=== PATIENT | female | born 1930 | race Caucasian/White ===

== ENCOUNTER → 2016-05-05 | Outpatient (CLI) | payer OTHER | LOC: MMPC 11:11 | DX: I34.0 Nonrheumatic mitral (valve) insufficiency (principal); I35.0 Nonrheumatic aortic (valve) stenosis; E55.9 Vitamin D deficiency, unspecified; K21.9 Gastro-esophageal reflux disease without esophagitis; E03.9 Hypothyroidism, unspecified; I48.91 Unspecified atrial fibrillation; H40.9 Unspecified glaucoma | CPT/HCPCS: 99213 ==

== ENCOUNTER → 2016-06-25 | Outpatient (CLI) | payer OTHER ==
[2016-06-25 17:22] LABS: BASOPHILS # (AUTO) 0.05 10*3/UL; BASOPHILS % (AUTO) 0.7 % (0-1); EOSINOPHILS % (AUTO) 3.6 % (0-8); HEMATOCRIT 39.8 % (37.0-47.0); HEMOGLOBIN 13.2 g/dL (12.0-16.0); IMM GRAN % (AUTO) 0.1 % (0-5); IMM GRAN# (AUTO) 0.01 10*3/UL; LYMPHOCYTES # (AUTO) 2.69 10*3/uL; LYMPHOCYTES % (AUTO) 37.6 % (10-50); MEAN CORPUSCULAR HEMOGLOBIN 31.8 PG (27-31); MEAN CORPUSCULAR HGB CONC 33.2 g/dL (33-37); MEAN PLATELET VOLUME 10.9 FL (7.4-12.2); MONOCYTES # (AUTO) 0.98 10*3/UL (0.3-0.8); MONOCYTES % (AUTO) 13.7 % (5-15); NEUTROPHILS # (AUTO) 3.16 10*3/UL; NEUTROPHILS % (AUTO) 44.3 % (50-80); RDW COEFFICIENT OF VARIATION 13.4 % (11.5-14.5); RED BLOOD COUNT 4.15 10^6/uL (4.20-5.40); WHITE BLOOD COUNT 7.15 10^3/uL (4.8-10.8)
[2016-06-25 17:29] LABS: PLATELET MORPHOLOGY COMMENT NORMAL MORPHOLOGY (NORM)
[2016-06-25 17:34] LABS: ASPARTATE AMINO TRANSFERASE 33 IU/L (8-39); BILIRUBIN,TOTAL 0.6 mg/dL (0.3-1.2); BLOOD UREA NITROGEN 26 mg/dL (7-22); CALCIUM 9.1 mg/dL (8.7-10.7); CHLORIDE 103 meq/L (98-112); CREATININE 1.3 mg/dL (0.50-1.20); GLUCOSE 106 mg/dL (78-110); HDL CHOLESTEROL 51 mg/dL (40-150); POTASSIUM 3.9 meq/L (3.8-5.2); SODIUM 143 meq/L (135-145); TOTAL PROTEIN 7.3 g/dL (6.1-8.0); TRIGLYCERIDES 143 mg/dL (44-200)
== END ==
LOC: MOB LAB 14:57
DX: I50.9 Heart failure, unspecified (principal); I34.0 Nonrheumatic mitral (valve) insufficiency; I10 Essential (primary) hypertension; K21.9 Gastro-esophageal reflux disease without esophagitis
CPT/HCPCS: 36415; 80053; 80061; 83880; 85025

== ENCOUNTER → 2016-08-28 | Outpatient (CLI) | payer OTHER ==
[2016-08-28 15:45] LABS: BASOPHILS # (AUTO) 0.04 10*3/UL; BASOPHILS % (AUTO) 0.5 % (0-1); EOSINOPHILS # (AUTO) 0.47 10*3/UL; HEMATOCRIT 37.1 % (37.0-47.0); HEMOGLOBIN 12.5 g/dL (12.0-16.0); LYMPHOCYTES # (AUTO) 2.53 10*3/uL; MEAN CORPUSCULAR HEMOGLOBIN 31.3 PG (27-31); MEAN CORPUSCULAR HGB CONC 33.7 g/dL (33-37); MEAN CORPUSCULAR VOLUME 92.8 FL (81-99); MEAN PLATELET VOLUME 10.6 FL (7.4-12.2); MONOCYTES # (AUTO) 0.91 10*3/UL (0.3-0.8); MONOCYTES % (AUTO) 11.6 % (5-15); NEUTROPHILS # (AUTO) 3.91 10*3/UL; NEUTROPHILS % (AUTO) 49.7 % (50-80)
[2016-08-28 15:51] LABS: PLATELET MORPHOLOGY COMMENT NORMAL MORPHOLOGY (NORM); RBC MORPHOLOGY COMMENT NORMAL MORPHOLOGY (NORM); WBC MORPHOLOGY COMMENT NORMAL MORPHOLOGY (NORM)
[2016-08-28 15:53] LABS: BUN/CREATININE RATIO 20.9 (6-20); CALCIUM 9.4 mg/dL (8.7-10.7)
== END ==
LOC: MOB LAB 14:03
DX: K21.9 Gastro-esophageal reflux disease without esophagitis (principal); I10 Essential (primary) hypertension; I34.0 Nonrheumatic mitral (valve) insufficiency; I50.9 Heart failure, unspecified
CPT/HCPCS: 36415; 80048; 83880; 85025

== ENCOUNTER 2016-09-01 07:11 | Day surgery (SDC) | payer OTHER ==
[~2016-09-01 07:11] MED LIST: LIDOCAINE W/ SODIUM BICARB 0.5 ML SYR ONE; Lactated Ringers 1,000 ML PRIMARY IV ONE
[2016-09-01] MEDS ORDERED: fentaNYL Inj 100 MCG/2 ML VIAL IVP ONE (07:30)
[2016-09-01] MEDS ORDERED: MIDAZOLAM 5 MG/1 ML IVP ONE (07:30)
[2016-09-01 10:30] VITALS: RESP 16; TEMP 97.8
== END 2016-09-01 10:35 | disposition home or self-care (01) ==
LOC: SDSC 07:11
PROVIDERS: ATTEND Ophthalmology
DX: H25.11 Age-related nuclear cataract, right eye (principal); I38 Endocarditis, valve unspecified; E55.9 Vitamin D deficiency, unspecified; E03.9 Hypothyroidism, unspecified; K21.9 Gastro-esophageal reflux disease without esophagitis
CPT/HCPCS: 66984; J3010; J2250; J7120

== ENCOUNTER 2017-12-10 16:41 | Inpatient (IN) ==
[2017-12-10] MEDS ORDERED: ONDANSETRON 4 MG/2 ML VIAL IVP ONE (16:51)
[2017-12-10] MEDS ORDERED: Sodium Chloride 0.9% 1,000 ML PRIMARY IV ONE (16:51)
[2017-12-10 17:10] LABS: BLOOD UREA NITROGEN 12 mg/dL (7-22); SERUM ALBUMIN 4.9 g/dL (3.5-4.8)
[2017-12-10 17:21] LABS: Hematocrit [HCT] 46.1 % (37.0-47.0); Hemoglobin [HGB] 16.4 g/dL (12.0-16.0); MEAN CORPUSCULAR HEMOGLOBIN 32.3 PG (27-31); MEAN CORPUSCULAR VOLUME 90.9 FL (81-99); RED BLOOD COUNT 5.07 10^6/uL (4.20-5.40)
[2017-12-10 17:22] LABS: BASOPHILS % (AUTO) 0.2 % (0-1); EOSINOPHILS % (AUTO) 0 % (0-8); LYMPHOCYTES # (AUTO) 1.25 10*3/uL; MEAN CORPUSCULAR HGB CONC 35.6 g/dL (33-37); MONOCYTES # (AUTO) 0.49 10*3/UL (0.3-0.8); MONOCYTES % (AUTO) 5.3 % (5-15); NEUTROPHILS % (AUTO) 80.7 % (50-80)
[2017-12-10 17:23] LABS: BASOPHILS # (AUTO) 0.02 10*3/UL; EOSINOPHILS # (AUTO) 0 10*3/UL; PLATELET MORPHOLOGY COMMENT NORMAL MORPHOLOGY (NORM); RBC MORPHOLOGY COMMENT NORMAL MORPHOLOGY (NORM); WBC MORPHOLOGY COMMENT NORMAL MORPHOLOGY (NORM)
--- NOTE | 2017-12-10 17:44 | DI ---
CT Head WO Contrast,12/10/2017 4:50 PM: Clinical History: Confusion Previous Exam: October 11, 2017 Findings: Multiple helically acquired CT images are obtained through the brain without contrast, and demonstrat e normal, symmetric ventricles and other CSF containing spaces. There is no mass, hemorrhage or midli ne shift. There are advanced peripheral vascular calcifications within the left and right vertebral a rteries. Impression: No acute intracranial pathology.
[2017-12-10 18:12] LABS: BILIRUBIN,URINE NEGATIVE (NEG); CLARITY,URINE CLEAR (CLEAR); COLOR,URINE YELLOW (Y); GLUCOSE, URINE (UA) 100 mg/dL (NEG); OCCULT BLOOD,URINE SMALL (NEG); PROTEIN,URINE >300 mg/dl (NEG); UROBILINOGEN,URINE 0.2 EU/dL (0.2)
--- NOTE | 2017-12-10 18:16 | DI ---
XR CXR 1VW,12/10/2017 4:50 PM: Clinical History: Confusion Previous Exam: None at this facility. Findings: A single frontal radiograph of the chest is obtained, and demonstrate clear lungs. The cardiomediasti num and bony thorax are unremarkable. Overlying EKG leads are seen. Postsurgical changes are seen consistent with an persistent ductus arteriosus Impression: No acute disease.
[2017-12-10 18:27] LABS: BACTERIA,URINE RARE; RENAL EPITHELIAL CELLS,URINE MODERATE; SQUAMOUS EPITHELIAL CELL,UR MANY; URINE SAMPLE TYPE CATH SPECIMEN
[2017-12-10] MEDS ORDERED: AMIODARONE 50 MG/ML IV ONE (19:03)
[2017-12-10] MEDS ORDERED: D5W 100 ML IV ONE (19:19)
[2017-12-10] MEDS ORDERED: AMIODARONE 150 MG/100 ML IV ONE (19:23)
[2017-12-10] MEDS: AMIODARONE 360 MG/200 ML IV SCH (20:02)
--- NOTE | 2017-12-10 20:05 | PDOC ---
Nausea/Vomiting/Diarrhea HPI - General Chief Complaint: Nausea / Vomiting / Diarrhea Stated Complaint: 'NOT ACTING RIGHT' Date Seen by Provider: 12/10/17 Time Seen by Provider: 16:35 Source: POSITIVE: Patient, EMS, Other (Daughter) Exam Limitations: POSITIVE: No limitations Nurse's Notes Reviewed & Considered: Yes EMS Report Reviewed & Considered: Verbal - History of Present Illness Initial Comments: The patient is an 87-year-old female who is brought to the emergency department by ambulance with complaints of increased confusion and general malaise and weakness. 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 Apparently all day today she has had some increased confusion and some trouble with speech difficulty and word finding. She also has associated nausea and daughter reports several episodes of emesis. She has a poor appetite normally and today has not really eaten or drinking much of anything. She denies any current headache, chest pain, palpitation, shortness of breath, abdominal pain. She apparently had similar type symptoms about 6 weeks ago and was diagnosed with a TIA. She does have a history of chronic urinary incontinence, she denies urinary symptoms otherwise. She has not had any known fever. - Patient Home Medications Home Medications: Home Medications lisinopril 40 mg tablet 40 mg PO QDAY #90 tab 02/18/17 omeprazole 20 mg capsule,delayed release 20 mg PO QDAY #90 cap 04/29/17 aspirin 81 mg tablet,delayed release 81 mg PO QDAY 11/02/17 cholecalciferol (vitamin D3) 2,000 unit capsule 2,000 unit PO QDAY #30 cap 11/02 rosuvastatin 5 mg tablet 5 mg PO QDAY #90 tab 11/06/17 apixaban 2.5 mg tablet 2.5 mg PO BID #180 tab 11/30/17 levothyroxine 75 mcg tablet 75 mcg PO QDAY #90 tab 11/30/17 - Patient Allergies Allergies/Adverse Reactions: Allergies 3 Allergy/AdvReac Type Severity Reaction Status Date / Time Penicillins AdvReac Unknown UNSURE Verified 12/10/17 16:50 Past Medical History - heen HEENT History: Cataracts, Dentures/Partials Additional HEENT History: bottom Cardiovascular History: Hypertension, Other (please comment) Additional Cardiovasular History: BOVINE VALVE - TRICUSPID. VALVE WITH CLIPS - MITRAL VALVE Respiratory History: Denies History Gastrointestinal History: GERD Genitourinary History: Denies History Additional Genitourinary History: UTI 12/12/2015 Endocrine History: Hypothyroidism Musculoskeletal History: Back Pain Prosthesis or Implant: No Neurological History: TIA Blood Disorders: Denies History, Previous Bld Transfusions Additional Blood Disorders History: with heart surgery Psychiatric History: Denies History History of Sexually Transmitted Diseases: No Cancer History: Denies History In Past Year Been Physically Harmed or Verbally Threatened: No History of MDRO: No History of Other Communicable Diseases: No Tobacco Use: Never Smoker Alcohol Use: Occasionally In the Past 12 Months, Have Used or Abuse Any Substance: None Previous Surgical History: Yes Type / Date of Surgery: hysterectomy/ open heart/ CATARACT EXT Anesthesia Reactions: No Malignant Hyperthermia: No Significant Family History: Cancer Past Medical History Reviewed: Reviewed - No Changes ROS - Limitations ROS Limitations: No Limitations Constitution: REPORTS: Weakness, Other. DENIES: Chills, Fever Cardiovascular: DENIES: Chest Pain (General malaise today), Heart Palpitations, Edema Respiratory: DENIES: Shortness Of Breath Neurological: DENIES: Headache, Numbness, Weakness Gastrointestinal: REPORTS: Nausea, Vomitting. DENIES: Abdominal Pain, Diarrhea Endocrine: REPORTS: Fatigue Musculoskeletal: DENIES: Lower Extremity Swelling Genitourinary: REPORTS: Other (Chronic urinary incontinence). DENIES: Dysuria Eyes: REPORTS: Denies Symptoms ENT: REPORTS: Denies Symptoms Skin: DENIES: Rash Nausea/Vomiting/Diarrhea Exam - General Appearance General Appearance: POSITIVE: Alert, Cooperative, No Acute Distress - HEENT HEENT: POSITIVE: Head Inspection Nml, Eyes Inspection Nml, Ears Inspection Nml, Oral/Dental Inspect. Nml, Dry Mucous Membranes - Neck Neck: POSITIVE: Supple - Respiratory Respiratory: POSITIVE: No Respiratory Distress, Breath Sounds Normal - Cardiovascular Cardiovascular: POSITIVE: Other (She was tachycardic with a heart rate in the 130s) - Abdomen Abdomen: Soft: (All Quadrants), Normal Bowel Sounds: (All Quadrants), No Guarding: (All Quadrants), No Rebound: (All Quadrants), No [place] Mass: (All Quadrants), No Distention: (All Quadrants) - Back Back: POSITIVE: Normal Inspection - Skin Skin: POSITIVE: Intact, No Rash - Extremities Extremity: Normal ROM: (All Extremities), Normal Inspection: (All Extremities) - Neurological / Psychological Neurological: POSITIVE: Oriented X3, tricot knitter Normal As Tested, Motor Normal, Sensation Normal, Other (She has no obvious focal neurologic deficits, she occasionally does have some trouble with word finding, her speech is otherwise clear and she does answer questions appropriately and follow commands) N/V/D Progress - Results Reviewed by me Xrays/CTs/US Reviewed by me: Yes Discussed with Radiologist: Yes Radiology Findings: CT head shows no acute findings per radiologist, chest x- ray shows no acute findings per radiologist. Lab Results Reviewed by Me: Yes CBC and BMP: 12/10/17 16:50 12/10/17 16:25 Lab Results:: Laboratory Results 3 12/10/17 12/10/17 12/10/17 16:25 16:25 16:25 WBC RBC Hgb Hct MCV MCH MCHC RDW Std Deviation RDW Coeff of Joseph Plt Count MPV Immature Gran % (Auto) Neut % (Auto) Lymph % (Auto) [place] % (Auto) Eos % (Auto) Baso % (Auto) Immature Gran # (Auto) Neut # (Auto) Lymph # (Auto) [place] # (Auto) Eos # (Auto) Baso # (Auto) WBC Morphology Comment Plt Morphology Comment RBC Morph Comment D-Dimer Sodium 133 L Potassium 3.4 L Chloride 97 L Carbon Dioxide 22 L Anion Gap 14 BUN 12 Creatinine 0.8 BUN/Creatinine Ratio 15.00 Glucose 189 H Calculated Osmolality 280.0 Lactic Acid Calcium 9.7 Magnesium 1.6 Total Bilirubin 0.9 AST 44 H ALT 26 Alkaline Phosphatase 120 Total Creatine Kinase 74 Troponin I 0.040 C-Reactive Protein 0.6 NT-Pro-B Natriuret Pep 83909 H Total Protein 9.2 H Albumin 4.9 H Globulin 4.3 H Albumin/Globulin Ratio 1.10 L TSH 0.080 L Free T4 2.35 H Ur Collection Type Urine Color Urine Clarity Urine pH Ur Specific [place] Urine Protein Urine Glucose (UA) Urine Ketones Urine Occult Blood Urine Nitrate Urine Bilirubin Urine Urobilinogen Ur Leukocyte Esterase Urine RBC Urine WBC Ur Squamous Epith Cells Ur Renal Epithelial Cell Urine Crystals Urine Bacteria Urine Casts Urine Mucus Urine Trichomonas Urine Yeast Ur Culture Indicated? 3 12/10/17 12/10/17 12/10/17 16:50 16:50 16:50 WBC 9.18 RBC 5.07 Hgb 16.4 H Hct 46.1 MCV 90.9 MCH 32.3 H MCHC 35.6 RDW Std Deviation 41.4 RDW Coeff of Joseph 12.6 Plt Count 279 MPV 11.0 Immature Gran % (Auto) 0.2 Neut % (Auto) 80.7 H Lymph % (Auto) 13.6 [place] % (Auto) 5.3 Eos % (Auto) 0 Baso % (Auto) 0.2 Immature Gran # (Auto) 0.02 Neut # (Auto) 7.40 Lymph # (Auto) 1.25 [place] # (Auto) 0.49 Eos # (Auto) 0 Baso # (Auto) 0.02 WBC Morphology Comment Normal morphology Plt Morphology Comment Normal morphology RBC Morph Comment Normal morphology D-Dimer 1.39 H Sodium Potassium Chloride Carbon Dioxide Anion Gap BUN Creatinine BUN/Creatinine Ratio Glucose Calculated Osmolality Lactic Acid 2.6 H Calcium Magnesium Total Bilirubin AST ALT Alkaline Phosphatase Total Creatine Kinase Troponin I C-Reactive Protein NT-Pro-B Natriuret Pep Total Protein Albumin Globulin Albumin/Globulin Ratio TSH Free T4 Ur Collection Type Urine Color Urine Clarity Urine pH Ur Specific [place] Urine Protein Urine Glucose (UA) Urine Ketones Urine Occult Blood Urine Nitrate Urine Bilirubin Urine Urobilinogen Ur Leukocyte Esterase Urine RBC Urine WBC Ur Squamous Epith Cells Ur Renal Epithelial Cell Urine Crystals Urine Bacteria Urine Casts Urine Mucus Urine Trichomonas Urine Yeast Ur Culture Indicated? 3 12/10/17 18:00 WBC RBC Hgb Hct MCV MCH MCHC RDW Std Deviation RDW Coeff of Joseph Plt Count MPV Immature Gran % (Auto) Neut % (Auto) Lymph % (Auto) [place] % (Auto) Eos % (Auto) Baso % (Auto) Immature Gran # (Auto) Neut # (Auto) Lymph # (Auto) [place] # (Auto) Eos # (Auto) Baso # (Auto) WBC Morphology Comment Plt Morphology Comment RBC Morph Comment D-Dimer Sodium Potassium Chloride Carbon Dioxide Anion Gap BUN Creatinine BUN/Creatinine Ratio Glucose Calculated Osmolality Lactic Acid Calcium Magnesium Total Bilirubin AST ALT Alkaline Phosphatase Total Creatine Kinase Troponin I C-Reactive Protein NT-Pro-B Natriuret Pep Total Protein Albumin Globulin Albumin/Globulin Ratio TSH Free T4 Ur Collection Type Cath specimen Urine Color Yellow Urine Clarity Clear Urine pH 8.0 Ur Specific [place] 1.025 Urine Protein >300 A Urine Glucose (UA) 100 Urine Ketones 40 Urine Occult Blood Small H Urine Nitrate Negative Urine Bilirubin Negative Urine Urobilinogen 0.2 Ur Leukocyte Esterase Negative Urine RBC 1-3 Urine WBC 4-8 H Ur Squamous Epith Cells Many Ur Renal Epithelial Cell Moderate Urine Crystals None Urine Bacteria Rare Urine Casts None Urine Mucus Many Urine Trichomonas None Urine Yeast None Ur Culture Indicated? Culture not set EKG Interpreted/Reviewed By Me:: Yes EKG Interpretation:: POSITIVE: Other (EKG shows atrial fibrillation with rapid ventricular response with a rate in the 130s) - Patient's Progress MDM / ED Course: The patient is in atrial fibrillation with rapid ventricular response with rate in the 130s on arrival. Her blood pressure is in the 90s to 100 systolically. She appears to be clinically dehydrated. An IV was established and blood cultures and lactate were drawn with IV start. She did receive a 1 L bolus of normal saline. Her rate remained in the 130s. Her chest x-ray shows no evidence of failure or any other acute findings per radiologist. Head CT shows no acute findings per radiologist. Blood work reveals a normal white count, normal H&H, her sodium is slightly low at 133 and her potassium is 3.4. Her troponin is normal at 0.04 and her BNP is markedly elevated at 14,000. TSH is suppressed and her free T4 is slightly elevated at 2.35. Urinalysis does not show any obvious infection. The patient does have a history of atrial fibrillation however has been in sinus rhythm on recent EKGs. I did discuss the patient with Dr. Jackson who is the patient's motion picture director in [place]. He recommended starting amiodarone IV protocol with 150 mg bolus initially followed by 1 mg a minute for 6 hours and 0.5 mg a minute for 18 hours. The patient is anticoagulated on eliquis. The increased confusion and word finding could represent a new TIA versus just worsening of symptoms because of her current dehydration and atrial fibrillation etc. The patient's thyroid studies show an elevated thyroid level. The patient will be admitted per hospitalist service and Dr. Molina has agreed to admit the patient. - Consult Counseled: POSITIVE: Patient, Family, RE: Lab Results, RE: Radiology Results, RE : DX Patient Care Time - Estimated PCT Patient Care Time (In Minutes): 50 Vital Signs - Recent Vital Signs Vital Signs: Vital Signs (Last 8 hours) Temp Pulse Resp BP Pulse Ox 12/10/17 16:34 98.5 F 134 H 18 111/94 94 - VS Reviewed Vital Signs Reviewed: Yes Discharge Clinical Impression: Status post heart valve replacement, Atrial fibrillation with rapid ventricular response, Hypokalemia, Hyperthyroidism Discharge Disposition: Admit to Inpatient Condition: Stable Follow Up With: MYA ARCHER [Primary Care Provider] - Date Decision to Admit to Inpatient: 12/10/17 Time Decision to Admit to Inpatient: 18:45
--- NOTE | 2017-12-10 20:17 | PDOC ---
HPI - History of Present Illness Date of Service: 12/10/17 Time of Service: 20:30 Chief Complaint: Not feeling well today, problems with speech and nausea History of Present Illness: This is a 87 years old female with medical history significant for history of hypertension, hypothyroidism, history of aortic valve replacement with bovine valve and history of mitral valve clipping who was brought to the hospital for evaluation because of weakness and confusion. The patient herself said that she's been feeling sleepy and tired today and the she didn't recognize it that she had some problem with her speech it was her daughter who recognized that and brought her to the hospital. She said she had dry heaving before she came in. She denied diarrhea. Apparently She didn't eat today and she did not take her pills. She said she forgot to take her pills. She said she saw recently Dr. Del Toro and she was taking the eliquis 10 mg twice a day then cut it back to 5 m on twice a day and then he told her to take 2.5 twice a day but apparently she was taken only 5 mg in the evening because the pill size is small. She is denying chest pain denying shortness of breath denying palpitation. She is feeling weak. No family present so history is somewhat limited. Past Medical History Medical History: 1. Hypertension. 2. GERD. 3. hypothyroidism. 4. 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 5. History of atrial fibrillation. 6. History of mitral valve clipping. 7. Admission in September 2017 for TIA. 8. History of hypercholesterolemia Surgical History: 1. Hysterectomy. 2. Aortic valve replacement with Maze procedure for atrial fibrillation. 3. Status post mitral valve clipping Family History: Reviewed an Not Pertinent Past Social History: She does not smoke, does not drink, lives by herself. She still dry. She said she gets her lunch at the [employer]. Tobacco Use: Never Smoker In the Past 12 Months, Have Used or Abuse Any of the Following Substance: None Alcohol Use: None Medication / Allergies Home Medications: Home Medications 3 Medication Instructions Recorded Confirmed Type lisinopril 40 mg tablet 40 mg PO QDAY #90 tab 02/18/17 12/10/17 Rx omeprazole 20 mg capsule,delayed 20 mg PO QDAY #90 cap 04/29/17 12/10/17 Rx release aspirin 81 mg tablet,delayed 81 mg PO QDAY 11/02/17 12/10/17 History release cholecalciferol (vitamin D3) 2,000 2,000 unit PO QDAY #30 cap 11/02/17 12/10/17 History unit capsule rosuvastatin 5 mg tablet 5 mg PO QDAY #90 tab 11/06/17 12/10/17 Rx apixaban 2.5 mg tablet 2.5 mg PO BID #180 tab 11/30/17 12/10/17 Rx levothyroxine 75 mcg tablet 75 mcg PO QDAY #90 tab 11/30/17 12/10/17 Rx Allergies/Adverse Reactions: Allergies 3 Allergy/AdvReac Type Severity Reaction Status Date / Time Penicillins AdvReac Unknown UNSURE Verified 12/10/17 16:50 Review of Systems - Review of Systems All Systems: Reviewed & No Additional Complaints Except as Stated Exam - Vitals Vital Signs: Vital Signs Temperature 98.5 F Temperature Source Oral Pulse Rate [Pulse Oximeter] 134 Respiratory Rate 18 Blood Pressure [Left Arm] 111/94 Pulse Ox 94 Oxygen Delivery Method Room Air Height 5 ft 6 in Weight 230 lb - General General Appearance: No Acute Distress, Cooperative - Head Head Exam: Normal Inspection, Atraumatic - Eye Eye Exam: POSITIVE: Normal Appearance - ENT ENT Exam: POSITIVE: Normal Exam - Neck Neck Exam: Normal Inspection - Respiratory Respiratory Exam: POSITIVE: Clear to Auscultation - Bilaterally - Cardiovascular Cardiovascular Exam: POSITIVE: Irregular Rhythm, Tachycardia - GI/Abdominal GI/Abdominal Exam: POSITIVE: Normal Bowel Sounds, Non Tender, Non Distended, Soft, No Organomegaly - Rectal Rectal Exam: POSITIVE: Deferred - External Exam: POSITIVE: Deferred - Extremities Extremities Exam: POSITIVE: Normal Inspection - Back Back Exam: POSITIVE: Normal Inspection - Neurological Neurological Exam: POSITIVE: Alert, Oriented x 3, CN II-XII Intact, No Facial Droop, Speech Intact / Clear, Moves All Extremities Equally - Psychiatric Psychiatric Exam: POSITIVE: Normal Affect Results - Labs CBC and BMP: 12/11/17 04:11 12/11/17 04:11 - EKG Data -: EKG Interpreted by Me - EKG Data Additional EKG Details: EKG showed atrial fibrillation with rapid ventricular response - Imaging Status: Report Reviewed by Me (CT head showed no acute intra-cranial pathology Chest x-ray showed no acute changes) Assessment and Plan - Patient Problems (1) Atrial fibrillation with rapid ventricular response Current Visit: Yes Status: Acute Comment: This was discussed with the Dr. Herrera by the ER physician and he recommended putting her on amiodarone drip will keep the same plan. The eliquis dosage is inadequate because she take it once a day and probably she will be not anticoagulated for a period of time I did tell her that this will divide the dosage to twice a day. Code(s): I48.91 - Unspecified atrial fibrillation (2) Dehydration Current Visit: Yes Status: Acute Comment: She looks somewhat dehydrated will put her on some IV fluid and will replace her potassium. Repeat her labs in the morning. Though her BNP is elevated but I think she is more on the dehydrated side. We'll give her cautious amount of fluid. Code(s): E86.0 - Dehydration (3) Iatrogenic hyperthyroidism Current Visit: Yes Status: Acute Comment: Her T4 is elevated and her TSH is suppressed. Maybe this is a trigger also for atrial fibrillation we will hold her levothyroxin tomorrow. Code(s): E05.80 - Other thyrotoxicosis without thyrotoxic crisis or storm (4) Confusion Current Visit: Yes Status: Acute Comment: Maybe multifactorial, will see how she looks tomorrow will decide about doing an MRI. Code(s): R41.0 - Disorientation, unspecified (5) Abnormal finding on urinalysis Current Visit: Yes Status: Acute Comment: Her UA is somewhat abnormal and there is slight elevation in lactate will cover with antibiotics until we have culture results. Code(s): R82.90 - Unspecified abnormal findings in urine
[2017-12-10] MEDS ORDERED: ACETAMINOPHEN 325 MG TABLET PO PRN (21:03)
[2017-12-10] MEDS ORDERED: LIDOCAINE W/ SODIUM BICARB 0.5 ML SYR SUBD PRN (21:03)
[2017-12-10] MEDS ORDERED: DOCUSATE 100 MG CAPSULE PO PRN (21:03)
[2017-12-10] MEDS ORDERED: CALCIUM CARBONATE 500 MG (TUMS) CHEWABLE TABLET PO PRN (21:03)
[2017-12-10] MEDS ORDERED: Apixaban Tab 2.5 MG TABLET PO SCH (21:15)
[2017-12-10] MEDS ORDERED: cefTRIAXone Inj 1 GM in Sodium Chloride 0.9% 100 ML IV SCH (21:30)
[2017-12-11] MEDS: ONDANSETRON 4 MG/2 ML VIAL IVP PRN ×3 (00:28→06:04)
--- NOTE | 2017-12-11 00:59 | EKG ---
[address] [address] Measurements Intervals [place] Rate: 134 P: HI: 0 QRS: 21 QRSD: 100 T: 257 QT: 356 QTc: 435 Interpretive Statements Atrial fibrillation with RVR to 134 BPM Compared to ECG 10/11/2017 23:28:31 Sinus rhythm no longer present Left ventricular hypertrophy no longer present Myocardial infarct finding no longer present Electronically Signed On 12-11-17 08:36:34 MDT by Darrius Shelton MD [email or web address]
[2017-12-11] MEDS: AMIODARONE 360 MG/200 ML IV SCH (02:17)
[2017-12-11 03:20] VITALS: TEMP 99.1
[2017-12-11 04:57] LABS: BASOPHILS # (AUTO) 0.02 10*3/UL; BASOPHILS % (AUTO) 0.2 % (0-1); EOSINOPHILS # (AUTO) 0.06 10*3/UL; EOSINOPHILS % (AUTO) 0.6 % (0-8); Hematocrit [HCT] 38.9 % (37.0-47.0); Hemoglobin [HGB] 13.5 g/dL (12.0-16.0); LYMPHOCYTES # (AUTO) 2.02 10*3/uL; MEAN CORPUSCULAR HEMOGLOBIN 32.1 PG (27-31); MEAN CORPUSCULAR HGB CONC 34.7 g/dL (33-37); MEAN CORPUSCULAR VOLUME 92.4 FL (81-99); MEAN PLATELET VOLUME 10.8 FL (7.4-12.2); MONOCYTES # (AUTO) 1.22 10*3/UL (0.3-0.8); MONOCYTES % (AUTO) 11.2 % (5-15); NEUTROPHILS # (AUTO) 7.55 10*3/UL; NEUTROPHILS % (AUTO) 69.3 % (50-80); RED BLOOD COUNT 4.21 10^6/uL (4.20-5.40)
[2017-12-11 04:58] LABS: PLATELET MORPHOLOGY COMMENT NORMAL MORPHOLOGY (NORM); RBC MORPHOLOGY COMMENT NORMAL MORPHOLOGY (NORM); WBC MORPHOLOGY COMMENT NORMAL MORPHOLOGY (NORM)
[2017-12-11 05:03] LABS: BLOOD UREA NITROGEN 16 mg/dL (7-22); SERUM ALBUMIN 3.6 g/dL (3.5-4.8)
[2017-12-11] MEDS ORDERED: Diltiazem Drip 125 MG in Sodium Chloride 0.9% 100 ML IV SCH (05:45)
[2017-12-11] MEDS ORDERED: ONDANSETRON 4 MG/2 ML VIAL ONE (06:03)
[2017-12-11] MEDS ORDERED: DILTIAZEM 5 MG/ML - 5 ML IV ONE ×2 (06:05)
[2017-12-11 06:50] VITALS: RESP 24
[2017-12-11] MEDS ORDERED: OMEPRAZOLE 20 MG CAPSULE PO SCH (07:00)
[2017-12-11 07:16] VITALS: BP 184/108; O2SAT 99
--- NOTE | 2017-12-11 07:25 | DCSUMMARY ---
Hospitalization Summary Admit Date: 12/10/2017 Discharge Date: 12/11/17 Hospital Course: Transfer diagnoses 1. Atrial flutter/fibrillation with RVR 2. History of aortic valve replacement with bovine valve 3. History of mitral clipping before 4. History of Maze procedure for atrial fibrillation 5. Hypertension 6. GERD 7. Iatrogenic hyperthyroidism 8. Admission in September 2017 for TIA Hospital course This is a 87 years old female medical history significant for history of hypertension, hypothyroidism, history of aortic valve replacement with bovine valve and history of mitral valve clipping who was brought to the hospital for evaluation because of weakness and confusion and dry heaving. The patient herself said that she's been feeling sleepy and tired on the day she came into the hospital, she did not notice that she had was problem with her speech but it was the daughter who recognized that the patient was having problem with she speech and because of that they brought her to the hospital. She did say that she is been having dry heaving before she came in. She denied diarrhea there was no chest pain and no shortness of breath. She didn't eat well and she did not take her pills. By the time she came into the ER it was found that she is in atrial fibrillation uncontrolled rate the case was discussed with Dr. Herrera the log hooker in [place] who suggested starting her on amiodarone as her blood pressure was borderline in the ER. it Was also felt that she was dehydrated and she was given fluids and was admitted. Patient was admitted to the hospital and was put on amiodarone drip per Recommendation of cardiology. We Did give her some fluids with potassium. We thought that she was on the dehydrated side and give her cautious amount of fluid. her lactate was elevated when she came in so we took cultures and gave a dose of Rocephin until we have culture result. it Was noted that she is having iatrogenic hyperthyroidism so we've held her levothyroxin. The other thing is that she's been taken her eliquis once a day 5 mg instead of 2.5 twice a day and we gave her 2.5 last night. In the car dumper operator helper her heart rate went up to the 140s- 160s despite being on amiodarone drip and she started to feel sick and nauseated so we switched the drip to Cardizem drip. We gave her boluses and she is on Cardizem drip. Heart rate remained in atrial flutter uncontrolled rate. Because of the symptoms and persistent elevated heart rate I spoke with the log hooker Dr. Browne who is automation controls specialist for Dr. Herrera and he accepted the patient and patient will be transferred at one point today. Laboratory Results 12/10/17 12/10/17 12/10/17 Range/Units 16:25 16:25 16:25 WBC (4.8-10.8) 10^3/uL RBC (4.20-5.40) 10^6/uL Hgb (12.0-16.0) g/dL Hct (37.0-47.0) % MCV (81-99) FL MCH (27-31) PG MCHC (33-37) g/dL RDW Std Deviation (39-50) fL RDW Coeff of Joseph (11.5-14.5) % Plt Count (140-350) 10*3/uL MPV (7.4-12.2) FL Immature Gran % (Auto) (0-5) % Neut % (Auto) (50-80) % Lymph % (Auto) (10-50) % [place] % (Auto) (5-15) % Eos % (Auto) (0-8) % Baso % (Auto) (0-1) % Immature Gran # (Auto) 10*3/UL Neut # (Auto) 10*3/UL Lymph # (Auto) 10*3/uL [place] # (Auto) (0.3-0.8) 10*3/UL Eos # (Auto) 10*3/UL Baso # (Auto) 10*3/UL WBC Morphology Comment (NORM) Plt Morphology Comment (NORM) RBC Morph Comment (NORM) D-Dimer (0.00-0.59) mg/L Sodium 133 L (135-145) meq/L Potassium 3.4 L (3.8-5.2) meq/L Chloride 97 L (98-112) meq/L Carbon Dioxide 22 L (23-33) meq/L Anion Gap 14 (5-20) BUN 12 (7-22) mg/dL Creatinine 0.8 (0.50-1.20) mg/dL BUN/Creatinine Ratio 15.00 (6-20) Glucose 189 H (78-110) mg/dL Calculated Osmolality 280.0 (267-292) mOsm/kg Lactic Acid (0.70-2.10) MMOL/L Calcium 9.7 (8.7-10.7) mg/dL Magnesium 1.6 (1.6-2.4) mg/dL Total Bilirubin 0.9 (0.3-1.2) mg/dL AST 44 H (8-39) IU/L ALT 26 (9-52) IU/L Alkaline Phosphatase 120 (38-126) IU/L Total Creatine Kinase 74 (30-136) IU/L Troponin I 0.040 (< 0.040) ng/mL C-Reactive Protein 0.6 (0.0-0.9) mg/dL NT-Pro-B Natriuret Pep 80298 H (0-450) PG/ML Total Protein 9.2 H (6.1-8.0) g/dL Albumin 4.9 H (3.5-4.8) g/dL Globulin 4.3 H (2.50-4.10) g/dL Albumin/Globulin Ratio 1.10 L (1.3-2.0) mg/g TSH 0.080 L (0.2700-4.2000) uIU/mL Free T4 2.35 H (0.93-1.71) ng/dL Ur Collection Type Urine Color (Y) Urine Clarity (CLEAR) Urine pH (5.0-8.5) Ur Specific [place] (1.005-1.030) Urine Protein (NEG) mg/dl Urine Glucose (UA) (NEG) mg/dL Urine Ketones (NEG) Urine Occult Blood (NEG) Urine Nitrate (NEG) Urine Bilirubin (NEG) Urine Urobilinogen (0.2) EU/dL Ur Leukocyte Esterase (NEG) Urine RBC (NONE) /hpf Urine WBC (NONE) Ur Squamous Epith Cells (NONE) Ur Renal Epithelial Cell (NONE) Urine Crystals Urine Bacteria (NONE) Urine Casts (NONE) Urine Mucus (NONE) Urine Trichomonas (NONE) Urine Yeast (NONE) Ur Culture Indicated? 12/10/17 12/10/17 12/10/17 Range/Units 16:50 16:50 16:50 WBC 9.18 (4.8-10.8) 10^3/uL RBC 5.07 (4.20-5.40) 10^6/uL Hgb 16.4 H (12.0-16.0) g/dL Hct 46.1 (37.0-47.0) % MCV 90.9 (81-99) FL MCH 32.3 H (27-31) PG MCHC 35.6 (33-37) g/dL RDW Std Deviation 41.4 (39-50) fL RDW Coeff of Joseph 12.6 (11.5-14.5) % Plt Count 279 (140-350) 10*3/uL MPV 11.0 (7.4-12.2) FL Immature Gran % (Auto) 0.2 (0-5) % Neut % (Auto) 80.7 H (50-80) % Lymph % (Auto) 13.6 (10-50) % [place] % (Auto) 5.3 (5-15) % Eos % (Auto) 0 (0-8) % Baso % (Auto) 0.2 (0-1) % Immature Gran # (Auto) 0.02 10*3/UL Neut # (Auto) 7.40 10*3/UL Lymph # (Auto) 1.25 10*3/uL [place] # (Auto) 0.49 (0.3-0.8) 10*3/UL Eos # (Auto) 0 10*3/UL Baso # (Auto) 0.02 10*3/UL WBC Morphology Comment Normal morphology (NORM) Plt Morphology Comment Normal morphology (NORM) RBC Morph Comment Normal morphology (NORM) D-Dimer 1.39 H (0.00-0.59) mg/L Sodium (135-145) meq/L Potassium (3.8-5.2) meq/L Chloride (98-112) meq/L Carbon Dioxide (23-33) meq/L Anion Gap (5-20) BUN (7-22) mg/dL Creatinine (0.50-1.20) mg/dL BUN/Creatinine Ratio (6-20) Glucose (78-110) mg/dL Calculated Osmolality (267-292) mOsm/kg Lactic Acid 2.6 H (0.70-2.10) MMOL/L Calcium (8.7-10.7) mg/dL Magnesium (1.6-2.4) mg/dL Total Bilirubin (0.3-1.2) mg/dL AST (8-39) IU/L ALT (9-52) IU/L Alkaline Phosphatase (38-126) IU/L Total Creatine Kinase (30-136) IU/L Troponin I (< 0.040) ng/mL C-Reactive Protein (0.0-0.9) mg/dL NT-Pro-B Natriuret Pep (0-450) PG/ML Total Protein (6.1-8.0) g/dL Albumin (3.5-4.8) g/dL Globulin (2.50-4.10) g/dL Albumin/Globulin Ratio (1.3-2.0) mg/g TSH (0.2700-4.2000) uIU/mL Free T4 (0.93-1.71) ng/dL Ur Collection Type Urine Color (Y) Urine Clarity (CLEAR) Urine pH (5.0-8.5) Ur Specific [place] (1.005-1.030) Urine Protein (NEG) mg/dl Urine Glucose (UA) (NEG) mg/dL Urine Ketones (NEG) Urine Occult Blood (NEG) Urine Nitrate (NEG) Urine Bilirubin (NEG) Urine Urobilinogen (0.2) EU/dL Ur Leukocyte Esterase (NEG) Urine RBC (NONE) /hpf Urine WBC (NONE) Ur Squamous Epith Cells (NONE) Ur Renal Epithelial Cell (NONE) Urine Crystals Urine Bacteria (NONE) Urine Casts (NONE) Urine Mucus (NONE) Urine Trichomonas (NONE) Urine Yeast (NONE) Ur Culture Indicated? 12/10/17 12/11/17 12/11/17 Range/Units 18:00 04:11 04:11 WBC 10.88 H (4.8-10.8) 10^3/uL RBC 4.21 (4.20-5.40) 10^6/uL Hgb 13.5 (12.0-16.0) g/dL Hct 38.9 (37.0-47.0) % MCV 92.4 (81-99) FL MCH 32.1 H (27-31) PG MCHC 34.7 (33-37) g/dL RDW Std Deviation 41.9 (39-50) fL RDW Coeff of [place] 12.8 (11.5-14.5) % Plt Count 244 (140-350) 10*3/uL MPV 10.8 (7.4-12.2) FL Immature Gran % (Auto) 0.1 (0-5) % Neut % (Auto) 69.3 (50-80) % Lymph % (Auto) 18.6 (10-50) % [place] % (Auto) 11.2 (5-15) % Eos % (Auto) 0.6 (0-8) % Baso % (Auto) 0.2 (0-1) % Immature Gran # (Auto) 0.01 10*3/UL Neut # (Auto) 7.55 10*3/UL Lymph # (Auto) 2.02 10*3/uL [place] # (Auto) 1.22 H (0.3-0.8) 10*3/UL Eos # (Auto) 0.06 10*3/UL Baso # (Auto) 0.02 10*3/UL WBC Morphology Comment Normal morphology (NORM) Plt Morphology Comment Normal morphology (NORM) RBC Morph Comment Normal morphology (NORM) D-Dimer (0.00-0.59) mg/L Sodium 132 L (135-145) meq/L Potassium 3.3 L (3.8-5.2) meq/L Chloride 100 (98-112) meq/L Carbon Dioxide 23 (23-33) meq/L Anion Gap 9 (5-20) BUN 16 (7-22) mg/dL Creatinine 1.0 (0.50-1.20) mg/dL BUN/Creatinine Ratio 16.00 (6-20) Glucose 122 H (78-110) mg/dL Calculated Osmolality 275.0 (267-292) mOsm/kg Lactic Acid (0.70-2.10) MMOL/L Calcium 8.6 L (8.7-10.7) mg/dL Magnesium (1.6-2.4) mg/dL Total Bilirubin 0.4 D (0.3-1.2) mg/dL AST 29 (8-39) IU/L ALT 30 (9-52) IU/L Alkaline Phosphatase 73 (38-126) IU/L Total Creatine Kinase (30-136) IU/L Troponin I (< 0.040) ng/mL C-Reactive Protein (0.0-0.9) mg/dL NT-Pro-B Natriuret Pep (0-450) PG/ML Total Protein 6.7 (6.1-8.0) g/dL Albumin 3.6 (3.5-4.8) g/dL Globulin 3.1 (2.50-4.10) g/dL Albumin/Globulin Ratio 1.10 L (1.3-2.0) mg/g TSH (0.2700-4.2000) uIU/mL Free T4 (0.93-1.71) ng/dL Ur Collection Type Cath specimen Urine Color Yellow (Y) Urine Clarity Clear (CLEAR) Urine pH 8.0 (5.0-8.5) Ur Specific [place] 1.025 (1.005-1.030) Urine Protein >300 A (NEG) mg/dl Urine Glucose (UA) 100 (NEG) mg/dL Urine Ketones 40 (NEG) Urine Occult Blood Small H (NEG) Urine Nitrate Negative (NEG) Urine Bilirubin Negative (NEG) Urine Urobilinogen 0.2 (0.2) EU/dL Ur Leukocyte Esterase Negative (NEG) Urine RBC 1-3 (NONE) /hpf Urine WBC 4-8 H (NONE) Ur Squamous Epith Cells Many (NONE) Ur Renal Epithelial Cell Moderate (NONE) Urine Crystals None Urine Bacteria Rare (NONE) Urine Casts None (NONE) Urine Mucus Many (NONE) Urine Trichomonas None (NONE) Urine Yeast None (NONE) Ur Culture Indicated? Culture not set 12/11/17 12/11/17 Range/Units 04:11 04:11 WBC (4.8-10.8) 10^3/uL RBC (4.20-5.40) 10^6/uL Hgb (12.0-16.0) g/dL Hct (37.0-47.0) % MCV (81-99) FL MCH (27-31) PG MCHC (33-37) g/dL RDW Std Deviation (39-50) fL RDW Coeff of Joseph (11.5-14.5) % Plt Count (140-350) 10*3/uL MPV (7.4-12.2) FL Immature Gran % (Auto) (0-5) % Neut % (Auto) (50-80) % Lymph % (Auto) (10-50) % [place] % (Auto) (5-15) % Eos % (Auto) (0-8) % Baso % (Auto) (0-1) % Immature Gran # (Auto) 10*3/UL Neut # (Auto) 10*3/UL Lymph # (Auto) 10*3/uL [place] # (Auto) (0.3-0.8) 10*3/UL Eos # (Auto) 10*3/UL Baso # (Auto) 10*3/UL WBC Morphology Comment (NORM) Plt Morphology Comment (NORM) RBC Morph Comment (NORM) D-Dimer (0.00-0.59) mg/L Sodium (135-145) meq/L Potassium (3.8-5.2) meq/L Chloride (98-112) meq/L Carbon Dioxide (23-33) meq/L Anion Gap (5-20) BUN (7-22) mg/dL Creatinine (0.50-1.20) mg/dL BUN/Creatinine Ratio (6-20) Glucose (78-110) mg/dL Calculated Osmolality (267-292) mOsm/kg Lactic Acid 1.1 (0.70-2.10) MMOL/L Calcium (8.7-10.7) mg/dL Magnesium (1.6-2.4) mg/dL Total Bilirubin (0.3-1.2) mg/dL AST (8-39) IU/L ALT (9-52) IU/L Alkaline Phosphatase (38-126) IU/L Total Creatine Kinase (30-136) IU/L Troponin I 0.081 H (< 0.040) ng/mL C-Reactive Protein (0.0-0.9) mg/dL NT-Pro-B Natriuret Pep (0-450) PG/ML Total Protein (6.1-8.0) g/dL Albumin (3.5-4.8) g/dL Globulin (2.50-4.10) g/dL Albumin/Globulin Ratio (1.3-2.0) mg/g TSH (0.2700-4.2000) uIU/mL Free T4 (0.93-1.71) ng/dL Ur Collection Type Urine Color (Y) Urine Clarity (CLEAR) Urine pH (5.0-8.5) Ur Specific [place] (1.005-1.030) Urine Protein (NEG) mg/dl Urine Glucose (UA) (NEG) mg/dL Urine Ketones (NEG) Urine Occult Blood (NEG) Urine Nitrate (NEG) Urine Bilirubin (NEG) Urine Urobilinogen (0.2) EU/dL Ur Leukocyte Esterase (NEG) Urine RBC (NONE) /hpf Urine WBC (NONE) Ur Squamous Epith Cells (NONE) Ur Renal Epithelial Cell (NONE) Urine Crystals Urine Bacteria (NONE) Urine Casts (NONE) Urine Mucus (NONE) Urine Trichomonas (NONE) Urine Yeast (NONE) Ur Culture Indicated? Discharge instruction Diet regular Activity bedrest Medications Active Medications Acetaminophen (Tylenol) 650 mg PO Q6H PRN PRN Reason: Pain or Fever Apixaban (Eliquis) 2.5 mg PO BID [facility] Last Admin: 12/10/17 21:37 Dose: 2.5 mg Aspirin (Aspirin Ec) 81 mg PO DAILY [facility] Calcium Carbonate (Tums) 1 - 2 tab PO Q6H PRN PRN Reason: Heartburn Cholecalciferol (Vitamin D3) 2,000 iu PO DAILY [facility] Docusate Sodium (Colace) 100 mg PO BID PRN PRN Reason: Constipation Sodium Chloride (Normal Saline 0.9%) 25 mls @ 200 mls/hr IV .Post Infusion PRN PRN Reason: No Primary IV for Flush ONLY Potassium Chloride/Sodium Chloride (Pot Chl 20meq + Ns) 1,000 mls @ 30 mls/hr PRIMARY IV .Q24H [facility] Last Admin: 12/10/17 21:37 Dose: 50 mls/hr Ceftriaxone Sodium 1 gm/ (Sodium Chloride) 100 mls @ 200 mls/hr IV Q24H [facility] Last Admin: 12/10/17 23:01 Dose: 200 mls/hr Diltiazem HCl 125 mg/ Sodium (Chloride) 125 mls @ 5 mls/hr IV .TITRATE MED; Protocol Last Titration: 12/11/17 07:13 Dose: 10 mg/hr, 10 mls/hr Lidocaine HCl (Lidocaine Buffered Inj) 0.5 ml SUBD ONCE PRN PRN Reason: IV Starts Non-Formulary Medication (Rosuvastatin Calcium [Rosuvastatin Calcium]) 5 mg PO DAILY [facility] Omeprazole (Prilosec) 20 mg PO AC BK MED Ondansetron HCl (Zofran Inj) 4 mg IVP Q4H PRN PRN Reason: NAUSEA / VOMITING Last Admin: 12/11/17 06:04 Dose: 4 mg Potassium Chloride (Klor-Con) 20 meq PO BID [facility] Last Admin: 12/11/17 07:39 Dose: 20 meq Follow-up per Dr. Browne was discharged Condition at transfer stable for transfer Exam - Vitals Vital Signs: Vital Signs Temperature 99.1 F Temperature Source Temporal Artery Scan Pulse Rate [Apical] 129 Pulse Rate [Telemetry] 128 Pulse Rate [Pulse Oximeter] 150 Pulse Rate 160 Respiratory Rate 24 Blood Pressure [right AC] 148/96 Blood Pressure [Right Calf] 184/108 Blood Pressure [Left Arm] 111/94 Blood Pressure 106/74 Pulse Ox 99 Oxygen Flow Rate 2 Oxygen Delivery Method Nasal Cannula Height 5 ft 6 in Weight 140 lb - General Additional General Exam Details: Patient does not look well - Head Head Exam: Normal Inspection - Eye Eye Exam: POSITIVE: Normal Appearance - ENT ENT Exam: POSITIVE: Normal Exam - Neck Neck Exam: Normal Inspection - Respiratory Respiratory Exam: POSITIVE: Clear to Auscultation - Bilaterally - Cardiovascular Cardiovascular Exam: POSITIVE: Tachycardia - GI/Abdominal GI/Abdominal Exam: POSITIVE: Normal Bowel Sounds, Non Tender, Non Distended, Soft, No Organomegaly - Rectal Rectal Exam: POSITIVE: Deferred - External Exam: POSITIVE: Deferred Exam: POSITIVE: Deferred - Extremities Extremities Exam: POSITIVE: Normal Inspection - Back Back Exam: POSITIVE: Normal Inspection - Neurological Neurological Exam: POSITIVE: Alert, Oriented x 3, CN II-XII Intact, Speech Intact / Clear - Psychiatric Psychiatric Exam: POSITIVE: Flat Affect Patient Problems - Patient Problem List (1) Atrial fibrillation with rapid ventricular response Status: Acute Comment: Cardizem drip, anticoagulation with a eliquis, apparently this is her first episode was started today her chest to scores is greater than 2 Code(s): I48.91 - Unspecified atrial fibrillation Category: Medical (2) Dehydration Status: Acute Code(s): E86.0 - Dehydration Category: Medical (3) Iatrogenic hyperthyroidism Status: Acute Code(s): E05.80 - Other thyrotoxicosis without thyrotoxic crisis or storm Category: Medical (4) Confusion Status: Acute Code(s): R41.0 - Disorientation, unspecified Category: Medical (5) Abnormal finding on urinalysis Status: Acute Code(s): R82.90 - Unspecified abnormal findings in urine Category: Medical
[2017-12-11] MEDS ORDERED: Sodium Chloride 0.9% 100 ML IV ONE (07:55)
[2017-12-11] MEDS ORDERED: LIDOCAINE HCL 2 % 10 ML JELLY URO-JECT TOPICAL PRN (08:24)
[2017-12-11] MEDS ORDERED: ASPIRIN EC 81 MG TABLET PO SCH (09:00)
[2017-12-11] MEDS ORDERED: POTASSIUM CHLORIDE 20 MEQ TAB PO SCH (09:00)
[2017-12-11] MEDS ORDERED: CHOLECALCIFEROL 1000 IU TABLET PO SCH (09:00)
--- NOTE | 2017-12-12 17:56 | EKG ---
[address] [place] [address] Measurements Intervals [place] Rate: 130 P: VA: 0 QRS: -4 QRSD: 101 T: -48 QT: 343 QTc: 420 Interpretive Statements ATRIAL FLUTTER/TACHYCARDIA WITH RAPID VENTRICULAR RESPONSE MINIMAL VOLTAGE CRITERIA FOR LVH, CONSIDER NORMAL VARIANT [MEETS CRITERIA IN ONE OF: R(aVL), S (V1), R (V5), R(V5/V6)+S(V1)] NONSPECIFIC ST & T-WAVE ABNORMALITY ABNORMAL RHYTHM ECG Compared to ECG 12/10/2017 16:54:34 T-wave abnormality now present Atrial fibrillation no longer present Electronically Signed On 12-14-17 08:12:53 MDT by Darrius Shelton MD [email or web address]
== END 2017-12-11 08:40 | disposition short-term general hospital (02) | DRG 310 ==
LOC: ER 16:41 → MED/SURG 20:17
PROVIDERS: ADMIT Internal Medicine; ATTEND Internal Medicine

== ENCOUNTER 2018-06-26 15:46 | Inpatient (IN) ==
[2018-06-26] MEDS ORDERED: Sodium Chloride 0.9% 1,000 ML PRIMARY IV ONE (16:16)
[2018-06-26 16:56] LABS: Hematocrit [HCT] 39.7 % (37.0-47.0); Hemoglobin [HGB] 13.7 g/dL (12.0-16.0); MEAN CORPUSCULAR HEMOGLOBIN 32.7 PG (27-31); MEAN CORPUSCULAR HGB CONC 34.5 g/dL (33-37); MEAN CORPUSCULAR VOLUME 94.7 FL (81-99); RED BLOOD COUNT 4.19 10^6/uL (4.20-5.40)
[2018-06-26 17:02] LABS: BILIRUBIN,URINE NEGATIVE (NEG); CLARITY,URINE CLOUDY (CLEAR); COLOR,URINE YELLOW (Y); GLUCOSE, URINE (UA) NEGATIVE (NEG); OCCULT BLOOD,URINE MODERATE (NEG); PROTEIN,URINE 30 mg/dl (NEG)
[2018-06-26 17:05] LABS: URINE SAMPLE TYPE CATH SPECIMEN
[2018-06-26 17:06] LABS: BLOOD UREA NITROGEN 21 mg/dL (7-22); SERUM ALBUMIN 4.1 g/dL (3.5-4.8)
[2018-06-26 17:06] LABS: WBC,URINE >100
[2018-06-26 17:14] LABS: VENOUS PH 7.39 (7.32-7.42)
[2018-06-26 17:26] LABS: BAND NEUTROPHILS % 0 % (0-10); BASOPHILS % (MANUAL) 0 % (0-1); EOSINOPHILS % (MANUAL) 6 % (0-8); METAMYELOCYTES % 0 %; MONOCYTES % (MANUAL) 13 % (0-12); MYELOCYTES % 0 %; NEUTROPHILS % (MANUAL) 57 % (50-80); PLATELET MORPHOLOGY COMMENT NORMAL MORPHOLOGY (NORM); PROMYELOCYTES % 0 %; RBC MORPHOLOGY COMMENT NORMAL MORPHOLOGY (NORM); WBC MORPHOLOGY COMMENT NORMAL MORPHOLOGY (NORM)
--- NOTE | 2018-06-26 18:08 | DI ---
CT HEAD SCAN WITHOUT IV CONTRAST, 06/26/2018 4:16 PM : Clinical History: Short symptoms. Previous Exam: 12/10/2017. Technique: Performed from the foramen magnum to vertex without IV contrast. Contrast Volume: None. 4th Ventricle: Normal. 3rd Ventricle: Mildly dilated, but normal for age. Lateral Ventricles: Mildly dilated, but normal for age. Sella: Normal size and normal pituitary gland. Cerebrum: Normal. No evidence of an acute intracranial hemorrhagic focus or acute bland infarct. Mult iple punctate periventricular white matter lucencies bilaterally extend into the watershed territory, consistent with small vessel ischemic disease. This amount of ischemic disease is appropriate for th e patient's age. Cerebellum: Normal. No cerebellopontine angle mass. Normal cerebellar tonsillar position. Brainstem: Normal. Atrophy: Moderate cerebellar and cerebral atrophy. Extracerebral Mantles/Midline Shift: No extracerebral mantle or dural lesion. No midline shift. Sinuses: Normal. Skull: Intact. READIN. No evidence of an acute intracranial hemorrhagic focus or of an acute bland infarct. 2. Small vessel ischemic disease. 3. Moderate cerebellar and cerebral atrophy. 4. There has been no significant interval change.
--- NOTE | 2018-06-26 18:51 | PDOC ---
General Adult HPI - General Chief Complaint: Altered Mental Status Stated Complaint: confusion Date Seen by Provider: 06/26/18 Time Seen by Provider: 16:00 Source: POSITIVE: Patient Exam Limitations: POSITIVE: No limitations Nurse's Notes Reviewed & Considered: Yes - History of Present Illness Initial Comment: The patient is an 88-year-old female who is brought to the emergency room by 2 of her daughters. The patient is presently living with one of her daughters and has done so for the past 2 months ever since she sustained a fracture to her right ankle after falling on some ice. One of the daughters report that she was visiting with the patient 2 days ago and the patient had an episode of "not putting her words together properly, and making no sense". This episode lasted about 5 minutes, and the patient seemed normal thereafter, except the daughter reports that the patient has appeared to be "weak and tired. "Today the patient was talking on the telephone in the presence of one of her daughters, and the daughter reports that the patient had an episode of "not talking right and talking so you cannot understand her ". Reportedly this episode lasted about 20 minutes. Patient denies any head, chest or abdominal pain. The patient was living alone until she fractured her ankle, and has been living with one of her daughters since. Patient has a history of atrial fibrillation and she was electrically cardioverted in [place] in November. She also has a history of having had a bovine cardiac valve replacement, probably her aortic valve. She is on [place]. Patient has a history of hypokalemia, hypertension and hypercholesterolemia. Upon presentation to the emergency room the patient is asymptomatic. Have you received a tetanus shot in the past 10 years?: Yes Body Location Affected: REPORTS: Head, Other (Symptoms compatible with intermittent expressive aphasia) Timing: REPORTS: Abrupt, Intermittent, Improved Duration: Other (Her 2 recent episodes of expressive aphasia have reportedly lasted 5 and 20 minutes respectively.) Severity: Moderate Quality: REPORTS: Other (Patient denies any head or other pain.) Context: REPORTS: Other (Episodes occurred while visiting with one of her daughters, and while talking on the telephone, as above) Modifying Factors: improves with: Nothing Similar Symptoms Previously: Yes (one episode of lasting 5 minutes occurred 2 days ago) Recent Care Received: REPORTS: Denies Any Prior Injuries Related to Current Complaint?: No - Patient Home Medications Home Medications: Home Medications aspirin 81 mg tablet,delayed release 81 mg PO QDAY 11/02/17 apixaban 5 mg tablet 5 mg PO BID #60 tab 12/18/17 cholecalciferol (vitamin D3) 1,000 unit capsule 1,000 unit PO QDAY #30 cap 12/18/17 latanoprost (PF) 0.005 % eye drops 1 drp OP BID #7.5 ml 12/18/17 lisinopril 20 mg tablet 20 mg PO QDAY #30 tab 12/18/17 brimonidine-timolol 0.2 %-0.5 % eye drops 1 drp OP Q12H #10 ml 02/15/18 rosuvastatin 5 mg tablet 5 mg PO QDAY #90 tab 03/30/18 Metoprolol Succinate [Toprol Xl] 50 mg PO QDAY 05/19/18 levothyroxine 75 mcg tablet 75 mcg PO QDAY #90 tab 06/17/18 potassium chloride ER 10 mEq tablet,extended release 10 meq PO QDAY #90 tab 06/17/18 omeprazole 20 mg capsule,delayed release 20 mg PO QDAY #90 cap 06/25/18 - Patient Allergies Allergies/Adverse Reactions: Allergies Allergy/AdvReac Type Severity Reaction Status Date / Time Penicillins AdvReac Unknown UNSURE Verified 06/26/18 15:53 Past Medical History - heen HEENT History: Cataracts, Dentures/Partials Additional HEENT History: bottom Cardiovascular History: Hypertension, CHF, Arrhythmia, Valvular Heart Disease, Hyperlipidemia, Other (please comment) Additional Cardiovasular History: 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 Pulmonary Edema Respiratory History: Other (please comment) Additional Respiratory History: Hypoxia secondary to CHF Gastrointestinal History: GERD Genitourinary History: Denies History Additional Genitourinary History: UTI 12/12/2015 Endocrine History: Hypothyroidism Musculoskeletal History: Back Pain Prosthesis or Implant: No Neurological History: TIA Blood Disorders: Previous Bld Transfusions Additional Blood Disorders History: with heart surgery Psychiatric History: Denies History History of Sexually Transmitted Diseases: No Female Reproductive History: Hysterectomy Obstetrical History: Denies History Cancer History: Denies History In Past Year Been Physically Harmed or Verbally Threatened: No History of MDRO: No History of Other Communicable Diseases: No Tobacco Use: Never Smoker Alcohol Use: Occasionally Type of alcohol normally used: Beer In the Past 12 Months, Have Used or Abuse Any Substance: None Previous Surgical History: Yes Type / Date of Surgery: hysterectomy/ open heart/ CATARACT EXT/Tubal/Breast biopsy/Mitral valve repair/Aortic valve replacement Anesthesia Reactions: No Malignant Hyperthermia: No Significant Family History: Cancer Past Medical History Reviewed: Reviewed - No Changes ROS - Limitations ROS Limitations: No Limitations Constitution: REPORTS: Denies Symptoms Cardiovascular: REPORTS: Denies Cardiac Symptoms Respiratory: REPORTS: Denies Resp Symptoms Neurological: REPORTS: Other (Transient expressive aphasia 2, as above) Gastrointestinal: REPORTS: Denies GI Symptoms Endocrine: REPORTS: Denies Symptoms Musculoskeletal: REPORTS: Denies MS Symptoms Genitourinary: REPORTS: Denies Symptoms Eyes: REPORTS: Denies Symptoms ENT: REPORTS: Denies Symptoms Skin: REPORTS: Denies Skin Symptoms Lympathic: REPORTS: Denies Lympathic Symptoms Immunologic: POSITIVE: Denies Symptoms Psychiatric: POSITIVE: Denies Psych Symptoms General Adult Exam - General Appearance General Appearance: POSITIVE: Alert, Cooperative, No Acute Distress, No Evidence of Trauma, Other (Confused to President) - HEENT HEENT: POSITIVE: Head Inspection Nml, Eyes Inspection Nml, Ears Inspection Nml, Nose Inspection Nml, Oral/Dental Inspect. Nml, Pharynx Inspect. Nml, PERRL, EOMI - Pupils Pupil Size: 3 mm: Bilateral (PERRL) - Neck Neck: POSITIVE: Normal Inspection, Thyroid Normal - Respiratory Respiratory: POSITIVE: No Respiratory Distress, Breath Sounds Normal, Chest Non- Tender - Cardiovascular Cardiovascular: POSITIVE: Regular Rate & Rhythm, No Murmur, No Gallop, PMI Normal Peripheral Pulses: Radial (R): 2+, Radial (L): 2+ - Abdomen Abdomen: Soft: (All Quadrants), Normal Bowel Sounds: (All Quadrants), Denies Tenderness: (All Quadrants), No Splenomegaly: (All Quadrants), No Hepatomegaly: (All Quadrants), No Guarding: (All Quadrants), No Rebound: (All Quadrants), No Palpable Pulse: (All Quadrants), No Palpabale Mass: (All Quadrants), No Distention: (All Quadrants), No Rigidity: (All Quadrants) - Back Back: POSITIVE: Normal Inspection. 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 Normal As Tested, Motor Normal, Sensation Normal General Adult Progress - Results Reviewed by me Xrays/CTs/US Reviewed by me: Yes Discussed with Radiologist: Yes Radiology Findings: CT scan of head without contrast shows no acute changes; reportedly unchanged from November 2017 Lab Results Reviewed by Me: Yes (catheter urinalysis compatible with urinary tract infection) Lab Results:: Laboratory Results 06/26/18 06/26/18 06/26/18 16:45 16:45 16:45 WBC 5.87 RBC 4.19 L Hgb 13.7 Hct 39.7 MCV 94.7 MCH 32.7 H MCHC 34.5 RDW Std Deviation 43.0 RDW Coeff of Joseph 12.7 Plt Count 258 MPV 10.0 Neutrophils % (Manual) 57 Band Neutrophils % 0 Lymphocytes % (Manual) 24 Monocytes % (Manual) 13 H Eosinophils % (Manual) 6 Basophils % (Manual) 0 Metamyelocytes % 0 Myelocytes % 0 Promyelocytes % 0 Blast Cells 0 WBC Morphology Comment Normal morphology Plt Morphology Comment Normal morphology RBC Morph Comment Normal morphology PT 13.4 H INR 1.34 VBG pH VBG pCO2 VBG HCO3 VBG Base Excess Sodium 138 Potassium 4.0 Chloride 103 Carbon Dioxide 24 Anion Gap 11 BUN 21 Creatinine 1.5 H Estimated GFR Animated Cartoons Painter BUN/Creatinine Ratio 14.00 Glucose 118 H Calculated Osmolality 289.0 Lactic Acid Calcium 9.2 Total Bilirubin 0.5 AST 26 ALT 16 Alkaline Phosphatase 80 CK-MB (CK-2) Troponin I C-Reactive Protein 0.8 Total Protein 7.5 Albumin 4.1 Globulin 3.4 Albumin/Globulin Ratio 1.20 L Ur Collection Type Urine Color Urine Clarity Urine pH Ur Specific [place] Urine Protein Urine Glucose (UA) Urine Ketones Urine Occult Blood Urine Nitrate Urine Bilirubin Urine Urobilinogen Ur Leukocyte Esterase Urine RBC Urine WBC Ur Squamous Epith Cells Ur Renal Epithelial Cell Urine Crystals Urine Bacteria Urine Casts Urine Mucus Urine Trichomonas Urine Yeast Ur Culture Indicated? 06/26/18 06/26/18 06/26/18 16:45 16:45 16:57 WBC RBC Hgb Hct MCV MCH MCHC RDW Std Deviation RDW Coeff of Joseph Plt Count MPV Neutrophils % (Manual) Band Neutrophils % Lymphocytes % (Manual) Monocytes % (Manual) Eosinophils % (Manual) Basophils % (Manual) Metamyelocytes % Myelocytes % Promyelocytes % Blast Cells WBC Morphology Comment Plt Morphology Comment RBC Morph Comment PT INR VBG pH VBG pCO2 VBG HCO3 VBG Base Excess Sodium Potassium Chloride Carbon Dioxide Anion Gap BUN Creatinine Estimated GFR BUN/Creatinine Ratio Glucose Calculated Osmolality Lactic Acid 1.1 Calcium Total Bilirubin AST ALT Alkaline Phosphatase CK-MB (CK-2) 0.64 Troponin I < 0.012 C-Reactive Protein Total Protein Albumin Globulin Albumin/Globulin Ratio Ur Collection Type Cath specimen Urine Color Yellow Urine Clarity Cloudy A Urine pH 6.0 Ur Specific [place] 1.015 Urine Protein 30 A Urine Glucose (UA) Negative Urine Ketones Negative Urine Occult Blood Moderate H Urine Nitrate Positive A Urine Bilirubin Negative Urine Urobilinogen 1.0 Ur Leukocyte Esterase Large Urine RBC Not Reportable Urine WBC >100 H Ur Squamous Epith Cells Not Reportable Ur Renal Epithelial Cell Not Reportable Urine Crystals Not Reportable Urine Bacteria Not Reportable Urine Casts Not Reportable Urine Mucus Not Reportable Urine Trichomonas Not Reportable Urine Yeast Not Reportable Ur Culture Indicated? Culture set 06/26/18 16:59 WBC RBC Hgb Hct MCV MCH MCHC RDW Std Deviation RDW Coeff of Joseph Plt Count MPV Neutrophils % (Manual) Band Neutrophils % Lymphocytes % (Manual) Monocytes % (Manual) Eosinophils % (Manual) Basophils % (Manual) Metamyelocytes % Myelocytes % Promyelocytes % Blast Cells WBC Morphology Comment Plt Morphology Comment RBC Morph Comment PT INR VBG pH 7.39 VBG pCO2 41 L VBG HCO3 25 VBG Base Excess 0 Sodium Potassium Chloride Carbon Dioxide Anion Gap BUN Creatinine Estimated GFR BUN/Creatinine Ratio Glucose Calculated Osmolality Lactic Acid Calcium Total Bilirubin AST ALT Alkaline Phosphatase CK-MB (CK-2) Troponin I C-Reactive Protein Total Protein Albumin Globulin Albumin/Globulin Ratio Ur Collection Type Urine Color Urine Clarity Urine pH Ur Specific [place] Urine Protein Urine Glucose (UA) Urine Ketones Urine Occult Blood Urine Nitrate Urine Bilirubin Urine Urobilinogen Ur Leukocyte Esterase Urine RBC Urine WBC Ur Squamous Epith Cells Ur Renal Epithelial Cell Urine Crystals Urine Bacteria Urine Casts Urine Mucus Urine Trichomonas Urine Yeast Ur Culture Indicated? CBC and BMP: 06/26/18 16:45 06/26/18 16:45 EKG Interpreted/Reviewed By Me:: Yes (normal sinus rhythm; T-wave inversions leads one to 3 aVL aVF and V4 V5 and) EKG Interpretation:: POSITIVE: Normal Sinus Rhythm, Normal Rate, Normal Intervals, Normal [place], Normal QRS. NEGATIVE: Normal ST/T (T-wave inversions in leads 1, 2, 3, aVL, aVF, V4, V5 and V6) - Patient's Progress Pain Medication Addressed: POSITIVE: Not Applicable School/Work Release Addressed: POSITIVE: Not Applicable Re-Examine Time: 18:20 Re-Examine Comment: The patient and HER-2 daughters were advised of the laboratory results and results of electrocardiogram and CT scan. I believe the patient does have a urinary tract infection which might be contributing to her symptoms of fatigue and lack of energy. She may also be having transient ischemic attacks. Case discussed with hospitalist, Dr. Molina, and patient is admitted to his care for further evaluation and treatment. Status: POSITIVE: Unchanged, Re-Examined Antibiotics Given: No - Consult Consult (If Yes, Name of Consulting MD & Time Called): Yes (Dr. Molina, hospitalist, [id number]) Consulting MD will see pt:: POSITIVE: [facility] Admit Counseled: POSITIVE: Patient, Family, RE: Lab Results, RE: Radiology Results, RE: DX, RE: Need for F/U Patient Care Time - Estimated PCT Patient Care Time (In Minutes): 50 Vital Signs - Recent Vital Signs Vital Signs: Vital Signs (Last 8 hours) Temp Pulse Pulse Resp BP Pulse Ox 06/26/18 16:27 76 06/26/18 15:46 97.2 F 76 18 132/73 94 - VS Reviewed Vital Signs Reviewed: Yes Discharge Clinical Impression: Transient ischemic attack Urinary tract infection Qualifiers: Urinary tract infection type: acute cystitis Hematuria presence: without hematuria Qualified Code(s): N30.00 - Acute cystitis without hematuria Discharge Disposition: Admit to Inpatient Condition: Stable Follow Up With: MYA ARCHER [Primary Care Provider] - Date Decision to Admit to Inpatient: 06/26/18 Time Decision to Admit to Inpatient: 18:20
--- NOTE | 2018-06-26 18:59 | PDOC ---
HPI - History of Present Illness Date of Service: 06/26/18 Time of Service: 19:30 Chief Complaint: Confusion today History of Present Illness: This is a 88 years old female with medical history significant for history of atrial fibrillation status post Maze procedure, history of aortic valve replacement, history of mitral clipping procedure, hypertension, hypercholesterolemia who was brought to the hospital by her daughters because they noticed confusion. She was not making sense. It's Sounded like it came in episodes one lasted few minutes and the other one lasted for about 20 minutes. She was generally weak but no focal weakness. The patient herself doesn't know why she is in the hospital. Because of all these symptoms she was brought to the hospital for evaluation. In the ER a CT showed no changes, UA was abnormal suggestive of urinary tract infection and hence the admission. The patient herself is denying nausea, vomiting, abdominal pain. Apparently about few weeks ago she was started on Vesicare for urinary frequency. Past Medical History Medical History: 1. Hypertension. 2. GERD. 3. hypothyroidism. 4. 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 5. History of atr ial fibrillation. 6. History of mitral valve clipping. 7. Admission in September 2017 for TIA. 8. History of hypercholesterolemia. 9. Admission November 2017 for uncontrolled atrial flutter she was transferred to [facility] and she needed cardioversion. 10. Slipped on ice April 2018 that resulted in distal fibula fracture. Surgical History: 1. Hysterectomy. 2. Aortic valve replacement with Maze procedure for atrial fibrillation. 3. Status post mitral valve clipping Family History: Reviewed an Not Pertinent Past Social History: She does not smoke, does drink 2 beers a night, lives by herself. . She said she gets her lunch at the [employer]. Tobacco Use: Never Smoker In the Past 12 Months, Have Used or Abuse Any of the Following Substance: None Alcohol Use: Other (Drink 2 beers a night) Medication / Allergies Home Medications: Home Medications Medication Instructions Recorded Confirmed Type aspirin 81 mg tablet,delayed 81 mg PO QDAY 11/02/17 06/26/18 History release apixaban 5 mg tablet 5 mg PO BID #60 tab 12/18/17 06/26/18 Rx cholecalciferol (vitamin D3) 1,000 1,000 unit PO QDAY #30 cap 12/18/17 06/26/18 Rx unit capsule latanoprost (PF) 0.005 % eye drops 1 drp OP BID #7.5 ml 12/18/17 06/26/18 Rx lisinopril 20 mg tablet 20 mg PO QDAY #30 tab 12/18/17 06/26/18 Rx brimonidine-timolol 0.2 %-0.5 % 1 drp OP Q12H #10 ml 02/15/18 06/26/18 Rx eye drops rosuvastatin 5 mg tablet 5 mg PO QDAY #90 tab 03/30/18 06/26/18 Rx Metoprolol Succinate [Toprol Xl] 50 mg PO QDAY 05/19/18 06/17/18 History levothyroxine 75 mcg tablet 75 mcg PO QDAY #90 tab 06/17/18 06/26/18 Rx potassium chloride ER 10 mEq 10 meq PO QDAY #90 tab 06/17/18 06/26/18 Rx tablet,extended release solifenacin 5 mg tablet 5 mg Tablet#2 Samples 06/17/18 06/26/18 Sample omeprazole 20 mg capsule,delayed 20 mg PO QDAY #90 cap 06/25/18 06/26/18 Rx release Allergies/Adverse Reactions: Allergies Allergy/AdvReac Type Severity Reaction Status Date / Time Penicillins AdvReac Unknown UNSURE Verified 06/27/18 06:35 Review of Systems - Review of Systems All Systems: Reviewed & No Additional Complaints Except as Stated Exam - Vitals Vital Signs: Vital Signs Temperature 97.2 F Temperature Source Temporal Artery Scan Pulse Rate [Pulse Oximeter 76 Right] Pulse Rate 76 Respiratory Rate 18 Blood Pressure [Left Arm] 132/73 Pulse Ox 94 Oxygen Delivery Method Room Air Height 5 ft 4 in Weight 132 lb - General General Appearance: No Acute Distress, Cooperative - Head Head Exam: Normal Inspection - Eye Eye Exam: POSITIVE: Normal Appearance - ENT ENT Exam: POSITIVE: Normal Exam - Neck Neck Exam: Normal Inspection - Respiratory Respiratory Exam: POSITIVE: Clear to Auscultation - Bilaterally - Cardiovascular Cardiovascular Exam: POSITIVE: RRR, Systolic Murmur - GI/Abdominal GI/Abdominal Exam: POSITIVE: Normal Bowel Sounds, Non Tender, Non Distended, Soft, No Organomegaly - Rectal Rectal Exam: POSITIVE: Deferred - External Exam: POSITIVE: Deferred Exam: POSITIVE: Deferred - Extremities Additional Extremities Exam Details: No edema, right leg in a cast. - Back Back Exam: POSITIVE: Normal Inspection - Neurological Neurological Exam: POSITIVE: Alert, Oriented x 3, CN II-XII Intact, No Facial Droop, Speech Intact / Clear, Moves All Extremities Equally - Psychiatric Psychiatric Exam: POSITIVE: Normal Affect - Integumentary Integumentary Exam: POSITIVE: Normal Color Results - Labs CBC and BMP: 06/26/18 16:45 06/26/18 16:45 - Imaging Status: Report Reviewed by Me (CT head 1. No evidence of an acute intracranial hemorrhagic focus or of an acute bland infarct. 2. Small vessel ischemic disease. 3. Moderate cerebellar and cerebral atrophy. 4. There has been no significant interval change.) Assessment and Plan - Patient Problems (1) Urinary tract infection Current Visit: Yes Status: Acute Comment: I think her symptoms are due to urinary tract infection will start her on Rocephin and weight for culture result. Code(s): N39.0 - Urinary tract infection, site not specified Qualifiers: Urinary tract infection type: acute cystitis Hematuria presence: without hematuria Qualified Code(s): N30.00 - Acute cystitis without hematuria (2) Confusion Current Visit: No Status: Acute Comment: Likely secondary to the above. We'll see how things looked more than decide with a need to do an MRI before her tomorrow. Code(s): R41.0 - Disorientation, unspecified (3) Hypothyroidism Current Visit: No Status: Chronic Onset Date: 03/15/13 Comment: Same medications Code(s): E03.9 - Hypothyroidism, unspecified (4) History of atrial fibrillation Current Visit: No Status: Acute Comment: Continue eliquis and beta joan Code(s): Z86.79 - Personal history of other diseases of the circulatory system (5) Essential hypertension Current Visit: No Status: Chronic Onset Date: 05/06/11 Comment: Same medications Code(s): I10 - Essential (primary) hypertension
--- NOTE | 2018-06-26 19:23 | EKG ---
[address] [address] Measurements Intervals [place] Rate: 76 P: 64 VT: 151 QRS: 6 QRSD: 108 T: 230 QT: 450 QTc: 480 Interpretive Statements SINUS RHYTHM WITH SINUS ARRHYTHMIA BORDERLINE CRITERIA FOR LEFT VENTRICULAR HYPERTROPHY AND ST-T CHANGE POSSIBLE INFEROLATERAL ISCHEMIA Compared to ECG 12/11/2017 06:30:46 ST (T wave) deviation now present Atrial flutter no longer present T-wave abnormality no longer present Electronically Signed On 06-27-18 15:52:21 MDT by David Krueger [email or web address]
[2018-06-26] MEDS ORDERED: ONDANSETRON 4 MG/2 ML VIAL IVP PRN (19:29)
[2018-06-26] MEDS ORDERED: LIDOCAINE W/ SODIUM BICARB 0.5 ML SYR SUBD PRN (19:29)
[2018-06-26] MEDS ORDERED: DOCUSATE 100 MG CAPSULE PO PRN (19:29)
[2018-06-26] MEDS ORDERED: CALCIUM CARBONATE 500 MG (TUMS) CHEWABLE TABLET PO PRN (19:29)
[2018-06-26] MEDS ORDERED: ACETAMINOPHEN 325 MG TABLET PO PRN (19:29)
[2018-06-26] MEDS: cefTRIAXone Inj 2 GM in Sodium Chloride 0.9% 100 ML IV SCH (19:56)
[2018-06-26] MEDS: Rosuvastatin Tab 20 MG TAB PO SCH (19:59)
[2018-06-26] MEDS: Apixaban 5 MG TABLET PO SCH (20:00)
[2018-06-27] MEDS ORDERED: LEVOTHYROXINE 75 MCG TABLET PO SCH (05:30)
[2018-06-27] MEDS: OMEPRAZOLE 20 MG CAPSULE PO SCH (07:06)
[2018-06-27] MEDS: METOPROLOL SUCCINATE 50 MG SR 24H TABLET PO SCH (08:59)
[2018-06-27] MEDS: LISINOPRIL 20 MG TABLET PO SCH (08:59)
[2018-06-27] MEDS: ASPIRIN EC 81 MG TABLET PO SCH (08:59)
[2018-06-27] MEDS: Apixaban 5 MG TABLET PO SCH ×2 (09:00→20:22)
--- NOTE | 2018-06-27 10:52 | PDOC(PROG) ---
Date of Service: 06/27/18 Time of Service: 10:30 Interval History: Subjective Patient was laying in bed does not appear in distress. Denying symptoms. She did not know the day, knew the month, she thought the year was 1899. When I asked her who brought her to the hospital she said her mother. She thinks her mother is still alive. When asked about her age she said 57. She knew her date of . Objective : Data - Labs CBC and BMP: 06/26/18 16:45 06/26/18 16:45 Objective : Exam - General General Appearance: No Acute Distress, Cooperative, Mild Distress - Head Head Exam: Normal Inspection - Eye Eye Exam: Normal Appearance - ENT ENT Exam: Normal Exam - Neck Neck Exam: Normal Inspection - Respiratory Respiratory Exam: Clear to Auscultation - Bilaterally - Cardiovascular Cardiovascular Exam: RRR, Systolic Murmur - GI/Abdominal GI/Abdominal Exam: Normal Bowel Sounds, Non Tender, Non Distended, Soft, No Organomegaly - Rectal Rectal Exam: Deferred - External Exam: Deferred - Extremities Extremities Exam: Normal Inspection - Back Back Exam: Normal Inspection - Neurological Neurological Exam: Alert, CN II-XII Intact, No Facial Droop, Speech Intact / Clear, Moves All Extremities Equally - Psychiatric Psychiatric Exam: Normal Affect - Integumentary Integumentary Exam: Normal Color Assessment and Plan - Patient Problems (1) Urinary tract infection Current Visit: Yes Status: Acute Comment: Continue current antibiotics until we have culture result. Code(s): N39.0 - Urinary tract infection, site not specified Qualifiers: Urinary tract infection type: acute cystitis Hematuria presence: without hematuria Qualified Code(s): N30.00 - Acute cystitis without hematuria (2) Confusion Current Visit: No Status: Acute Comment: This may be secondary to the above. I'm wondering whether there is underlying dementia, will ask PT and OT to assess her strength/balance in a ddition to MOCA. I think will order an MRI of her brain as she has a history of A. fib. Code(s): R41.0 - Disorientation, unspecified (3) Hypothyroidism Current Visit: No Status: Chronic Onset Date: 03/15/13 Comment: Same medications Code(s): E03.9 - Hypothyroidism, unspecified (4) History of atrial fibrillation Current Visit: No Status: Acute Comment: Continue eliquis Code(s): Z86.79 - Personal history of other diseases of the circulatory system (5) Essential hypertension Current Visit: No Status: Chronic Onset Date: 05/06/11 Comment: Same med Code(s): I10 - Essential (primary) hypertension
[2018-06-27] MEDS: cefTRIAXone Inj 2 GM in Sodium Chloride 0.9% 100 ML IV SCH (20:22)
[2018-06-27] MEDS: Rosuvastatin Tab 20 MG TAB PO SCH (20:22)
[2018-06-28 04:38] LABS: BLOOD UREA NITROGEN 18 mg/dL (7-22); BUN/CREATININE RATIO 13.84 (6-20)
[2018-06-28] MEDS: LEVOTHYROXINE 50 MCG TABLET PO SCH (05:17)
[2018-06-28] MEDS: LISINOPRIL 20 MG TABLET PO SCH (08:46)
[2018-06-28] MEDS: METOPROLOL SUCCINATE 50 MG SR 24H TABLET PO SCH (08:46)
[2018-06-28] MEDS: ASPIRIN EC 81 MG TABLET PO SCH (08:46)
[2018-06-28] MEDS: Apixaban 5 MG TABLET PO SCH ×2 (08:46→21:37)
[2018-06-28] MEDS: OMEPRAZOLE 20 MG CAPSULE PO SCH (08:46)
--- NOTE | 2018-06-28 08:55 | DI ---
MRI BRAIN SCAN WITHOUT IV CONTRAST, 06/28/2018 7:00 AM: Clinical History: Confusion. Prior Exam: 10/12/2017. Comparison Exam: CT head scan, 06/26/2018. Sequences: Sagittal T1; Axial ELIANA T2 and FLAIR. Axial diffusion weighted images with ADC mapping. 4th Ventricle: Normal. 3rd Ventricle: Mildly dilated, but normal for age. Lateral Ventricles: Moderately dilated but still within normal limits for her age. Sella: Normal size and normal pituitary gland. Cerebrum: No acute intracranial hemorrhagic focus or bland infarct. Multiple punctate periventricular white matter hyperintensities bilaterally extend into the watershed territory, consistent with small vessel ischemic disease. This amount of ischemic disease is appropriate for the patient's age. Cerebellum: Normal. No cerebellopontine angle mass. Cerebellar Tonsils: Normal position. Brainstem: Normal. Diffusion Weighted Imaging: Single 3 mm punctate hyperintensity in the posterior aspect of the left f rontal lobe in the centrum semiovale on the diffusion images. This finding is of uncertain significan ce. Atrophy: Moderate cerebellar and cerebral atrophy. Extracerebral Mantles/Midline Shift: No extracerebral mantle or dural lesion. No midline shift. Sinuses: Normal. Readin. No acute intracranial hemorrhagic focus. No acute bland infarct. 2. Extensive small vessel ischemic disease appropriate for the patient's age of 88 years. 3. Diffusion-weighted images show a small punctate hyperintensity in the left frontal lobe. ADC daya ing is normal. The significance of this single focus is uncertain. 4. Moderate cerebellar and cerebral atrophy.
--- NOTE | 2018-06-28 10:55 | PTI REPORT ---
Thank you for the referral of Sara Cortes Nisreenal. She was seen on 06/28/18 for an inpatient evaluation secondary to a UTI. SUBJECTIVE: The patient is an 88-year-old female. Per the patient, she has been in the hospital two days. The patient states that she fell approximately two weeks ago while slipping on the ice, which resulted in a broken foot and as a result has been casted. Initially she was unsure of which doctor she had been seeing. According to her past medical history, she fell on 05/19/2018 and was last seen by Dr. Arango on 06/16/2018 and is to have a follow up in two weeks. The patient states she used to live at home by herself in a multi-level home with several stairs; however, due to her daughter's concerns for her safety, she has now been living with her daughter in a ranch style home. She denies using oxygen at any time and denies any pain except in her back with prolonged walking. She states she has been walking without any use of any type of assistive device; although several people have tried to get her to use a walker or a crutch. PAST MEDICAL HISTORY: Past medical history can be found in the patient's medical record. OBJECTIVE FINDINGS: General observations: The patient is oriented to the year and the place; however, was not able to correctly identify the date or the day of the week. The patient presents with a cast on her right lower extremity following a distal fibular head fracture. The patient is able to sit at edge of bed unsupported for a prolonged period of time without any difficulty. Strength/Range of motion: Bilateral lower extremity range of motion is within functional limits. Bilateral lower extremity strength at best is at this time 3+/5 for the right lower extremity and 4-/5 for the left lower extremity. Please see occupational therapy evaluation for upper extremity strength and range of motion as well as specifics with the patient's mental clarity. Balance: Standing balance at best is fair minus, specifically due to the fact that she has a cast on that right lower extremity. Ambulation: The patient is able to ambulate greater than 100 feet initially with gait belt and hand hold assist; however, we did get her a front wheeled walker due to concerns with her safety and she only required tactile and verbal cues for direction and staying within the walker. Bed mobility/Transfers: The patient is able to perform bed mobility and sit to stand transfer with stand by assistance as well as verbal cues for safety. ASSESSMENT: Problem List: Decreased safety awareness Decreased strength Increased fall risk due to cast Physical Therapy Goals: To be met by discharge from inpatient: Patient will be able to perform all mobility and transfers with stand by assistance safely without use of verbal cues. Patient will be able to ambulate with appropriate assistive device greater than 300 feet for household and community ambulation in preparation for return home. Patient will increase right lower extremity strength to greater than 4-/5. TREATMENT PLAN: Patient will be seen B.I.D during the week and one time per day over the weekend as an inpatient to address the above goals and objectives. The therapist will contact Dr. Arango's office in regards to the patient being placed on inpatient status at this time. Occupational therapy will also perform cognitive tests. INITIAL TREATMENT: Treatment today consisted of the initial evaluation followed by ambulating with the patient greater than 100 feet initially with hand hold assist x1 and gait belt. The patient was issued the hospital's front wheeled walker. The patient states she has one at home, so one was not issued out to the patient. The therapist will contact Dr. Arango's office in regards to the patient's inpatient status at this time. Dr. Arango's last note stated that he wanted to have a two week follow up which will be June 30. ADRIEN
[2018-06-28] MEDS ORDERED: SULFAMETHOXAZOLE/TRIMETHOPRIM 800/160 MG TABLET PO ONE (13:43)
--- NOTE | 2018-06-28 13:44 | PDOC(PROG) ---
Date of Service: 06/28/18 Time of Service: 13:39 Interval History: Patient seen and evaluated earlier today. Discussed with daughter. No chest pain and no shortness breath. Patient confused about some details of recent past, but knew that she was staying with her daughter in relation to a right ankle fracture. MOCA evaluation pending. In speaking with the patient's daughter, the patient showing some signs and symptoms of dementia and they do not believe she is safe to live at home anymore. She will be likely living with the patient's daughter or assisted living post hospital stay. No nausea or vomiting. Objective : Data - Labs CBC and BMP: 06/26/18 16:45 06/28/18 04:14 Additional Lab Results: Laboratory Results 06/26/18 06/28/18 16:57 04:14 Sodium 139 Potassium 3.6 L Chloride 106 Carbon Dioxide 25 Anion Gap 8 BUN 18 Creatinine 1.3 H Estimated GFR Molecular Biology Director BUN/Creatinine Ratio 13.84 Glucose 101 Calculated Osmolality 289.0 Calcium 9.3 Ur Collection Type Cath specimen Urine Color Yellow Urine Clarity Cloudy A Urine pH 6.0 Ur Specific [place] 1.015 Urine Protein 30 A Urine Glucose (UA) Negative Urine Ketones Negative Urine Occult Blood Moderate H Urine Nitrate Positive A Urine Bilirubin Negative Urine Urobilinogen 1.0 Ur Leukocyte Esterase Large Urine WBC >100 H Ur Culture Indicated? Culture set Urine culture positive for Klebsiella pneumoniae Objective : Exam - General General Appearance: No Acute Distress, Cooperative Additional General Exam Details: Vital Signs - Last Taken Temperature 96.9 F 06/28/18 12:12 Pulse Rate 79 06/28/18 12:12 Respiratory Rate 12 06/28/18 12:12 Blood Pressure 138/84 06/28/18 12:12 Pulse Ox 93 06/28/18 12:12 - Eye Eye Exam: No Scleral Icterus - ENT ENT Exam: Mucous Membranes Moist - Neck Neck Exam: JVP is not Raised - Respiratory Respiratory Exam: Clear to Auscultation - Bilaterally, Breathing Non Labored - Cardiovascular Cardiovascular Exam: RRR, No Murmur, No Clicks, No Gallops, No Rubs, No JVD - GI/Abdominal GI/Abdominal Exam: Normal Bowel Sounds, Non Tender, Non Distended, Soft - Extremities Extremities Exam: No Clubbing Present, No Edema Present, No Cyanosis Present Additional Extremities Exam Details: Right ankle is casted. No swelling. Distal neurovascular are intact - Neurological Neurological Exam: Alert, No Facial Droop, Speech Intact / Clear, Moves All Extremities Equally, Altered (Oriented to person, place, but not necessarily to situation or time.) - Psychiatric Psychiatric Exam: Normal Affect, Normal Mood Assessment and Plan - Patient Problems (1) Urinary tract infection Current Visit: Yes Status: Acute Code(s): N39.0 - Urinary tract infection, site not specified Qualifiers: Urinary tract infection type: acute cystitis Hematuria presence: without hematuria Qualified Code(s): N30.00 - Acute cystitis without hematuria (2) Essential hypertension Current Visit: Yes Status: Chronic Onset Date: 05/06/11 Code(s): I10 - Essential (primary) hypertension (3) Hypothyroidism Current Visit: Yes Status: Chronic Onset Date: 03/15/13 Code(s): E03.9 - Hypothyroidism, unspecified Qualifiers: Hypothyroidism type: acquired Qualified Code(s): E03.9 - Hypothyroidism, unspecified (4) Dementia Current Visit: Yes Status: Acute Code(s): F03.90 - Unspecified dementia without behavioral disturbance (5) Atrial fibrillation Current Visit: Yes Status: Chronic Onset Date: 07/23/15 Code(s): I48.91 - Unspecified atrial fibrillation Qualifiers: Atrial fibrillation type: unspecified Qualified Code(s): I48.91 - Unspecified atrial fibrillation - Assessment / Plan Additional Assessment/Plan Details: Based on age and creatinine, I think the patient's Eliquis should probably be reduced to 2.5 mg by mouth twice a day. Stop Rocephin and start Bactrim. Complete 5 days of therapy for this urinary tract infection. PT and OT. I think the patient would benefit from swing bed, particularly in the setting of this cast for her right ankle. Plan above discussed with daughter and she agreed with treatment of urinary tract infection and continued PT and OT and a swing bed. Her daughter really does suggest that the patient probably has underlying dementia but we will see what the [facility] screening shows as well.
--- NOTE | 2018-06-28 15:33 | PT.PROG ---
Progress Note Progress Note: S. Patient stated that she is tired this afternoon however agreed to do some exercises with me. O. Patient ambulated 150 feet around the nurses station then performed seated exercises in the form of; long arc quads, marches, heel toe raises, ball squeezes, clam shells, resisted knee flexion all x 10 bilaterally, sit to stands x 10. Patient was left in bed with alarm and call light. A. Patient tolerated ambulation and exercise well, she was able to perform all exercises with no complaints of pain or problems.Patient has slight balance deficits walking with front wheeled walker. Patient would continue to benefit from skilled therapy to increase strength, endurance and safety. P. Continue POC.
--- NOTE | 2018-06-28 16:21 | OTI REPORT ---
Thank you for the referral of Sara Cortes Yanick. She was seen on 06/28/18 for an occupational therapy inpatient evaluation secondary to a UTI. SUBJECTIVE: The patient is an 88-year-old female who is being seen today secondary to having a UTI, confusion, hypothyroidism, and a-fib. She is status post a maze procedure. She stated that she had heart surgery approximately 2-3 years ago. The patient just recently fell on her right foot on the ice and is in a cast today. The patient has lived with her daughter over the last two months. She reports the house is on one level. PAST MEDICAL HISTORY: Past medical history can be found in the patient's medical record. OBJECTIVE FINDINGS: General observations: The patient was alert to the month and the year. She did not know the date of the day of the week. She continually repeated herself and asked why she was in the hospital. The therapist told her four different times that it was a UTI, but she continually forgot. The patient also thought that she was fine to get up and move around, when really she has a lot of balance difficulties. She appeared to be in denial or not processing her deficits very well. Bed mobility: The patient was able to come from supine to sit independently. Range of motion: While sitting edge of bed, we did assess her upper extremity range of motion. All is within functional limits for shoulders, elbows, and wrists. Strength: Shoulder strength was 4/5 for flexion/abduction bilaterally, elbow strength was 4+/5 for flexion/abduction bilaterally, and hand strength was 3+/5 bilaterally. Activities of daily living: The patient was having difficulty donning her cast shoe on the cast side and needed max assist for this. She was able to don her shoe on the left side independently, but with increased time. Transfers: The patient required min assist when transferring from sit to stand to keep her balance. While standing at sink, she needed min assist to keep her balance. Ambulation: The patient did well with the wheeled walker. Without the wheeled walker she was a high fall risk. ASSESSMENT: The patient would benefit from skilled occupational therapy to further assess her cognitive processing abilities. She did come into the hospital with some confusion and consistently demonstrated confusion throughout the evaluation this morning. The patient feels it would be appropriate to have a family meeting with the patient's daughter to go over safely concerns as the patient does have difficulty lifting her right leg completely with her cast and boot on in order to walk safely. Problem List: Decreased upper extremity strength Increased confusion Decreased balance Decreased ability to complete ADLs Short-Term Goals: To be met by discharge from inpatient: Patient will increase upper extremity strength to 4+/5 to complete functional activities and transfers independently. Patient will be able to dress lower and upper extremities independently. Patient will complete a MoCA and possibly a CPT in order to assess her cognitive functioning abilities. Long-Term Goals: To be met following discharge from inpatient: Patient will be discharged home, demonstrating safety and independence with all basic ADLs and functional transfers with 24-hour care from her daughter. TREATMENT PLAN: Patient will be seen B.I.D during the week and one time per day over the weekend as an inpatient to address the above goals and objectives. INITIAL TREATMENT: Treatment today consisted of the initial evaluation activities only. ADRIEN
[2018-06-28] MEDS: Rosuvastatin Tab 20 MG TAB PO SCH (21:37)
[2018-06-28] MEDS: SULFAMETHOXAZOLE/TRIMETHOPRIM 800/160 MG TABLET PO SCH (21:37)
[2018-06-29] MEDS: LEVOTHYROXINE 50 MCG TABLET PO SCH (05:22)
[2018-06-29] MEDS: OMEPRAZOLE 20 MG CAPSULE PO SCH (08:11)
[2018-06-29] MEDS: ASPIRIN EC 81 MG TABLET PO SCH (09:05)
[2018-06-29] MEDS: SULFAMETHOXAZOLE/TRIMETHOPRIM 800/160 MG TABLET PO SCH ×2 (09:05→20:46)
[2018-06-29] MEDS: Apixaban 5 MG TABLET PO SCH (09:05)
[2018-06-29] MEDS: METOPROLOL SUCCINATE 50 MG SR 24H TABLET PO SCH (09:06)
[2018-06-29] MEDS: LISINOPRIL 20 MG TABLET PO SCH (09:06)
--- NOTE | 2018-06-29 10:38 | OT PM DAY ---
Diagnosis : UTI PM - Occupational Therapy S: The patient reports she is doing well. Her daughter is present for occupational therapy session today. O: The patient agreed to participate in a cognitive screening test. The patient completed the Nick Cognitive Assessment (MoCA) with occupational therapy to assess baseline cognitive functions secondary to some concerns. Visuospatial/Executive: 2/5 Namin/3 Attention: 2/6 Language: 1/2 Abstraction: 0/2 Delayed recall: 0/5 Orientation: 3/6 Overall the patient's score on the MoCA was 11/30. This score indicates a MILD cognitive impairment. The patient completed the assessment sitting upright at the edge of bed in a quiet environment with her reading glasses in place. The patient's vision and hearing were not a factor in this assessment. A: The patient struggled significantly with delayed recall, attention, and abstraction tasks. The patient was also not oriented to date, day, or the city she was in. The patient struggled with higher level cognitive functions. The patient may benefit from a further more functional cognitive assessment including the CPT to determine the level the patient's cognitive ability allows her to live at. P: Continue seeing patient BID during the week and one time per day over the weekend for upper extremity strengthening, ADLs, and overall functional mobility. ADRIEN
--- NOTE | 2018-06-29 11:15 | PT.PROG ---
Progress Note Progress Note: S. Patient stated that she is feeling good this morning. O. Patient ambulated 175 feet to the therapy gym where she used the nu-step x15 minutes then performed sit to stands x 10, long arc quads, marches, resisted knee flexion, ball squeezes, clam shells all x 10 bilaterally with 2# and red thera bands, #2 box step ups x 5. Patient then ambulated 175 feet back to her room where she was left in bed with alarm and call light. A. Patient tolerated therapy well this morning, she required moderate verbal cues to remember how to get back to her room and to stay on task during exercises. Patient would continue to benefit from skilled therapy to increase strength, endurance and safety at this time. P. Continue POC.
--- NOTE | 2018-06-29 12:01 | OT.PROG ---
Progress Note Progress Note: S: pt stated she could not remember why she was in the hospital. O: pt was seen in her room and was upright in chair. Pt completed ADL dressing with Min A, UE/LE and underagarments included. She completed hygiene at sink INd. She completed entire transfer downstairs with use of walker. She completed UE/LE activity on nU step for up to 11 min to increase activity tolerance. She transferred to mat table where PT took over therapy. A: pt participated well and displayed ability to transfer well with good comfort nce. She did need a little assistance with dressing with cast on R leg and FM dressing. P: continue per POC.
[2018-06-29 14:09] LABS: BASOPHILS # (AUTO) 0.06 10*3/UL; BASOPHILS % (AUTO) 0.9 % (0-1); EOSINOPHILS # (AUTO) 0.23 10*3/UL; EOSINOPHILS % (AUTO) 3.5 % (0-8); Hematocrit [HCT] 39.9 % (37.0-47.0); Hemoglobin [HGB] 13.8 g/dL (12.0-16.0); LYMPHOCYTES # (AUTO) 1.76 10*3/uL; MEAN CORPUSCULAR HEMOGLOBIN 32.2 PG (27-31); MEAN CORPUSCULAR HGB CONC 34.6 g/dL (33-37); MEAN PLATELET VOLUME 9.9 FL (7.4-12.2); MONOCYTES # (AUTO) 0.47 10*3/UL (0.3-0.8); MONOCYTES % (AUTO) 7.2 % (5-15); NEUTROPHILS # (AUTO) 4.04 10*3/UL; NEUTROPHILS % (AUTO) 61.4 % (50-80); RED BLOOD COUNT 4.29 10^6/uL (4.20-5.40)
[2018-06-29 14:11] LABS: PLATELET MORPHOLOGY COMMENT NORMAL MORPHOLOGY (NORM); RBC MORPHOLOGY COMMENT NORMAL MORPHOLOGY (NORM); WBC MORPHOLOGY COMMENT NORMAL MORPHOLOGY (NORM)
[2018-06-29 14:26] LABS: BLOOD UREA NITROGEN 21 mg/dL (7-22)
--- NOTE | 2018-06-29 16:38 | PT.PROG ---
Progress Note Progress Note: S. Patient stated she is tired this afternoon however agreed to go to the therapy gym. O. Patient ambulated 175 feet to the therapy gym. where she used the nu-step x 5 minutes then performed seated exercises in the form of; long arc quads, marches, heel toe raises, ball squeezes, clam shells, resisted knee flexion all x 10 bilaterally, sit to stands x 5. Patient then ambulated 80 feet to the wheelchair and was returned to her room where she was left in bed with alarm and call light. A. Patient tolerated therapy fair, she became very confused at the end of the treatment, during ambulation she was running into the cruz and veering to the left. Patient lost her balance and required mod assist to correct herself. Patient continues to require verbal cues to stay on task and complete all exercises. Patient would continue to benefit from skilled therapy to increase strength, balance and safety at this time. P. Continue POC
[2018-06-29] MEDS: Apixaban Tab 2.5 MG TABLET PO SCH (20:46)
[2018-06-29] MEDS: Rosuvastatin Tab 20 MG TAB PO SCH (20:46)
--- NOTE | 2018-06-29 22:02 | PDOC(PROG) ---
Date of Service: 06/29/18 Time of Service: 21:59 Interval History: patient seen and evaluated earlier, discussed with daughter. no chest pain, SOB, N/V. doing much better in terms of confusion per daughter. daughter was concerned about blood pressures. Objective : Data - Labs CBC and BMP: 06/29/18 14:06 06/29/18 14:06 Additional Lab Results: 06/29/18 14:06 Calcium 9.5 Magnesium 1.8 Objective : Exam - General General Appearance: No Acute Distress, Cooperative Additional General Exam Details: Vital Signs - Last Taken Temperature 97.2 F 06/29/18 20:51 Pulse Rate 83 06/29/18 20:51 Respiratory Rate 16 06/29/18 20:51 Blood Pressure 109/62 06/29/18 20:51 Pulse Ox 95 06/29/18 20:51 - Eye Eye Exam: No Scleral Icterus - ENT ENT Exam: Mucous Membranes Moist - Neck Neck Exam: JVP is not Raised - Respiratory Respiratory Exam: Clear to Auscultation - Bilaterally, Breathing Non Labored - Cardiovascular Cardiovascular Exam: RRR, No Murmur, No Clicks, No Gallops, No Rubs, No JVD - GI/Abdominal GI/Abdominal Exam: Normal Bowel Sounds, Non Tender, Non Distended, Soft - Extremities Extremities Exam: No Clubbing Present, No Edema Present, No Cyanosis Present - Neurological Neurological Exam: Alert, No Facial Droop, Speech Intact / Clear, Moves All Extremities Equally Assessment and Plan - Patient Problems (1) Urinary tract infection Current Visit: Yes Status: Acute Code(s): N39.0 - Urinary tract infection, site not specified Qualifiers: Urinary tract infection type: acute cystitis Hematuria presence: without hematuria Qualified Code(s): N30.00 - Acute cystitis without hematuria (2) Essential hypertension Current Visit: Yes Status: Chronic Onset Date: 05/06/11 Code(s): I10 - Essential (primary) hypertension (3) Hypothyroidism Current Visit: Yes Status: Chronic Onset Date: 03/15/13 Code(s): E03.9 - Hypothyroidism, unspecified Qualifiers: Hypothyroidism type: acquired Qualified Code(s): E03.9 - Hypothyroidism, unspecified (4) Dementia Current Visit: Yes Status: Acute Code(s): F03.90 - Unspecified dementia without behavioral disturbance Qualifiers: Dementia type: Alzheimer's disease Alzheimer's disease onset: late-onset Dementia behavioral disturbance: without behavioral disturbance Qualified Code(s): G30.1 - Alzheimer's disease with late onset; F02.80 - Dementia in other diseases classified elsewhere without behavioral disturbance (5) Atrial fibrillation Current Visit: Yes Status: Chronic Onset Date: 07/23/15 Code(s): I48.91 - Unspecified atrial fibrillation Qualifiers: Atrial fibrillation type: unspecified Qualified Code(s): I48.91 - Unspecified atrial fibrillation - Assessment / Plan Additional Assessment/Plan Details: will add norvasc to blood pressure regimen. gave dose today. electrolytes rechecked, potassium much better continue bactrim for UTI, complete a total of 5 days therapy cast on right ankle off tomorrow will transfer to swing bed tomorrow with generalized weakness for extended PT and OT.
[2018-06-30] MEDS: LEVOTHYROXINE 50 MCG TABLET PO SCH (05:20)
[2018-06-30] MEDS: OMEPRAZOLE 20 MG CAPSULE PO SCH (07:23)
[2018-06-30] MEDS: Apixaban Tab 2.5 MG TABLET PO SCH (09:59)
[2018-06-30] MEDS: METOPROLOL SUCCINATE 50 MG SR 24H TABLET PO SCH (09:59)
[2018-06-30] MEDS: SULFAMETHOXAZOLE/TRIMETHOPRIM 800/160 MG TABLET PO SCH (09:59)
[2018-06-30] MEDS: LISINOPRIL 20 MG TABLET PO SCH (09:59)
[2018-06-30] MEDS: ASPIRIN EC 81 MG TABLET PO SCH (09:59)
--- NOTE | 2018-06-30 10:55 | OT.PROG ---
Progress Note Progress Note: S: pt stated she doesn't usually eat breakfast so she was ok with getting out of bed and participating in therapy. O: pt completed bed mobility to EOB INd. She needed min A with LE dressing as she had difficulty with donning pants over her cast on R LE. She completed UE dressing ing. She then transferred to sink, where she completed all hygiene activity Ind. she completed transfer entire way downstairs with use of FWW. She completed 2 in on UE bike before needing to stop and go for Dr. mukherjee. PT transferred her next door to Dr mukherjee. A: pt participates well and displays good activity tolerance throughout transfers. She did drag her R affected leg some today, which may make it important to continue to use her walker during transfers. P: continue per pOC.
--- NOTE | 2018-06-30 11:16 | OT PM DAY ---
Diagnosis : UTI PM - Occupational Therapy S: The patient was slightly confused and she ran into furniture while walking down to therapy. O: Downstairs in therapy we worked on upper extremity strengthening including wall pulleys with 1.5 kilograms for shoulder extension, rows, biceps curls, internal/external rotation, and shoulder adduction x15 repetitions bilaterally. She also stated that she has hand difficulties and that she needs to improve her hand strength. She completed green power web and digi-flex x20 repetitions each. A: The patient continued to demonstrate some confusion but did participate in upper extremity strengthening today. P: Continue seeing patient BID during the week and one time per day over the weekend for upper extremity strengthening, ADLs, and overall functional mobility. ADRIEN
[2018-06-30 11:41] VITALS: BP 110/70; RESP 18; TEMP 97.2; O2SAT 96
--- NOTE | 2018-06-30 14:49 | DCSUMMARY ---
Hospitalization Summary Admit Date: 06/26/2018 Discharge Date: 06/30/18 Primary Diagnosis:: UTI with altered mental status Hospital Course: This is a very pleasant 88 YO female that was admitted with a urinary tract admission, present on admission, and altered mental status. The patient's bacteria in urine was Klebsiella, and she was treated with rocephin and bactrim for a total of 5 days. Mental status improved with completion of antibiotic therapy. She scores low enough on her MOCA exam that it suggests moderate to advanced dementia. There was no evidence for stroke. The patient was found to have some electrolyte abnormalities and required potassium replacement. Resolved at discharge. The patient had recently fractured her right ankle and was admitted with a cast. Her cast was removed on the date of discharge, and she is in a walking boot. She struggled with therapy, and she really needs some extended therapy prior to going home with her daughter. The patient's daughter tells me that with underlying dementia, the patient will be living with the daughter upon ultimate discharge home and possibly to assisted living. Given age and weight, I reduced eliquis dose to 2.5 mg PO BID. I notified the patient's middle stitcher, Dr. Browne. We added norvasc for hypertension management and controll. Today, no chest pain, SOB, or nausea or vomiting. Assessment and Plan: 1. As per discharge assessments noted 2. Disposition: patient is discharged to swing bed. 3. Condition on discharge, stable, improved, but needs more therapy 4. Diet: regular diet 5. Activities: continue PT and OT 6. Follow-Up: 1. hospitalist service will continue to follow the patient. 7. Medications at the Time of Discharge: Active Medications Generic Name Dose Route Start Last Admin Trade Name Freq PRN Reason Stop Dose Admin Acetaminophen 650 mg 06/26/18 19:29 Tylenol PO Q6H PRN Pain or Fever Amlodipine Besylate 10 mg 06/30/18 09:00 06/30/18 09:59 Norvasc PO 10 mg DAILY MED Administration Apixaban 2.5 mg 06/29/18 21:00 06/30/18 09:59 Eliquis PO 2.5 mg BID MED Administration Aspirin 81 mg 06/27/18 09:00 06/30/18 09:59 Aspirin Ec PO 81 mg DAILY MED Administration Calcium Carbonate 1 - 2 tab 06/26/18 19:29 Tums PO Q6H PRN Heartburn Docusate Sodium 100 mg 06/26/18 19:29 Colace PO BID PRN Constipation Sodium Chloride 25 mls @ 200 mls/hr 06/26/18 19:29 Normal Saline 0.9% IV .Post Infusion PRN No Primary IV for Flush ONLY Levothyroxine Sodium 50 mcg 06/28/18 05:30 06/30/18 05:20 Synthroid PO 50 mcg DAILY@0530 MED Administration Lidocaine HCl 0.5 ml 06/26/18 19:29 Lidocaine Buffered Inj SUBD ONCE PRN IV Starts Lisinopril 20 mg 06/27/18 09:00 06/30/18 09:59 Prinivil PO 20 mg DAILY MED Administration Metoprolol Succinate 50 mg 06/27/18 09:00 06/30/18 09:59 Toprol Xl PO 50 mg DAILY MED Administration Omeprazole 20 mg 06/27/18 07:00 06/30/18 07:23 Prilosec PO 20 mg AC BK MED Administration Ondansetron HCl 4 mg 06/26/18 19:29 Zofran Inj IVP Q4H PRN NAUSEA / VOMITING Rosuvastatin Calcium 5 mg 06/26/18 21:00 06/29/18 20:46 Crestor PO 5 mg BEDTIME MED Administration Trimethoprim/Sulfamethoxazole 1 tab 06/28/18 21:00 06/30/18 09:59 Bactrim Ds 800/160 Tab PO 06/30/18 23:59 1 tab BID MED Administration 8. Time, care, counseling and coordination of care for this discharge is greater than 30 minutes. Exam - Vitals Vital Signs: Vital Signs Temperature 97.2 F Temperature Source Temporal Artery Scan Pulse Rate [Pulse Oximeter 84 Right] Pulse Rate 74 Respiratory Rate 18 Blood Pressure [Right Arm] 110/70 Blood Pressure [Left Arm] 140/83 Blood Pressure 140/78 Pulse Ox 96 Oxygen Delivery Method Room Air Height 5 ft 4 in Weight 133 lb 6.4 oz - General General Appearance: No Acute Distress, Cooperative - Eye Eye Exam: POSITIVE: No Scleral Icterus - ENT ENT Exam: POSITIVE: Mucous Membranes Moist - Neck Neck Exam: JVP is not Raised - Respiratory Respiratory Exam: POSITIVE: Clear to Auscultation - Bilaterally, Breathing Non Labored - Cardiovascular Cardiovascular Exam: POSITIVE: No Murmur, No Gallops, No Rubs, Irregular Rhythm - GI/Abdominal GI/Abdominal Exam: POSITIVE: Normal Bowel Sounds, Non Tender, Non Distended, Soft - Extremities Extremities Exam: POSITIVE: No Clubbing Present, No Edema Present, No Cyanosis Present - Neurological Neurological Exam: POSITIVE: Alert, No Facial Droop, Speech Intact / Clear, Moves All Extremities Equally Data Peritnent Studies: 06/26/18 06/26/18 06/26/18 16:45 16:45 16:45 WBC Hgb Hct Plt Count PT 13.4 H INR 1.34 VBG pH VBG pCO2 VBG HCO3 VBG Base Excess Sodium Potassium Chloride Carbon Dioxide Anion Gap BUN Creatinine BUN/Creatinine Ratio Glucose Calculated Osmolality Calcium Magnesium Total Bilirubin 0.5 AST 26 ALT 16 Alkaline Phosphatase 80 CK-MB (CK-2) 0.64 Troponin I < 0.012 C-Reactive Protein 0.8 Total Protein 7.5 Albumin 4.1 Globulin 3.4 06/26/18 06/29/18 06/29/18 16:59 14:06 14:06 WBC 6.57 Hgb 13.8 Hct 39.9 Plt Count 266 PT INR VBG pH 7.39 VBG pCO2 41 L VBG HCO3 25 VBG Base Excess 0 Sodium 136 Potassium 3.9 Chloride 102 Carbon Dioxide 24 Anion Gap 10 BUN 21 Creatinine 1.4 H BUN/Creatinine Ratio 15.00 Glucose 119 H Calculated Osmolality 285.0 Calcium 9.5 Magnesium 1.8 Total Bilirubin AST ALT Alkaline Phosphatase CK-MB (CK-2) Troponin I C-Reactive Protein Total Protein Albumin Globulin Procedures: [address] [facility]. [facility] [place] [id number] PH: DD: [phone] FAX: [phone] ~DIAGNOSTIC IMAGING REPORT~ ------- Patient: Sara Herndon : 1930 Sex: F Age: 88 Exam Name: MRI Brain WO Contrast Exam Date: 06/28/18 Report # : [id number] CPT Code: 01275 EMR/MR #: [id number] Ordering: Waldemar Batista Admiting: WALDEMAR BATISTA MD. Primary: Theo Del Toro MD Attending: WALDEMAR BATISTA MD. Signed MRI BRAIN SCAN WITHOUT IV CONTRAST, 06/28/2018 7:00 AM: Clinical History: Confusion. Prior Exam: 10/12/2017. Comparison Exam: CT head scan, 06/26/2018. Sequences: Sagittal T1; Axial ELIANA T2 and FLAIR. Axial diffusion weighted images with ADC mapping. 4th Ventricle: Normal. 3rd Ventricle: Mildly dilated, but normal for age. Lateral Ventricles: Moderately dilated but still within normal limits for her age. Sella: Normal size and normal pituitary gland. Cerebrum: No acute intracranial hemorrhagic focus or bland infarct. Multiple punctate periventricular white matter hyperintensities bilaterally extend into the watershed territory, consistent with small vessel ischemic disease. This amount of ischemic disease is appropriate for the patient's age. Cerebellum: Normal. No cerebellopontine angle mass. Cerebellar Tonsils: Normal position. Brainstem: Normal. Diffusion Weighted Imaging: Single 3 mm punctate hyperintensity in the posterior aspect of the left frontal lobe in the centrum semiovale on the diffusion images. This finding is of uncertain significance. Atrophy: Moderate cerebellar and cerebral atrophy. Extracerebral Mantles/Midline Shift: No extracerebral mantle or dural lesion. No midline shift. Sinuses: Normal. Readin. No acute intracranial hemorrhagic focus. No acute bland infarct. 2. Extensive small vessel ischemic disease appropriate for the patient's age of 88 years. 3. Diffusion-weighted images show a small punctate hyperintensity in the left frontal lobe. ADC mapping is normal. The significance of this single focus is uncertain. 4. Moderate cerebellar and cerebral atrophy. Dictated By: 06/28/18 0831 JEANMARIE MAYEN MD. Signed By: 06/28/18 0855 JEANMARIE MAYEN MD. Patient Problems - Patient Problem List (1) Altered mental status Current Visit: Yes Status: Acute Code(s): R41.82 - Altered mental status, unspecified Qualifiers: Altered mental status type: transient alteration of awareness Qualified Code(s): R40.4 - Transient alteration of awareness Category: Medical (2) Urinary tract infection Current Visit: Yes Status: Acute Comment: Clafor[place] started Code(s): N39.0 - Urinary tract infection, site not specified Qualifiers: Urinary tract infection type: acute cystitis Hematuria presence: without hematuria Qualified Code(s): N30.00 - Acute cystitis without hematuria Category: Medical (3) Essential hypertension Current Visit: Yes Status: Chronic Onset Date: 05/06/11 Code(s): I10 - Essential (primary) hypertension Category: Medical (4) Hypothyroidism Current Visit: Yes Status: Chronic Onset Date: 03/15/13 Code(s): E03.9 - Hypothyroidism, unspecified Qualifiers: Hypothyroidism type: acquired Qualified Code(s): E03.9 - Hypothyroidism, unspecified Category: Medical (5) Dementia Current Visit: Yes Status: Acute Code(s): F03.90 - Unspecified dementia without behavioral disturbance Qualifiers: Dementia type: Alzheimer's disease Alzheimer's disease onset: late-onset Dementia behavioral disturbance: without behavioral disturbance Qualified Code(s): G30.1 - Alzheimer's disease with late onset; F02.80 - Dementia in other diseases classified elsewhere without behavioral disturbance Category: Medical (6) Atrial fibrillation Current Visit: Yes Status: Chronic Onset Date: 07/23/15 Code(s): I48.91 - Unspecified atrial fibrillation Qualifiers: Atrial fibrillation type: unspecified Qualified Code(s): I48.91 - Unspecified atrial fibrillation Category: Medical
--- NOTE | 2018-06-30 15:47 | PT.PROG ---
Progress Note Progress Note: S. Patient stated she is feeling alright this morning. O. Patient ambulated 175 feet to the therapy gym where she performed seated long arc quads, marches, heel toe raises, ball squeezes, clam shells, resisted knee flexion and sit to stands all x 10 bilaterally. Patient ambulated 80 feet to the wheelchair and was wheeled back to her room where she was left in her chair with alarm and call light. A. Patient tolerated therapy fair, she was very fatigued after exercises and was unable to ambulate the full distance back to her room. Dr. Arango requested a Tall CAM boot, she was fitted for and instructed on proper use and care of the boot. Patient continues to struggle with weakness, fatigue and balance deficits, she would continue to benefit from skilled therapy to increase strength, endurance and safety at this time. P. Continue POC.
--- NOTE | 2018-06-30 15:57 | PT.PROG ---
Progress Note Progress Note: S. Patient stated that she is tried this afternoon. O. Patient ambulated 175 feet to the therapy gym where she performed exercises in the form of; heel slides, quad sets, glute sets, ankle pumps, short arc quads, heel toe raises, hip abduction/adduction, straight leg raises, seated long arc quads, marches, ball squeezes, clam shells, resisted knee flexion, heel toe raises, all x 10 bilaterally with red thera bands, Patient then performed sit to stands x 10 then ambulated 175 feet to her room and was left with call light and alarm. A. Patient tolerated therapy fair, she continues to be very weak and fatigues quickly, She continues to have balance deficits and requires frequent verbal cues to stay on task and complete all exercises safely. Patient would continue to benefit from skilled therapy to increase strength, endurance, and safety at this time. P. Continue POC.
--- NOTE | 2018-07-02 08:19 | OT PM DAY ---
Diagnosis : UTI PM - Occupational Therapy S: The patient was kind of out of it this afternoon. She was not as responsive as normal. She had some "blank out" stares. This was reported to her nurse. O: Today cognitively the patient seemed to be in a bit of a decline. The patient needed to go to the bathroom. The patient needed mod assist in order to turn and sit. While sitting on the toilet the patient kind of had a blank out period. The patient was able to wipe self after verbal cues were given and the patient transferred from sit to stand with min assist. Downstairs in therapy the patient performed yellow theraband resisted biceps curls, rows, shoulder extension, shoulder adduction, internal/external rotation x15 repetitions with bilateral upper extremities, and cane exercises with three pounds for shoulder flexion and side to side movement. A: The patient's alertness levels were a little questionable today. This was reported to the patient's nurse and she is going to be looking into other things that may be going on with the patient. P: Continue seeing patient BID during the week and one time per day over the weekend for upper extremity strengthening, ADLs, and overall functional mobility. MTDD
== END 2018-06-30 15:32 | disposition swing bed (61) | DRG 690 ==
LOC: ER 15:46 → MED/SURG 18:51
PROVIDERS: ADMIT Internal Medicine; ATTEND Internal Medicine

== ENCOUNTER 2018-10-12 16:56 | Inpatient (IN) ==
--- NOTE | 2018-10-12 17:11 | PDOC ---
Neuro Symptoms / Deficit HPI - General Chief Complaint: Neurological Complaints Stated Complaint: disorientation, possible stroke symptoms Date Seen by Provider: 10/12/18 Time Seen by Provider: 17:05 Source: POSITIVE: EMS, Other (Daughter) Exam Limitations: POSITIVE: Clinical condition Nurse's Notes Reviewed & Considered: Yes - Record Incomplete EMS Report Reviewed & Considered: Verbal - History of Present Illness Initial Comments: This is a well-developed, well-nourished, 88-year-old female with altered mental status. Patient failed to show up for her usual lunch date and her daughter was notified. Daughter went to her apartment found her lying in bed mumbling, having soiled herself in bed. Ambulance was summoned and they arrived and found her to be somewhat alert to only person but not place or time. Her blood sugar was 175 per EMS. She was transported here for further evaluation and arrives alert and oriented only to person not place or time and is unable to answer basic questions about her health history or her present condition. Further review of systems is unavailable. Patient is globally weak with no focal localizing signs appreciated. She does have a history of previous stroke with left-sided residual weakness that is not appreciated today. Patient was last known normal yesterday afternoon. Timing: REPORTS: Unknown Duration: Unknown Severity: Severe Character of Deficit(s): REPORTS: General(diffuse), Decr. Ability to Stand, Weak, Cannot Walk Associated Symptoms: REPORTS: Altered Mental Status, Disoriented, Decreased Responsiveness Usual Ability to Walk/Stand: REPORTS: Walks w/o Assistance Usual Cognition: REPORTS: Alert & Oriented x3 Similar Symptoms Previously: Yes Recently seen/treated/hospitalized: No Any Prior Injuries Related to Current Complaint?: No - Patient Home Medications Home Medications: Home Medications aspirin 81 mg tablet,delayed release 81 mg PO QDAY 11/02/17 cholecalciferol (vitamin D3) 1,000 unit capsule 1,000 unit PO QDAY #30 cap 12/18/17 latanoprost (PF) 0.005 % eye drops 1 drp OP BID #7.5 ml 12/18/17 rosuvastatin 5 mg tablet 5 mg PO QDAY #90 tab 03/30/18 RX: Metoprolol Succinate [Toprol Xl] 50 mg PO QDAY 05/19/18 potassium chloride ER 10 mEq tablet,extended release 10 meq PO QDAY #90 tab 06/17/18 omeprazole 20 mg capsule,delayed release 20 mg PO QDAY #90 cap 06/25/18 RX: Levothyroxine Sodium 50 mcg PO DAILY 06/30/18 brimonidine-timolol 0.2 %-0.5 % eye drops 1 drp OP Q12H #10 ml 08/09/18 apixaban 2.5 mg tablet 2.5 mg PO BID #60 tab 09/16/18 lisinopril 20 mg tablet 20 mg PO QDAY #30 tab 09/16/18 - Patient Allergies Allergies/Adverse Reactions: Allergies Allergy/AdvReac Type Severity Reaction Status Date / Time Penicillins AdvReac Unknown UNSURE Verified 10/12/18 17:05 Past Medical History - heen HEENT History: Cataracts, Dentures/Partials Additional HEENT History: bottom Cardiovascular History: Hypertension, CHF, Arrhythmia, Valvular Heart Disease, Hyperlipidemia, Other (please comment) Additional Cardiovasular History: 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 Pulmonary Edema Respiratory History: Other (please comment) Additional Respiratory History: Hypoxia secondary to CHF Gastrointestinal History: GERD Genitourinary History: Denies History Additional Genitourinary History: UTI 12/12/2015 Endocrine History: Hypothyroidism Musculoskeletal History: Back Pain Prosthesis or Implant: No Neurological History: TIA Blood Disorders: Previous Bld Transfusions Additional Blood Disorders History: with heart surgery Psychiatric History: Denies History History of Sexually Transmitted Diseases: No Cancer History: Denies History History of MDRO: No History of Other Communicable Diseases: No Alcohol Use: Occasionally In the Past 12 Months, Have Used or Abuse Any Substance: None Previous Surgical History: Yes Type / Date of Surgery: hysterectomy/ open heart/ CATARACT EXT/Tubal/Breast biopsy/Mitral valve repair/Aortic valve replacement Anesthesia Reactions: No Malignant Hyperthermia: No Significant Family History: Cancer ROS - Limitations ROS Limitations: Clinical Condition (Patient is alert only to person and further review of systems is unavailable because of her altered mental status.), Mental Impairment Neuro Symptoms / Deficit Exam - General Appearance General Appearance: POSITIVE: No Acute Distress - HEENT HEENT: POSITIVE: Head Inspection Nml, Eyes Inspection Nml, Ears Inspection Nml, Nose Inspection Nml, Oral/Dental Inspect. Nml, Pharynx Inspect. Nml, PERRL, EOMI - Pupil Size Pupil Size: 3 mm: Bilateral - Neuro / Psych Higher Functions: POSITIVE: Oriented to Person, Disoriented to Place, Disoriented to Time, Cognition Abnormalities, Slow Response to Command Cranial Nerves: POSITIVE: Normal As Tested, No Evidence of Acute CVA Peripheral Exam: POSITIVE: Sensation Normal, Motor Normal, Reflexes Normal, Weakness Reflexes: Patellar (R): 3+, Patellar (L): 3+, Radial (R): 4+, Radial (L): 4+ - Neck Neck: POSITIVE: Supple, Non-Tender - Respiratory Respiratory: POSITIVE: No Respiratory Distress, Breath Sounds Normal - Cardiovascular Cardiovascular: POSITIVE: Heart Sounds Normal Peripheral Pulses: Radial (R): 4+ - Abdomen Abdomen: Soft: (All Quadrants), Normal Bowel Sounds: (All Quadrants), Denies Tenderness: (All Quadrants), No Splenomegaly: (All Quadrants), No Hepatomegaly: (All Quadrants), No Guarding: (All Quadrants), No Rebound: (All Quadrants), No Palpable Pulse: (All Quadrants), No Palpabale Mass: (All Quadrants), No Distention: (All Quadrants), No Rigidity: (All Quadrants) - Skin Skin: POSITIVE: Intact, Normal For Race, Warm, Dry, No Rash - Extremities Extremity: Non-Tender: (All Extremities), Normal ROM: (All Extremities), Normal Inspection: (All Extremities), Pelvis Stable: (All Extremities) Neuro Symptom/Deficit Progress - Results Reviewed by me Xrays/CTs/US Reviewed by me: Yes Discussed with Radiologist: Yes Lab Results Reviewed by Me: Yes CBC and BMP: 10/12/18 17:44 10/12/18 17:30 Lab Results:: Laboratory Results 10/12/18 10/12/18 10/12/18 17:28 17:30 17:30 WBC RBC Hgb Hct MCV MCH MCHC RDW Std Deviation RDW Coeff of Joseph Plt Count MPV Immature Gran % (Auto) Neut % (Auto) Lymph % (Auto) [place] % (Auto) Eos % (Auto) Baso % (Auto) Immature Gran # (Auto) Neut # (Auto) Lymph # (Auto) [place] # (Auto) Eos # (Auto) Baso # (Auto) WBC Morphology Comment Plt Morphology Comment RBC Morph Comment D-Dimer VBG pH 7.43 H VBG pCO2 34 L VBG HCO3 23 VBG Base Excess -2 Sodium 136 Potassium 3.3 L Chloride 96 L Carbon Dioxide 21 L Anion Gap 19 BUN 22 Creatinine 1.2 BUN/Creatinine Ratio 18.33 Glucose 185 H Calculated Osmolality 289.0 Lactic Acid 2.0 Calcium 10.1 Magnesium 1.6 Total Bilirubin 0.8 AST 37 ALT 15 Alkaline Phosphatase 120 Total Creatine Kinase 89 CK-MB (CK-2) Troponin I Handheld C-Reactive Protein < 0.5 NT-Pro-B Natriuret Pep 68431 H Total Protein 9.4 H Albumin 5.2 H Globulin 4.2 H Albumin/Globulin Ratio 1.20 L TSH Free T4 Ur Collection Type Urine Color Urine Clarity Urine pH Ur Specific [place] U Specif Grav (Refrac) Urine Protein Urine Glucose (UA) Urine Ketones Urine Occult Blood Urine Nitrate Urine Bilirubin Urine Urobilinogen Ur Leukocyte Esterase Ur Culture Indicated? Urine Opiates Screen Ur Buprenorphine Ur Oxycodone Screen Urine Methadone Screen Ur Propoxyphene Screen Barbiturate Screen U Tricyclic Antidepress Phencyclidine Screen Amphetamines Screen U Methamphetamines Scrn Benzodiazepines Screen Cocaine Screen U Marijuana (THC) Screen Serum Alcohol < 10 10/12/18 10/12/18 10/12/18 17:30 17:30 17:42 WBC RBC Hgb Hct MCV MCH MCHC RDW Std Deviation RDW Coeff of Joseph Plt Count MPV Immature Gran % (Auto) Neut % (Auto) Lymph % (Auto) [place] % (Auto) Eos % (Auto) Baso % (Auto) Immature Gran # (Auto) Neut # (Auto) Lymph # (Auto) [place] # (Auto) Eos # (Auto) Baso # (Auto) WBC Morphology Comment Plt Morphology Comment RBC Morph Comment D-Dimer VBG pH VBG pCO2 VBG HCO3 VBG Base Excess Sodium Potassium Chloride Carbon Dioxide Anion Gap BUN Creatinine BUN/Creatinine Ratio Glucose Calculated Osmolality Lactic Acid Calcium Magnesium Total Bilirubin AST ALT Alkaline Phosphatase Total Creatine Kinase CK-MB (CK-2) Cancelled 1.64 Troponin I Handheld 0.030 C-Reactive Protein NT-Pro-B Natriuret Pep Total Protein Albumin Globulin Albumin/Globulin Ratio TSH 5.66 H Free T4 1.40 Ur Collection Type Urine Color Urine Clarity Urine pH Ur Specific [place] U Specif Grav (Refrac) Urine Protein Urine Glucose (UA) Urine Ketones Urine Occult Blood Urine Nitrate Urine Bilirubin Urine Urobilinogen Ur Leukocyte Esterase Ur Culture Indicated? Urine Opiates Screen Ur Buprenorphine Ur Oxycodone Screen Urine Methadone Screen Ur Propoxyphene Screen Barbiturate Screen U Tricyclic Antidepress Phencyclidine Screen Amphetamines Screen U Methamphetamines Scrn Benzodiazepines Screen Cocaine Screen U Marijuana (THC) Screen Serum Alcohol 10/12/18 10/12/18 10/12/18 17:44 17:44 18:25 WBC 10.97 H RBC 5.70 H Hgb 17.5 H Hct 49.8 H MCV 87.4 MCH 30.7 MCHC 35.1 RDW Std Deviation 41.2 RDW Coeff of Joseph 12.8 Plt Count 264 MPV 10.0 Immature Gran % (Auto) 0.1 Neut % (Auto) 80.2 H Lymph % (Auto) 11.8 [place] % (Auto) 7.7 Eos % (Auto) 0.1 Baso % (Auto) 0.1 Immature Gran # (Auto) 0.01 Neut # (Auto) 8.81 Lymph # (Auto) 1.29 [place] # (Auto) 0.84 H Eos # (Auto) 0.01 Baso # (Auto) 0.01 WBC Morphology Comment Normal morphology Plt Morphology Comment Normal morphology RBC Morph Comment Normal morphology D-Dimer 776 H VBG pH VBG pCO2 VBG HCO3 VBG Base Excess Sodium Potassium Chloride Carbon Dioxide Anion Gap BUN Creatinine BUN/Creatinine Ratio Glucose Calculated Osmolality Lactic Acid Calcium Magnesium Total Bilirubin AST ALT Alkaline Phosphatase Total Creatine Kinase CK-MB (CK-2) Troponin I Handheld C-Reactive Protein NT-Pro-B Natriuret Pep Total Protein Albumin Globulin Albumin/Globulin Ratio TSH Free T4 Ur Collection Type Cath specimen Urine Color Yellow Urine Clarity Clear Urine pH 7.5 Ur Specific [place] 1.020 U Specif Grav (Refrac) 1.015 Urine Protein >300 A Urine Glucose (UA) 250 Urine Ketones 40 Urine Occult Blood Moderate H Urine Nitrate Negative Urine Bilirubin Negative Urine Urobilinogen 0.2 Ur Leukocyte Esterase Negative Ur Culture Indicated? Culture not set Urine Opiates Screen Negative Ur Buprenorphine Negative Ur Oxycodone Screen Negative Urine Methadone Screen Negative Ur Propoxyphene Screen Negative Barbiturate Screen Negative U Tricyclic Antidepress Negative Phencyclidine Screen Negative Amphetamines Screen Negative U Methamphetamines Scrn Negative Benzodiazepines Screen Negative Cocaine Screen Negative U Marijuana (THC) Screen Negative Serum Alcohol - Patient's Progress Pain Medication Addressed: POSITIVE: Not Applicable Status: POSITIVE: Improved MDM / ED Course: Patient was evaluated, an IV started, blood drawn and sent to the lab for studies, chest x-ray and EKG were obtained. Findings: CBC shows white count of 10.97, hemoglobin 17.5, hematocrit 49.8, platelets are 267, neutrophil predominance of 80.2%. CMP shows abnormalities with potassium of 3.3, chloride of 96, CO2 of 21, glucose 185, the remainder the panel was normal. Magnesium is normal at 1.6. Blood gases show pH is 7.43, PCO2 of 34, bicarbonate 23, base excess is -2. Lactic acid is 2.0. Total creatinine is 89, CK-MB is 1.64, troponin is 0.030. BNP is elevated at 18,800. TSH is elevated at 5.66 with a normal free T4 of 1.40. CRP is less than 0.5. Blood alcohol is negative. Urine drug screen is negative for all substances tested. Urinalysis is positive for occult blood. Chest x-ray shows normal chest radiograph with no acute cardiopulmonary decompensation. CT scan of the head shows no acute intracranial abnormalities. Assessment: Altered mental status. Plan: Patient being admitted by Dr. Lopez. CAP: POSITIVE: Chest X-ray CVA/Syncope Quality Measure Initiative: POSITIVE: NIH Stroke Scale - Consult Consult (If Yes, Name of Consulting MD & Time Called): Yes (Dr. Garcia, communications operator neurologist. Dr. Lopez, hospitalist.) Consulting MD will see pt:: POSITIVE: [facility] Admit Counseled: POSITIVE: Patient, Family, RE: Lab Results, RE: Radiology Results, RE: DX, RE: Need for F/U Patient Care Time - Estimated PCT Patient Care Time (In Minutes): 45 Vital Signs - Recent Vital Signs Vital Signs: Vital Signs (Last 8 hours) Temp Pulse Resp BP Pulse Ox 10/12/18 20:45 97 F 71 20 107/72 96 10/12/18 20:15 67 17 10/12/18 16:53 97.5 F 87 20 114/80 93 - VS Reviewed Vital Signs Reviewed: Yes Discharge Clinical Impression: Altered mental status Qualifiers: Altered mental status type: disorientation Qualified Code(s): R41.0 - Disorientation, unspecified Discharge Disposition: Admit to Inpatient Condition: Stable Patient Problem(s) Reviewed: Yes Date Decision to Admit to Inpatient: 10/12/18 Time Decision to Admit to Inpatient: 19:29
[2018-10-12 17:37] LABS: VENOUS PH 7.43 (7.32-7.42)
--- NOTE | 2018-10-12 17:50 | DI ---
XR CXR 1VW 10/12/2018 5:07 PM HISTORY: [facility] DI ^altered mental status Comparison: Portable chest x-ray 12/10/2017. CTA PE 10/11/2017. Findings: A single portable frontal view of the chest is submitted. 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 Images demonstrate normal aeration without focal consolidation. There is no large pneumothorax or ple ural effusion. The cardiomediastinal silhouette is within normal limits with atheromatous calcificati ons in the arch of the tortuous thoracic aorta. The osseous structures are not significantly changed. Convexity at the left cardiophrenic angle corresponds with a known hiatal hernia. Impression: No radiographic evidence of acute cardiopulmonary disease.
[2018-10-12 17:53] LABS: BLOOD UREA NITROGEN 22 mg/dL (7-22); BUN/CREATININE RATIO 18.33 (6-20); SERUM ALBUMIN 5.2 g/dL (3.5-4.8)
--- NOTE | 2018-10-12 17:54 | DI ---
CT Head WO Contrast 10/12/2018 5:07 PM History: [facility] DI ^altered mental status Comparison: 06/26/2018. Procedure: Noncontrast CT images through the head were reviewed. Findings: There is no acute intracranial hemorrhage or extra-axial fluid collection. The ventricles a re symmetric. There is mild global atrophy which is within the expected range for age. Decreased atte nuation in the periventricular and subcortical white matter is consistent with moderate chronic small vessel ischemic changes. There is otherwise normal montemayor-white differentiation without focal mass or mass-effect. Atheromatous calcifications are noted in the intracranial vasculature. There are postsur gical changes of the bilateral globes. The visualized portions of the mastoid air cells are clear. Th ere is minimal mucosal thickening along the posterior left maxillary sinus wall. Review of the osseou s structures demonstrate no depressed calvarial fracture or aggressive osseous lesion. The facial sof t tissues are unremarkable. Impression: 1. No acute intracranial findings. 2. Age related senescent changes as above.
[2018-10-12 18:03] LABS: BASOPHILS # (AUTO) 0.01 10*3/UL; BASOPHILS % (AUTO) 0.1 % (0-1); EOSINOPHILS # (AUTO) 0.01 10*3/UL; EOSINOPHILS % (AUTO) 0.1 % (0-8); Hematocrit [HCT] 49.8 % (37.0-47.0); Hemoglobin [HGB] 17.5 g/dL (12.0-16.0); LYMPHOCYTES # (AUTO) 1.29 10*3/uL; MEAN CORPUSCULAR HEMOGLOBIN 30.7 PG (27-31); MEAN CORPUSCULAR HGB CONC 35.1 g/dL (33-37); MEAN CORPUSCULAR VOLUME 87.4 FL (81-99); MONOCYTES # (AUTO) 0.84 10*3/UL (0.3-0.8); MONOCYTES % (AUTO) 7.7 % (5-15); NEUTROPHILS # (AUTO) 8.81 10*3/UL; NEUTROPHILS % (AUTO) 80.2 % (50-80)
[2018-10-12 18:18] LABS: PLATELET MORPHOLOGY COMMENT NORMAL MORPHOLOGY (NORM); RBC MORPHOLOGY COMMENT NORMAL MORPHOLOGY (NORM); WBC MORPHOLOGY COMMENT NORMAL MORPHOLOGY (NORM)
[2018-10-12] MEDS ORDERED: LIDOCAINE HCL 2 % 10 ML JELLY URO-JECT TOPICAL PRN (18:29)
[2018-10-12 18:34] LABS: BILIRUBIN,URINE NEGATIVE (NEG); CLARITY,URINE CLEAR (CLEAR); COLOR,URINE YELLOW (Y); GLUCOSE, URINE (UA) 250 mg/dL (NEG); OCCULT BLOOD,URINE MODERATE (NEG); PH,URINE 7.5 (5.0-8.5); PROTEIN,URINE >300 mg/dl (NEG); UROBILINOGEN,URINE 0.2 EU/dL (0.2)
[2018-10-12 18:35] LABS: URINE SAMPLE TYPE CATH SPECIMEN
[2018-10-12 18:44] LABS: URINE SPECIFIC GRAVITY - MAN 1.015
[2018-10-12 18:47] LABS: AMPHETAMINE SCREEN NEGATIVE (NEG); CANNABINOID SCREEN,URINE NEGATIVE (NEG); COCAINE SCREEN NEGATIVE (NEG); METHADONE URINE SCREEN NEGATIVE (NEG); METHAMPHETAMINES SCREEN,URINE NEGATIVE (NEG); OPIATE SCREEN,URINE NEGATIVE (NEG)
[2018-10-12] MEDS ORDERED: LISINOPRIL 20 MG TABLET PO SCH (20:14)
[2018-10-12] MEDS ORDERED: LIDOCAINE W/ SODIUM BICARB 0.5 ML SYR SUBD PRN (20:14)
[2018-10-12] MEDS ORDERED: ACETAMINOPHEN 325 MG TABLET PO PRN (20:14)
[2018-10-12] MEDS ORDERED: CALCIUM CARBONATE 500 MG (TUMS) CHEWABLE TABLET PO PRN (20:14)
[2018-10-12] MEDS ORDERED: DOCUSATE 100 MG CAPSULE PO PRN (20:14)
[2018-10-12] MEDS: Potassium Chloride Tab 10 MEQ TAB PO SCH (21:02)
[2018-10-12] MEDS: ASPIRIN EC 81 MG TABLET PO SCH (21:02)
[2018-10-12] MEDS: CHOLECALCIFEROL 1000 IU TABLET PO SCH (21:03)
[2018-10-12] MEDS: METOPROLOL SUCCINATE 50 MG SR 24H TABLET PO SCH (21:03)
[2018-10-12] MEDS: OMEPRAZOLE 20 MG CAPSULE PO SCH (21:03)
[2018-10-12] MEDS: D5-1/2NS + 20mEq KCL 1,000 ML PRIMARY IV SCH (21:20)
[2018-10-12] MEDS: Apixaban Tab 2.5 MG TABLET PO SCH (21:21)
[2018-10-12] MEDS: TIMOLOL OP SCH (21:36)
[2018-10-12] MEDS: BRIMONIDINE TARTRATE OP SCH (21:36)
[2018-10-12] MEDS: [UNRECOGNIZED DRUG - OTHER] OP SCH (21:37)
[2018-10-12] MEDS: LATANOPROST OP SCH (21:37)
--- NOTE | 2018-10-12 22:51 | PDOC ---
HPI - History of Present Illness Date of Service: 10/12/18 Time of Service: 22:46 Chief Complaint: Altered mental state History of Present Illness: This very pleasant 88-year-old female with dementia, atrial fibrillation status post maze procedure and still on anticoagulants therapy, amongst other medical issues, who was brought in for evaluation today by her daughter after the patient was found confused, mumbling, and soiled in her bedroom. She was brought in for evaluation, and had no focal findings and a head CT scan did not suggest stroke. To my knowledge, she has no diagnosis of seizure disorder. The patient had a fall earlier in 2018 which she fractured her ankle. She has been cared for by her daughter since that time. Unfortunately at the time of my evaluation earlier this evening, no family members were available and history is very limited by the patient's dementia. In the past, she has had some admissions for altered mental status and they were attributable to urinary tract infections but there is no evidence of urinary tract infection, or pulmonary infection tonight. She is afebrile on presentation. Her speech is intact and clear and there is no slurred speech and her facial movements are symmetric. Again no lateralizing signs to suggest stroke. Past Medical History Medical History: 1. Hypertension. 2. GERD. 3. hypothyroidism. 4. 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 5. History of atrial fibrillation. 6. History of mitral valve clipping. 7. Admission in September 2017 for TIA. 8. hypercholesterolemia. 9. Admission November 2017 for uncontrolled atrial flutter she was transferred to [facility] and she needed cardioversion. 10. Slipped on ice April 2018 that resulted in distal fibula fracture. Surgical History: 1. Hysterectomy. 2. Aortic valve replacement with Maze procedure for atrial fibrillation. 3. Status post mitral valve clipping Family History: Reviewed an Not Pertinent Pertinent Family History: I cannot obtain this patient information due to her dementia and confusion Past Social History: Does not currently smoke tobacco. Reportedly in the past did have upwards of 2 beers per evening, but I cannot obtain information about her current living status as she had lived with the daughter after her ankle fr acture in April 2018 but may be living back on her own. She has known dementia. Tobacco Use: Never Smoker In the Past 12 Months, Have Used or Abuse Any of the Following Substance: None Alcohol Use: Occasionally (In the past. I'm not aware if she is currently drinking alcohol now.) Medication / Allergies Home Medications: Home Medications Medication Instructions Recorded Confirmed aspirin 81 mg tablet,delayed 81 mg PO QDAY 11/02/17 09/16/18 release cholecalciferol (vitamin D3) 1,000 1,000 unit PO QDAY #30 cap 12/18/17 09/16/18 unit capsule latanoprost (PF) 0.005 % eye drops 1 drp OP BID #7.5 ml 12/18/17 09/16/18 rosuvastatin 5 mg tablet 5 mg PO QDAY #90 tab 03/30/18 09/16/18 Metoprolol Succinate [Toprol Xl] 50 mg PO QDAY 05/19/18 09/16/18 potassium chloride ER 10 mEq 10 meq PO QDAY #90 tab 06/17/18 09/16/18 tablet,extended release omeprazole 20 mg capsule,delayed 20 mg PO QDAY #90 cap 06/25/18 09/16/18 release Levothyroxine Sodium 50 mcg PO DAILY 06/30/18 09/16/18 brimonidine-timolol 0.2 %-0.5 % 1 drp OP Q12H #10 ml 08/09/18 09/16/18 eye drops apixaban 2.5 mg tablet 2.5 mg PO BID #60 tab 09/16/18 09/16/18 lisinopril 20 mg tablet 20 mg PO QDAY #30 tab 09/16/18 09/16/18 Allergies/Adverse Reactions: Allergies Allergy/AdvReac Type Severity Reaction Status Date / Time Penicillins AdvReac Unknown UNSURE Verified 10/12/18 17:05 Review of Systems - Review of Systems ROS Unobtainable: Due to Mental Status (I cannot obtain an adequate review of systems due to the patient's dementia. She currently denies any pain to me.) Exam - Vitals Vital Signs: Vital Signs Temperature 97 F Temperature Source Temporal Artery Scan Pulse Rate [Telemetry] 71 Respiratory Rate 20 Blood Pressure [Left Arm] 107/72 Pulse Ox 96 Oxygen Delivery Method Room Air Height 5 ft 6 in Weight 145 lb - General General Appearance: No Acute Distress, Cooperative - Head Head Exam: Normal Inspection, Normocephalic, Atraumatic - Eye Eye Exam: POSITIVE: No Scleral Icterus - ENT ENT Exam: POSITIVE: Mucous Membranes Moist - Neck Neck Exam: JVP is not Raised - Respiratory Respiratory Exam: POSITIVE: Clear to Auscultation - Bilaterally, Breathing Non Labored, Normal to Percussion and Palpation - Cardiovascular Cardiovascular Exam: POSITIVE: No Gallops, No Rubs, Irregular Rhythm, Systolic Murmur, Clicks - GI/Abdominal GI/Abdominal Exam: POSITIVE: Normal Bowel Sounds, Non Tender, Non Distended, Soft - Rectal Rectal Exam: POSITIVE: Deferred - External Exam: POSITIVE: Deferred Exam: POSITIVE: Deferred - Extremities Extremities Exam: POSITIVE: No Clubbing Present, No Edema Present, No Cyanosis Present - Neurological Neurological Exam: POSITIVE: Alert, No Facial Droop, Speech Intact / Clear, Moves All Extremities Equally - Psychiatric Psychiatric Exam: POSITIVE: Normal Affect, Normal Mood - Integumentary Integumentary Exam: POSITIVE: Abrasion (On upper portion of thoracic spine/lower cervical area, there appears to be an abrasion that is otherwise clean, dry, intact) Results - Labs CBC and BMP: 10/12/18 17:44 10/12/18 17:30 Additional Lab Results: Laboratory Results 10/12/18 10/12/18 10/12/18 17:28 17:30 17:30 WBC RBC Hgb Hct MCV MCH MCHC RDW Std Deviation RDW Coeff of Joseph Plt Count MPV Immature Gran % (Auto) Neut % (Auto) Lymph % (Auto) Crenshaw % (Auto) Eos % (Auto) Baso % (Auto) Immature Gran # (Auto) Neut # (Auto) Lymph # (Auto) Crenshaw # (Auto) Eos # (Auto) Baso # (Auto) WBC Morphology Comment Plt Morphology Comment RBC Morph Comment D-Dimer VBG pH 7.43 H VBG pCO2 34 L VBG HCO3 23 VBG Base Excess -2 Sodium 136 Potassium 3.3 L Chloride 96 L Carbon Dioxide 21 L Anion Gap 19 BUN 22 Creatinine 1.2 BUN/Creatinine Ratio 18.33 Glucose 185 H Calculated Osmolality 289.0 Lactic Acid 2.0 Calcium 10.1 Magnesium 1.6 Total Bilirubin 0.8 AST 37 ALT 15 Alkaline Phosphatase 120 Total Creatine Kinase 89 CK-MB (CK-2) Troponin I Handheld C-Reactive Protein < 0.5 NT-Pro-B Natriuret Pep 24120 H Total Protein 9.4 H Albumin 5.2 H Globulin 4.2 H Albumin/Globulin Ratio 1.20 L TSH Free T4 Ur Collection Type Urine Color Urine Clarity Urine pH Ur Specific Marvell U Specif Grav (Refrac) Urine Protein Urine Glucose (UA) Urine Ketones Urine Occult Blood Urine Nitrate Urine Bilirubin Urine Urobilinogen Ur Leukocyte Esterase Ur Culture Indicated? Urine Opiates Screen Ur Buprenorphine Ur Oxycodone Screen Urine Methadone Screen Ur Propoxyphene Screen Barbiturate Screen U Tricyclic Antidepress Phencyclidine Screen Amphetamines Screen U Methamphetamines Scrn Benzodiazepines Screen Cocaine Screen U Marijuana (THC) Screen Serum Alcohol < 10 10/12/18 10/12/18 10/12/18 17:30 17:30 17:42 WBC RBC Hgb Hct MCV MCH MCHC RDW Std Deviation RDW Coeff of Joseph Plt Count MPV Immature Gran % (Auto) Neut % (Auto) Lymph % (Auto) Crenshaw % (Auto) Eos % (Auto) Baso % (Auto) Immature Gran # (Auto) Neut # (Auto) Lymph # (Auto) Crenshaw # (Auto) Eos # (Auto) Baso # (Auto) WBC Morphology Comment Plt Morphology Comment RBC Morph Comment D-Dimer VBG pH VBG pCO2 VBG HCO3 VBG Base Excess Sodium Potassium Chloride Carbon Dioxide Anion Gap BUN Creatinine BUN/Creatinine Ratio Glucose Calculated Osmolality Lactic Acid Calcium Magnesium Total Bilirubin AST ALT Alkaline Phosphatase Total Creatine Kinase CK-MB (CK-2) Cancelled 1.64 Troponin I Handheld 0.030 C-Reactive Protein NT-Pro-B Natriuret Pep Total Protein Albumin Globulin Albumin/Globulin Ratio TSH 5.66 H Free T4 1.40 Ur Collection Type Urine Color Urine Clarity Urine pH Ur Specific Marvell U Specif Grav (Refrac) Urine Protein Urine Glucose (UA) Urine Ketones Urine Occult Blood Urine Nitrate Urine Bilirubin Urine Urobilinogen Ur Leukocyte Esterase Ur Culture Indicated? Urine Opiates Screen Ur Buprenorphine Ur Oxycodone Screen Urine Methadone Screen Ur Propoxyphene Screen Barbiturate Screen U Tricyclic Antidepress Phencyclidine Screen Amphetamines Screen U Methamphetamines Scrn Benzodiazepines Screen Cocaine Screen U Marijuana (THC) Screen Serum Alcohol 10/12/18 10/12/18 10/12/18 17:44 17:44 18:25 WBC 10.97 H RBC 5.70 H Hgb 17.5 H Hct 49.8 H MCV 87.4 MCH 30.7 MCHC 35.1 RDW Std Deviation 41.2 RDW Coeff of Joseph 12.8 Plt Count 264 MPV 10.0 Immature Gran % (Auto) 0.1 Neut % (Auto) 80.2 H Lymph % (Auto) 11.8 Crenshaw % (Auto) 7.7 Eos % (Auto) 0.1 Baso % (Auto) 0.1 Immature Gran # (Auto) 0.01 Neut # (Auto) 8.81 Lymph # (Auto) 1.29 Crenshaw # (Auto) 0.84 H Eos # (Auto) 0.01 Baso # (Auto) 0.01 WBC Morphology Comment Normal morphology Plt Morphology Comment Normal morphology RBC Morph Comment Normal morphology D-Dimer 776 H VBG pH VBG pCO2 VBG HCO3 VBG Base Excess Sodium Potassium Chloride Carbon Dioxide Anion Gap BUN Creatinine BUN/Creatinine Ratio Glucose Calculated Osmolality Lactic Acid Calcium Magnesium Total Bilirubin AST ALT Alkaline Phosphatase Total Creatine Kinase CK-MB (CK-2) Troponin I Handheld C-Reactive Protein NT-Pro-B Natriuret Pep Total Protein Albumin Globulin Albumin/Globulin Ratio TSH Free T4 Ur Collection Type Cath specimen Urine Color Yellow Urine Clarity Clear Urine pH 7.5 Ur Specific Marvell 1.020 U Specif Grav (Refrac) 1.015 Urine Protein >300 A Urine Glucose (UA) 250 Urine Ketones 40 Urine Occult Blood Moderate H Urine Nitrate Negative Urine Bilirubin Negative Urine Urobilinogen 0.2 Ur Leukocyte Esterase Negative Ur Culture Indicated? Culture not set Urine Opiates Screen Negative Ur Buprenorphine Negative Ur Oxycodone Screen Negative Urine Methadone Screen Negative Ur Propoxyphene Screen Negative Barbiturate Screen Negative U Tricyclic Antidepress Negative Phencyclidine Screen Negative Amphetamines Screen Negative U Methamphetamines Scrn Negative Benzodiazepines Screen Negative Cocaine Screen Negative U Marijuana (THC) Screen Negative Serum Alcohol - Imaging Status: Image Reviewed by Me (I looked at the head CT scan and the chest x-ray. Other than senescent changes on the chest x-ray consistent with prior maze procedure and sternotomy, there appears to be no acute findings on the head CT scan or the chest x-ray.) Assessment and Plan - Patient Problems (1) Altered mental status Current Visit: Yes Status: Chronic Code(s): R41.82 - Altered mental status, unspecified Qualifiers: Altered mental status type: disorientation Qualified Code(s): R41.0 - Disorientation, unspecified (2) Aortic valve stenosis Current Visit: Yes Status: Chronic Onset Date: 05/20/12 Code(s): I35.0 - Nonrheumatic aortic (valve) stenosis Qualifiers: Cardiac valve disease etiology: etiology unspecified Qualified Code(s): I35.0 - Nonrheumatic aortic (valve) stenosis (3) Atrial fibrillation Current Visit: Yes Status: Chronic Onset Date: 07/23/15 Code(s): I48.91 - Unspecified atrial fibrillation Qualifiers: Atrial fibrillation type: chronic Qualified Code(s): I48.2 - Chronic atrial fibrillation (4) Benign hypertension Current Visit: Yes Status: Chronic (5) CHF (congestive heart failure) Current Visit: Yes Status: Chronic Code(s): I50.9 - Heart failure, u nspecified Qualifiers: Heart failure type: systolic Heart failure chronicity: acute on chronic Qualified Code(s): I50.23 - Acute on chronic systolic (congestive) heart failure (6) Dementia Current Visit: Yes Status: Chronic Code(s): F03.90 - Unspecified dementia without behavioral disturbance Qualifiers: Dementia type: Alzheimer's disease Alzheimer's disease onset: late-onset Dementia behavioral disturbance: without behavioral disturbance Qualified Code(s): G30.1 - Alzheimer's disease with late onset; F02.80 - Dementia in other diseases classified elsewhere without behavioral disturbance (7) Essential hypertension Current Visit: Yes Status: Chronic Onset Date: 05/06/11 Code(s): I10 - Essential (primary) hypertension (8) GERD (gastroesophageal reflux disease) Current Visit: Yes Status: Chronic Onset Date: 03/15/13 Code(s): K21.9 - Gastro-esophageal reflux disease without esophagitis Qualifiers: Esophagitis presence: esophagitis presence not specified Qualified Code(s): K21.9 - Gastro-esophageal reflux disease without esophagitis - Assessment / Plan Additional Assessment/Plan Details: There is no sign of infection at this time, but given the story, I wonder about potential seizures. I will try to discuss with the patient's daughter, and perhaps arrange a neurology evaluation with EEG as an outpatient if possible. He may be worth empirically considering Keppra should the patient's confusion not clear. She has some medical reasons to have confusion including hypokalemia. Her labs suggest dehydration although clinically she appears to be euvolemic. The patient's brain natruretic peptide suggests that she is probably in stage III [employer] congestive heart failure. This is a chronic condition, but she's not had an echocardiogram on record here since 2018 seconds] worth repeating tomorrow. I noticed that she had a little bit higher protein on her urinalysis. I reviewed her prior urinalysis protein levels from prior hospital stays. Dating back to 2016 she's had some protein spilling but it seems to be a little higher on tiffany's urinalysis I'll try and quantify this over a 24-hour period of time. This could also be contributing to confusion to some degree and she may have kidney disease is more advanced but has not being recognized because of what appears to be a normal creatinine. I'll get PT and OT involved. Continue CVA prevention measures with Fátima I'll try to discuss with the patient's daughter. I'm not so sure that this patient should be at home anymore and she continually has recurrent admissions for altered mental state. She may require either assisted living and/or consideration for residential facility but we will have to try and get case management involved as well to figure this out. Troponin appears normal, but I will get an EKG. Labs in a.m.
[2018-10-13] MEDS: LEVOTHYROXINE 50 MCG TABLET PO SCH (05:45)
--- NOTE | 2018-10-13 06:35 | EKG ---
[address] [address] Measurements Intervals [place] Rate: 81 P: 63 HI: 147 QRS: -2 QRSD: 104 T: 15 QT: 472 QTc: 510 Interpretive Statements SINUS RHYTHM WITH OCCASIONAL VENTRICULAR PREMATURE COMPLEXES WITH FREQUENT SUPRAVENTRICULAR PREMATURE COMPLEXES LEFT VENTRICULAR HYPERTROPHY AND ST-T CHANGE [VOLTAGE CRITERIA PLUS ST/T ABNORMALITY] Compared to ECG 06/26/2018 16:27:18 Ventricular premature complex(es) now present Sinus arrhythmia no longer present Inferolateral ischemia still present ST (T wave) deviation still present Electronically Signed On 10-13-18 08:15:42 MDT by Darrius Shelton MD [email or web address]
[2018-10-13 07:52] LABS: BASOPHILS # (AUTO) 0.01 10*3/UL; BASOPHILS % (AUTO) 0.1 % (0-1); EOSINOPHILS # (AUTO) 0.02 10*3/UL; EOSINOPHILS % (AUTO) 0.2 % (0-8); Hematocrit [HCT] 46.5 % (37.0-47.0); Hemoglobin [HGB] 16.8 g/dL (12.0-16.0); LYMPHOCYTES # (AUTO) 2.24 10*3/uL; MEAN CORPUSCULAR HEMOGLOBIN 31.3 PG (27-31); MEAN CORPUSCULAR HGB CONC 36.1 g/dL (33-37); MEAN CORPUSCULAR VOLUME 86.8 FL (81-99); MEAN PLATELET VOLUME 10.2 FL (7.4-12.2); MONOCYTES # (AUTO) 1.39 10*3/UL (0.3-0.8); MONOCYTES % (AUTO) 11.5 % (5-15); NEUTROPHILS # (AUTO) 8.38 10*3/UL; NEUTROPHILS % (AUTO) 69.4 % (50-80); RED BLOOD COUNT 5.36 10^6/uL (4.20-5.40)
[2018-10-13 07:54] LABS: PLATELET MORPHOLOGY COMMENT NORMAL MORPHOLOGY (NORM); RBC MORPHOLOGY COMMENT NORMAL MORPHOLOGY (NORM); WBC MORPHOLOGY COMMENT NORMAL MORPHOLOGY (NORM)
[2018-10-13 07:58] LABS: BLOOD UREA NITROGEN 31 mg/dL (7-22); BUN/CREATININE RATIO 14.76 (6-20); SERUM ALBUMIN 4.6 g/dL (3.5-4.8)
[2018-10-13] MEDS: TIMOLOL OP SCH ×2 (09:34→20:36)
[2018-10-13] MEDS: Apixaban Tab 2.5 MG TABLET PO SCH ×2 (09:34→20:37)
[2018-10-13] MEDS: OMEPRAZOLE 20 MG CAPSULE PO SCH (09:34)
[2018-10-13] MEDS: BRIMONIDINE TARTRATE OP SCH ×2 (09:34→20:36)
[2018-10-13] MEDS: Potassium Chloride Tab 10 MEQ TAB PO SCH (09:34)
[2018-10-13] MEDS: ASPIRIN EC 81 MG TABLET PO SCH (09:35)
[2018-10-13] MEDS: METOPROLOL SUCCINATE 50 MG SR 24H TABLET PO SCH (09:35)
[2018-10-13] MEDS: CHOLECALCIFEROL 1000 IU TABLET PO SCH (09:35)
[2018-10-13] MEDS: [UNRECOGNIZED DRUG - OTHER] OP SCH (09:36)
[2018-10-13] MEDS: LATANOPROST OP SCH (09:36)
--- NOTE | 2018-10-13 09:46 | EKG ---
[address] [address] Measurements Intervals [place] Rate: 96 P: 42 IA: 147 QRS: 38 QRSD: 103 T: 207 QT: 439 QTc: 493 Interpretive Statements SINUS RHYTHM WITH FREQUENT SUPRAVENTRICULAR PREMATURE COMPLEXES ST DEVIATION AND MODERATE T-WAVE ABNORMALITY, CONSIDER LATERAL ISCHEMIA ST DEVIATION AND MODERATE T-WAVE ABNORMALITY, CONSIDER INFERIOR ISCHEMIA Compared to ECG 10/12/2018 17:14:4 T-wave abnormality now present Possible ischemia now present Ventricular premature complex(es) no longer present Left ventricular hypertrophy no longer present ST (T wave) deviation no longer present Electronically Signed On 10-13-18 09:58:26 MDT by David Krueger [email or web address]
[2018-10-13] MEDS: Sodium Chloride 0.9% 1,000 ML PRIMARY IV SCH ×2 (09:48→20:39)
[2018-10-13] MEDS: D5-1/2NS + 20mEq KCL 1,000 ML PRIMARY IV SCH (09:49)
--- NOTE | 2018-10-13 11:05 | DI ---
CT Abdomen/Pelvis WO Contrast 10/13/2018 10:03 AM History: [facility] DI ^AMS, renal failure, question stone. Comparison: None. Technique: Imaging was performed with a multi-detector CT scanner. Data acquisition was obtained from the dome of the diaphragm through the pubic symphysis without oral or intravenous contrast material. Multiplanar reformations were performed. Findings: There are no radiopaque renal, ureteral, or bladder stones identified. There is no hydronep hrosis or perinephric stranding. There is a Barton catheter in the decompressed urinary bladder. A sm all amount of air is present in the bladder, an expected finding following recent catheter placement. Radiopaque material layering in the dependent gallbladder is most likely small stones. Further evalua tion of the abdomen shows normal CT appearance of the visualized portions of the liver, spleen, adren al glands, and pancreas. Hollow viscus organs demonstrate normal course and caliber. Is absent. The a dnexa are unremarkable, though better evaluated with pelvic ultrasound. Vascular structures are intac t with atheromatous aortoiliac. There is no free intraperitoneal air or fluid. There is bibasilar dependent atelectasis. The lung bases are otherwise clear. There is mild thickenin g and calcification along the left pericardium. There is a moderate-sized hiatal hernia. The osseous structures are notable for a subacute right posterior 11th and 12th rib fractures. There is multilevel degenerative disc disease. The patient is status post median sternotomy. Impression: 1. A Barton catheter is in the decompressed urinary bladder. No urolithiasis or CT evidence of obstruc tive uropathy. 2. Cholelithiasis without CT evidence of acute cholecystitis. 3. Mild thickening and calcification along the left pericardium. 4. Subacute right posterior 11th and 12th rib fractures.
[2018-10-13 11:13] LABS: HEMOGLOBIN A1C 5.22 % (4.2-6.0)
[2018-10-13] MEDS: ONDANSETRON 4 MG/2 ML VIAL IVP PRN ×2 (11:28→16:08)
[2018-10-13 15:19] LABS: BLOOD UREA NITROGEN 30 mg/dL (7-22); BUN/CREATININE RATIO 18.75 (6-20)
[2018-10-13] MEDS ORDERED: METOPROLOL TARTRATE 5 MG/5 ML VIAL IVP ONE (15:49)
[2018-10-13] MEDS ORDERED: HYDRALAZINE 20 MG/1 ML IVP ONE (16:25)
--- NOTE | 2018-10-13 16:37 | PT.PROG ---
Progress Note Progress Note: on hold per nursing due to high BP
[2018-10-13] MEDS ORDERED: LevETIRAcetam Tab 500 MG TABLET PO ONE (16:51)
[2018-10-13] MEDS: LATANOPROST EACH EYE SCH (20:37)
[2018-10-13] MEDS: [UNRECOGNIZED DRUG - OTHER] EACH EYE SCH (20:37)
[2018-10-13] MEDS: LevETIRAcetam Tab 500 MG TABLET PO SCH (20:37)
[2018-10-14 01:25] LABS: 24 HOUR URINE CREA CONCENTR 55.8 mg/dL
[2018-10-14] MEDS: LEVOTHYROXINE 50 MCG TABLET PO SCH (05:39)
[2018-10-14] MEDS: OMEPRAZOLE 20 MG CAPSULE PO SCH (07:05)
[2018-10-14] MEDS: Sodium Chloride 0.9% 1,000 ML PRIMARY IV SCH (07:06)
[2018-10-14 08:05] LABS: BLOOD UREA NITROGEN 27 mg/dL (7-22); BUN/CREATININE RATIO 19.28 (6-20)
[2018-10-14] MEDS: Potassium Chloride Tab 10 MEQ TAB PO SCH (09:20)
[2018-10-14] MEDS: LevETIRAcetam Tab 500 MG TABLET PO SCH ×2 (09:20→21:20)
[2018-10-14] MEDS: [UNRECOGNIZED DRUG - OTHER] EACH EYE SCH ×2 (09:20→21:22)
[2018-10-14] MEDS: LATANOPROST EACH EYE SCH ×2 (09:20→21:22)
[2018-10-14] MEDS: ASPIRIN EC 81 MG TABLET PO SCH (09:20)
[2018-10-14] MEDS: Apixaban Tab 2.5 MG TABLET PO SCH ×2 (09:20→21:20)
[2018-10-14] MEDS: TIMOLOL OP SCH ×2 (09:20→20:28)
[2018-10-14] MEDS: METOPROLOL SUCCINATE 50 MG SR 24H TABLET PO SCH (09:20)
[2018-10-14] MEDS: BRIMONIDINE TARTRATE OP SCH ×2 (09:20→20:28)
[2018-10-14] MEDS: CHOLECALCIFEROL 1000 IU TABLET PO SCH (09:20)
--- NOTE | 2018-10-14 09:26 | DI ---
MRI Brain WO Contrast 10/14/2018 7:00 AM History: [facility] DI ^altered mental status Comparison: CT head 10/12/2018. Technique: Routine noncontrast multiecho multiplanar MR imaging of the brain was performed. Findings: There is no evidence of acute or chronic hemorrhage. No extra-axial fluid collections are p resent. There is no focal mass or mass-effect. The ventricles and cisterns are mildly prominent consi stent with age related atrophy. There is normal anatomic appearance of the midline structures. Moder ate T2/FLAIR hyperintensities are noted in the subcortical and deep white matter, becoming confluent in the periventricular region. There is no diffusion restriction. The cerebral vasculature is grossly normal in appearance. The orbits and paranasal sinuses are unremarkable. Impression: 1. No MR evidence of acute intracranial pathology. 2. Moderate T2/FLAIR hyperintensities are present within the periventricular, subcortical, and deep w luis eduardo matter, a nonspecific finding that is most commonly associated with chronic small vessel ischemi a in this age group. Clinical correlation is recommended.
--- NOTE | 2018-10-14 16:28 | PT.PROG ---
Progress Note Progress Note: S. Patient stated she would go to the therapy gym. O. Patient ambulated 175 feet to the therapy gym where she used the arm bike x 5 minutes, then performed seated long arc quads, heel toe raises, ball squeezes, clam shells, resisted knee flexion all x 10. Sit to stands x 5. Patient was left with OT for further therapy. A. Patient tolerated therapy fair, she lost her balance during ambulation to the therapy gym and required mod assist to correct herself, she would continue to benefit from skilled therapy to increase strength, endurance and safety. P. Continue POC.
--- NOTE | 2018-10-14 16:47 | OT.PROG ---
Progress Note Progress Note: S: pt was accompanied by her daughter. She thinks she is feeling well. O: pt was seen in her room and completed donning of LE with min A mainly needing assistance with catheter. She completed sit to stand with min A and completed transfer downstairs entire way taking no break. She completed MOCA: Visuaspatial: 3/5 namin/3 attention: 4/6 Language: 2/3 Abstraction: 0/2 delayed recall 0/5 Orientation: /6 A: results from MOCA with a score of 16 place her in MOderate impairment. Short term memory is impaired and although orientation scored well, she did take longer to come up with answers. P: Continue per POC.
--- NOTE | 2018-10-14 21:05 | PDOC(PROG) ---
Date of Service: 10/14/18 Time of Service: 20:59 Interval History: Seen and evaluated earlier today. Discussed with daughter at bedside. Patient alert, oriented to person and place, not necessarily to time or situation however. She could answer questions. Much more appropriately following directions such as being able to take deep breaths on command. She was able to participate with physical therapy. In discussion with the patient, and her daughter, we think pursuing a swing bed makes a lot of sense to try and arrange possibly more help at home or to evaluate for whether or not assisted living may make more sense than living at home independently. Objective : Data - Labs CBC and BMP: 10/13/18 07:53 10/14/18 07:30 Additional Lab Results: 10/12/18 10/13/18 18:25 01:00 Urine Protein >300 A Urine Glucose (UA) 250 Urine Ketones 40 Urine Occult Blood Moderate H Ur 24 Hour Volume 1100 Ur Total Protein 24 Hr 363 U Tot Protein 24h, Calc 3993 H - Imaging MRI Status: Report Reviewed by Me (I reviewed the MRI scan of the brain report. Microvascular disease noted.) Objective : Exam - General General Appearance: No Acute Distress, Cooperative Additional General Exam Details: Vital Signs - Last Taken Temperature 97.0 F 10/14/18 19:18 Pulse Rate 72 10/14/18 19:18 Respiratory Rate 16 10/14/18 19:18 Blood Pressure 123/71 10/14/18 19:18 Pulse Ox 97 10/14/18 19:18 - Eye Eye Exam: No Scleral Icterus - ENT ENT Exam: Mucous Membranes Moist - Neck Neck Exam: JVP is not Raised - Respiratory Respiratory Exam: Clear to Auscultation - Bilaterally, Breathing Non Labored - Cardiovascular Cardiovascular Exam: No Clicks, No Gallops, No Rubs, Irregular Rhythm, No JVD - GI/Abdominal GI/Abdominal Exam: Normal Bowel Sounds, Non Tender, Non Distended, Soft - Extremities Extremities Exam: No Clubbing Present, No Edema Present, No Cyanosis Present - Neurological Neurological Exam: Alert, No Facial Droop, Speech Intact / Clear, Moves All Extremities Equally Assessment and Plan - Patient Problems (1) Seizure disorder Current Visit: Yes Status: Acute Code(s): G40.909 - Epilepsy, unspecified, not intractable, without status epilepticus (2) Proteinuria Current Visit: Yes Status: Acute Code(s): R80.9 - Proteinuria, unspecified Qualifiers: Proteinuria type: unspecified Qualified Code(s): R80.9 - Proteinuria, unspecified (3) Aortic valve stenosis Current Visit: Yes Status: Chronic Onset Date: 05/20/12 Code(s): I35.0 - Nonrheumatic aortic (valve) stenosis Qualifiers: Cardiac valve disease etiology: etiology unspecified Qualified Code(s): I35.0 - Nonrheumatic aortic (valve) stenosis (4) Atrial fibrillation Current Visit: Yes Status: Chronic Onset Date: 07/23/15 Code(s): I48.91 - Unspecified atrial fibrillation Qualifiers: Atrial fibrillation type: chronic Qualified Code(s): I48.2 - Chronic atrial fibrillation (5) Benign hypertension Current Visit: Yes Status: Chronic (6) CHF (congestive heart failure) Current Visit: Yes Status: Chronic Code(s): I50.9 - Heart failure, unspecified Qualifiers: Heart failure type: systolic Heart failure chronicity: acute on chronic Qualified Code(s): I50.23 - Acute on chronic systolic (congestive) heart failure (7) Dementia Current Visit: Yes Status: Chronic Code(s): F03.90 - Unspecified dementia without behavioral disturbance Qualifiers: Dementia type: Alzheimer's disease Alzheimer's disease onset: late-onset Dementia behavioral disturbance: without behavioral disturbance Qualified Code(s): G30.1 - Alzheimer's disease with late onset; F02.80 - Dementia in other diseases classified elsewhere without behavioral disturbance (8) Essential hypertension Current Visit: Yes Status: Chronic Onset Date: 05/06/11 Code(s): I10 - Essential (primary) hypertension (9) GERD (gastroesophageal reflux disease) Current Visit: Yes Status: Chronic Onset Date: 03/15/13 Code(s): K21.9 - Gastro-esophageal reflux disease without esophagitis Qualifiers: Esophagitis presence: esophagitis presence not specified Qualified Code(s): K21.9 - Gastro-esophageal reflux disease without esophagitis (10) Altered mental status Current Visit: Yes Status: Resolved Code(s): R41.82 - Altered mental status, unspecified Qualifiers: Altered mental status type: disorientation Qualified Code(s): R41.0 - Disorientation, unspecified - Assessment / Plan Additional Assessment/Plan Details: Overall, I suspect the patient has an underlying seizure disorder in the setting of her dementia as she responded very well to Keppra. I explained the risks and benefits of Keppra including the very rare side effect of potential Liang- Nikhil syndrome and the patient and her daughter are willing to continue his medication. We will continue to 250 mg by mouth twice a day. Arranging for neurology evaluation and I also sent MRI scans to [facility] in preparation for that eventual evaluation. There was some concern that there could be amyloid angiopathy and my discussion with neurology and may curbside them again tomorrow to review MRI scans pushed up for further clarification, particularly with her atrial fibrillation and stroke prevention with novel oral anticoagulant therapy as well as aspirin. Given the proteinuria at near nephrotic range protein spilling, I will go ahead get a microscopic urinalysis, and serum and urine electrophoresis studies and light chain studies (serum). Multiple myeloma would be a possible etiology of the above, but I'm not sure that the patient would be a great candidate for any therapies. 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 PT and OT. Swing bed. Hopefully we can get the patient back to her home with more home health of some type, but this could turn into a situation, based on advancing dementia, that may be requiring assisted living. With additional therapy my hope is to avoid assisted living. Blood pressures were quite labile with elevations yesterday and now normalized today. Stop potassium. Stop IV fluids. Discontinue catheter. Telemetry monitoring to be discontinued as well.
[2018-10-15] MEDS: LEVOTHYROXINE 50 MCG TABLET PO SCH (05:26)
[2018-10-15] MEDS: OMEPRAZOLE 20 MG CAPSULE PO SCH (06:58)
[2018-10-15] MEDS: Sodium Chloride 0.9% 1,000 ML PRIMARY IV SCH (07:09)
[2018-10-15] MEDS: TIMOLOL OP SCH ×2 (08:25→21:57)
[2018-10-15] MEDS: BRIMONIDINE TARTRATE OP SCH ×2 (08:25→21:57)
[2018-10-15] MEDS: Apixaban Tab 2.5 MG TABLET PO SCH ×2 (08:26→21:58)
[2018-10-15] MEDS: ASPIRIN EC 81 MG TABLET PO SCH (08:26)
[2018-10-15] MEDS: CHOLECALCIFEROL 1000 IU TABLET PO SCH (08:26)
[2018-10-15] MEDS: LATANOPROST EACH EYE SCH ×2 (08:26→22:31)
[2018-10-15] MEDS: LevETIRAcetam Tab 500 MG TABLET PO SCH ×2 (08:26→21:58)
[2018-10-15] MEDS: [UNRECOGNIZED DRUG - OTHER] EACH EYE SCH ×2 (08:26→22:31)
[2018-10-15] MEDS: METOPROLOL SUCCINATE 50 MG SR 24H TABLET PO SCH (08:26)
[2018-10-15 09:51] LABS: BILIRUBIN,URINE NEGATIVE (NEG); CLARITY,URINE CLOUDY (CLEAR); COLOR,URINE YELLOW; GLUCOSE, URINE (UA) NEGATIVE (NEG); OCCULT BLOOD,URINE LARGE (NEG); PH,URINE 5.5 (5.0-8.5); PROTEIN,URINE TRACE mg/dl (NEG); UROBILINOGEN,URINE 0.2 mg/dL (0.2)
[2018-10-15 09:54] LABS: URINE SAMPLE TYPE CLEAN CATCH URINE
[2018-10-15 09:55] LABS: BACTERIA,URINE MANY; RBC,URINE 50-60 /hpf; WBC,URINE >100
--- NOTE | 2018-10-15 11:59 | PTI REPORT ---
Thank you for the referral of Sara Cortes JaydenLeslie. She was seen on 10/14/18 for an inpatient evaluation secondary to altered mental state and weakness. SUBJECTIVE: The patient is an 88-year-old female who appears very confused. Her daughter is present during our evaluation. Throughout our evaluation the patient continues to think that she is in [place] and she is not sure why she is here and she doesn't remember how she got to the hospital. When asked where she lives, she does know that she lives in [place] and will correct herself at times to know that she is at the [facility], but other times she continues to ask why she is down in [place]. The patient reports that she lives by herself in a home here in town. Her daughter does verify that she has gone back to living by herself. She was living with her daughter back in April of this last year when she fell and broke her ankle, but since that time the patient has gotten better and has been back to living on her own. She has stairs to get inside her house and within her house. The patient states that she has not been using any type of assistive device and has been getting around well and denies any recent falls. The patient reports that she is independent with ADLs. Her daughter does states that she is helping prepare the medications, but the patient is responsible for taking those at the correct time. The patient does state that she is driving to the [employer] for lunch. PAST MEDICAL HISTORY: Past medical history can be found in the patient's medical record. OBJECTIVE FINDINGS: General observations: The patient was in bed upon PT arrival. The patient is very confused as to where she is at and she continues to think that she is in [place]. Even after being corrected, within a minute or two the patient will ask again why she is down in [place]. Bed mobility: The patient was able to transfer from supine to seated edge of bed with stand by assist. Strength: Once seated edge of bed, the patient has a tendency to fall backward and demonstrates very poor core strength, especially during our manual muscle test for her lower extremities as the patient had to constantly be reminded to sit back up as every time the therapist would push on her leg, her trunk would go back. Leg strength is 3/5 bilaterally. Transfers: The patient was able to transfer from sitting to standing position. She does require maximal verbal cueing to perform her transfers and for attention to task. The patient required hand hold assist x2 on the walker with standing. During our first stand, the patient stood for approximately 20 seconds before she plopped back down into the bed as she stated that she got dizzy. The patient did have a recovery time and we performed another sit to stand. This time the patient still complained of dizziness but was doing better. Ambulation: The patient was able to ambulate 20 feet with a front wheeled walker and contact guard assist x2 and was able to transfer into her chair. ASSESSMENT: The patient has fair rehab potential secondary to her age and past medical history. Problem List: Decreased endurance/activity tolerance Confusion Generalized weakness Short-Term Goals: To be met by discharge from inpatient: Patient will be able to transfer from bed to stand safely and independently. Patient will be able to ambulate at least 150 feet safely and independently with least restrictive assistive device. Patient will be able to ascend and descend one flight of stairs safely and independently. Patient will be able to tolerate 30 minutes of physical therapy activity for strengthening and balance. Long-Term Goals: To be met following discharge from inpatient: Patient may be an appropriate candidate for swingbed and for further evaluating her cognitive status to see if she is safe to be living by herself as she was very confused during our evaluation and is very unsafe with her transfers at this time. TREATMENT PLAN: Patient will be seen B.I.D during the week and one time per day over the weekend as an inpatient to address the above goals and objectives. INITIAL TREATMENT: Treatment today consisted of the initial evaluation. Following treatment the patient was left in chair with chair alarm set and call light within reach. [facility]
--- NOTE | 2018-10-15 12:19 | OT.PROG ---
Progress Note Progress Note: OT Daily Note 10/15/18 S: pt reports she is feeling better today. She states she does not really feel like doing therapy right now although agreed to go ahead and get it over with. O: pt completed supine to sit EOB with CGA. pt demonstrated poor static seated balance while she was getting dressed, often having to correct her posture. pt required mod A for UE/LE dressing due to her poor balance in sitting. pt was able to complete a sit to stand with CGA. pt ambulated with a FWW about 60 feet and then wheeled down to therapy to complete PT services. A: pt is doing well her cognition is questionable and does not always make since within her sentences. living alone is questionable. P: cont per POC
--- NOTE | 2018-10-15 13:48 | PDOC(PROG) ---
Date of Service: 10/15/18 Time of Service: 13:43 Interval History: no pains today, alert, examined eating lunch no nausea or vomiting no chest pain Objective : Data - Labs CBC and BMP: 10/13/18 07:53 10/14/18 07:30 Additional Lab Results: 10/15/18 09:00 Ur Leukocyte Esterase Large Urine RBC 50-60 Urine WBC >100 Ur Squamous Epith Cells None Ur Renal Epithelial Cell None Urine Crystals None Urine Bacteria Many Urine Casts None Urine Mucus None Urine Trichomonas None Urine Yeast None Objective : Exam - General General Appearance: No Acute Distress, Cooperative Additional General Exam Details: Vital Signs - Last Taken Temperature 97.4 F 10/15/18 11:14 Pulse Rate 63 10/15/18 11:14 Respiratory Rate 18 10/15/18 11:14 Blood Pressure 102/55 10/15/18 11:14 Pulse Ox 95 10/15/18 11:14 - Eye Eye Exam: No Scleral Icterus - ENT ENT Exam: Mucous Membranes Moist - Neck Neck Exam: JVP is not Raised - Respiratory Respiratory Exam: Clear to Auscultation - Bilaterally, Breathing Non Labored - Cardiovascular Cardiovascular Exam: No Clicks, No Gallops, No Rubs, Irregular Rhythm, Systolic Murmur - GI/Abdominal GI/Abdominal Exam: Normal Bowel Sounds, Non Tender, Non Distended, Soft - Extremities Extremities Exam: No Clubbing Present, No Edema Present, No Cyanosis Present - Neurological Neurological Exam: Alert, No Facial Droop, Speech Intact / Clear, Moves All Extremities Equally, Altered Assessment and Plan - Patient Problems (1) Seizure disorder Current Visit: Yes Status: Acute Code(s): G40.909 - Epilepsy, unspecified, not intractable, without status epilepticus (2) Proteinuria Current Visit: Yes Status: Acute Code(s): R80.9 - Proteinuria, unspecified Qualifiers: Proteinuria type: unspecified Qualified Code(s): R80.9 - Proteinuria, unspecified (3) Aortic valve stenosis Current Visit: Yes Status: Chronic Onset Date: 05/20/12 Code(s): I35.0 - Nonrheumatic aortic (valve) stenosis Qualifiers: Cardiac valve disease etiology: etiology unspecified Qualified Code(s): I35.0 - Nonrheumatic aortic (valve) stenosis (4) Atrial fibrillation Current Visit: Yes Status: Chronic Onset Date: 07/23/15 Code(s): I48.91 - Unspecified atrial fibrillation Qualifiers: Atrial fibrillation type: chronic Qualified Code(s): I48.2 - Chronic atrial fibrillation (5) Benign hypertension Current Visit: Yes Status: Chronic (6) CHF (congestive heart failure) Current Visit: Yes Status: Chronic Code(s): I50.9 - Heart failure, unspecified Qualifiers: Heart failure type: systolic Heart failure chronicity: acute on chronic Qualified Code(s): I50.23 - Acute on chronic systolic (congestive) heart failure (7) Dementia Current Visit: Yes Status: Chronic Code(s): F03.90 - Unspecified dementia without behavioral disturbance Qualifiers: Dementia type: Alzheimer's disease Alzheimer's disease onset: late-onset Dementia behavioral disturbance: without behavioral disturbance Qualified Code(s): G30.1 - Alzheimer's disease with late onset; F02.80 - Dementia in other diseases classified elsewhere without behavioral disturbance (8) Essential hypertension Current Visit: Yes Status: Chronic Onset Date: 05/06/11 Code(s): I10 - Essential (primary) hypertension (9) GERD (gastroesophageal reflux disease) Current Visit: Yes Status: Chronic Onset Date: 03/15/13 Code(s): K21.9 - Gastro-esophageal reflux disease without esophagitis Qualifiers: Esophagitis presence: esophagitis presence not specified Qualified Code(s): K21.9 - Gastro-esophageal reflux disease without esophagitis (10) Altered mental status Current Visit: Yes Status: Resolved Code(s): R41.82 - Altered mental status, unspecified Qualifiers: Altered mental status type: disorientation Qualified Code(s): R41.0 - Disorientation, unspecified - Assessment / Plan Additional Assessment/Plan Details: swing bed tomorrow? continue PT and OT discussed with cardiology--risk for stroke is high, so likely maintain eliquis arranged outpatient neurology follow up for seizure and possible amyloid angiopathy and renal follow up for high proteinuria labs pending for multiple myeloma work up culture urine. overall, better
--- NOTE | 2018-10-15 14:28 | OTI REPORT ---
Thank you for the referral of Sara Cortes JaydenLeslie. She was seen on 10/14/18 for an occupational therapy inpatient evaluation secondary to altered mental status and generalized weakness. SUBJECTIVE: The patient is an 88-year-old female. The patient had difficulty providing an accurate prior level of function and history secondary to her altered mental status; however, the patient's daughter was available at the time of the evaluation and was able to provide information. It was found that the patient lives in [place], [place]. At prior level of function the patient was living independently at home. She has several stairs to get into the house and within the home as well. The patient was reportedly at home by herself when her daughter found her. She was very confused and weak and was brought to the hospital. According to the patient and the patient's daughter, the patient was driving at prior level of function and living independently by herself, completing all ADLs to include dressing, showering, cleaning, etc. The patient does report that she was not eating meals at home but was driving to the [employer] everyday around lunch time to eat meals. The patient did have an ankle fracture back in April and has been in and out of the hospital over the last couple of years. The patient does have a history of falls; however, none within the last three months per her report. PAST MEDICAL HISTORY: Past medical history can be found in the patient's medical record. OBJECTIVE FINDINGS: General observations: The patient was very confused during evaluation. She was not oriented to place, reason for hospitalization, or date. The patient was oriented to the month but she was not oriented to the year. The patient was very confused about her location. She kept repeating that she was in [place]; however, she was reminded that she was in [place] and approximately two to three minutes later, the patient was unable to recall that she was in [place]. Range of motion: Upper extremity range of motion is approximately 75% of full for the shoulders and within functional limits for the elbows, hands, and wrists. Strength: Upper extremity strength is 3/5 bilaterally. Bed mobility: The patient did demonstrate the ability to move from supine to sitting edge of bed with moderate assistance x1. Balance: The patient had difficulty sitting edge of bed and required min assist to maintain sitting static balance. Sitting static balance is going to be rated as poor as well as dynamic standing and sitting balance. Transfers: The patient was given a front wheeled walker to perform functional mobility tasks. She demonstrated the ability to stand from edge of bed with contact guard assist; however, required frequent verbal cues to maintain standing and then had difficulty maintaining standing. She did sit back down on the bed without warning. ASSESSMENT: The patient demonstrated very poor safety awareness throughout evaluation and was confused about placement of her catheter. Problem List: Cognition Decreased safety awareness/judgement Decreased upper extremity strength Decreased ability to complete ADLs Occupational Therapy Goals: To be met by discharge from inpatient: Patient will increase bilateral upper extremity strength by one manual muscle grade. Patient will participate in cognitive screening and cognitive testing tasks to ensure safety. Patient will be able to complete a toileting task with contact guard assist for the transfer, contact guard assist for toilet hygiene, and contact guard assist for clothing management. Patient will demonstrate the ability to complete lower and upper extremity dressing tasks with set up assistance and verbal cues. Patient will demonstrate the ability to complete a seated showering task with contact guard assist and verbal cues. Patient will demonstrate the ability to complete all functional transfers with contact guard assist only for safety. Patient will increase activity tolerance and standing balance to stand at the sink with no losses of balance x5 minutes to complete standing grooming tasks. TREATMENT PLAN: Patient will be seen B.I.D during the week and one time per day over the weekend as an inpatient to address the above goals and objectives. The patient may be a good candidate for swingbed status and needs definite cognitive screening prior to returning home to live independently. At this time the patient would not be able to safely perform ADLs or medication management tasks. The patient's daughter does report that she sets up the patient's weekly medicines; however, the patient is in charge of taking the pills on a daily basis. The patient's daughter does check in frequently. INITIAL TREATMENT: Treatment today consisted of the occupational therapy initial evaluation only. ADRIEN
--- NOTE | 2018-10-15 15:05 | OT.PROG ---
Progress Note Progress Note: S: pt stated that she was tired but agreed to therapy. O: tx consisted of functional transfer out of recliner with MIN A, functional ambulation x 60' with FWW and CGA for safety, functional transfer to w/c with MIN A for safety, UBE x8 min with MOD VCs to remain on task, UE yellow RTB exercises of biceps, chest pulls and triceps x10 each. A: pt tolerated session fairly well. pt is weak but is slowly improving in activity tolerance. P: continue POC
--- NOTE | 2018-10-15 15:54 | PT.PROG ---
Progress Note Progress Note: S. Patient stated she would go to the therapy gym. O. Patient ambulated 80 feet to the wheelchair and was wheeled to the therapy gym where she used the nu-step x 5 minutes, then performed seated long arc quads, heel toe raises, ball squeezes, clam shells, resisted knee flexion all x 10. Sit to stands x 5. Patient was left with OT for further therapy. A. Patient tolerated therapy fair, she continues to require min assist with transfers and ambulation, she would continue to benefit from skilled therapy to increase strength, endurance and safety. P. Continue POC.
--- NOTE | 2018-10-15 15:57 | PT.PROG ---
Progress Note Progress Note: S. Patient stated she would go to the therapy gym. O. Patient ambulated 80 feet to the wheelchair and was wheeled to the therapy gym where she performed seated long arc quads, heel toe raises, ball squeezes, clam shells, resisted knee flexion all x 10 with yellow thera band, then performed Sit to stands x 10. Patient used the nu-step x 5 minutes then ambulated 80 feet to the wheelchair and was returned to her room where she was left in her chair with alarm and call light. A. Patient tolerated therapy fair, She continues to require min assist with ambulation and transfers, she would continue to benefit from skilled therapy to increase strength, endurance and safety. P. Continue POC.
[2018-10-16 04:31] VITALS: O2SAT 96
[2018-10-16] MEDS: LEVOTHYROXINE 50 MCG TABLET PO SCH (05:00)
[2018-10-16 06:41] VITALS: BP 146/90; RESP 18; TEMP 97.2
[2018-10-16] MEDS: METOPROLOL SUCCINATE 50 MG SR 24H TABLET PO SCH (08:13)
[2018-10-16] MEDS: CHOLECALCIFEROL 1000 IU TABLET PO SCH (08:13)
[2018-10-16] MEDS: OMEPRAZOLE 20 MG CAPSULE PO SCH (08:13)
[2018-10-16] MEDS: Apixaban Tab 2.5 MG TABLET PO SCH (08:13)
[2018-10-16] MEDS: ASPIRIN EC 81 MG TABLET PO SCH (08:13)
[2018-10-16] MEDS: LevETIRAcetam Tab 500 MG TABLET PO SCH (08:13)
--- NOTE | 2018-10-16 09:59 | DCSUMMARY ---
Hospitalization Summary Admit Date: 10/12/2018 Discharge Date: 10/16/18 Primary Diagnosis:: probable seizure disorder, altered mental status, azam Hospital Course: This very pleasant 88-year-old female with atrial fibrillation, dementia, history of valve replacement, amongst other medical issues who came in altered and confused. An infectious workup was negative both on images, cultures, and blood work. Ultimately her history suggested seizures. We did do a brain MRI scan no evidence of stroke. It's not clear if she is having amyloid angiopathy, we did arrange a neurology visit. Follow up with Dr. Garcia on December 16, check in at 2:30 p.m. for a 3:00 p.m. appointment. The patient was placed on Keppra and she had an overnight change in her mental status. She was kept on to 50 mg by mouth twice a day. I discussed risks and benefits including the rare potential of Liang-Nikhil syndrome to the patient and her daughter. This patient was weak and deconditioned, we felt the best thing to do would be to continue physical therapy and occupational therapy and we had a swing bed evaluation and the patient qualified. In addition this give us a little bit more time to determine whether the patient was stabilized enough to be able to go home with additional physical therapy and occupational therapy and home health nursing. The patient may end up needing assisted living and just not sure yet. Interestingly, we did find that the patient has proteinuria. She does not have a lot of other associations with proteinuria such as hyaline casts or other sediments, but she did have red blood cells on her urinalysis. We arranged for renal evaluation as well for this proteinuria. Her creatinine peaked at 2.1 during the hospital stay and I am not clear as to why that happened, but her creatinine improved with IV fluids and is now down to 1.4 which is about her baseline. I did send some studies off for electrophoresis of urine and serum to try and help determine whether or not she might have multiple myeloma or something similar. The studies are pending. Today, no chest pain, shortness breath, nausea or vomiting. Assessment and Plan: 1. As per discharge assessments noted 2. Disposition: Patient is discharged to swing bed 3. Condition on discharge, stable and improved. 4. Diet: regular diet 5. Activities: Continue PT and OT 6. Follow-Up: 1. Hospital service will continue to follow the patient on the swing bed 2. Neurology evaluation arranged 3. Renal evaluation arranged 7. Medications at the Time of Discharge: [facility] and can be reviewed there. 8. Time, care, counseling and coordination of care for this discharge is greater than 30 minutes. Exam - Vitals Vital Signs: Vital Signs Temperature 97.2 F Temperature Source Temporal Artery Scan Pulse Rate [Pulse Oximeter] 80 Pulse Rate [Telemetry] 68 Pulse Rate 84 Respiratory Rate 18 Blood Pressure [Right Arm] 146/90 Blood Pressure [Left Arm] 165/89 Blood Pressure 194/105 Pulse Ox 96 Oxygen Flow Rate 1 Oxygen Delivery Method Room Air Height 5 ft 6 in Weight 128 lb - General General Appearance: No Acute Distress, Cooperative - Eye Eye Exam: POSITIVE: No Scleral Icterus - ENT ENT Exam: POSITIVE: Mucous Membranes Moist - Neck Neck Exam: JVP is not Raised - Respiratory Respiratory Exam: POSITIVE: Clear to Auscultation - Bilaterally, Breathing Non Labored - Cardiovascular Cardiovascular Exam: POSITIVE: No Clicks, No Gallops, No Rubs, Irregular Rhythm, Systolic Murmur, No JVD - GI/Abdominal GI/Abdominal Exam: POSITIVE: Normal Bowel Sounds, Non Tender, Non Distended, Soft - Extremities Extremities Exam: POSITIVE: No Clubbing Present, No Edema Present, No Cyanosis Present - Neurological Neurological Exam: POSITIVE: Alert, No Facial Droop, Speech Intact / Clear, Moves All Extremities Equally, Altered Data Peritnent Studies: 10/12/18 10/12/18 10/12/18 17:28 17:30 17:30 WBC Hgb Hct Plt Count D-Dimer VBG pH 7.43 H VBG pCO2 34 L VBG HCO3 23 VBG Base Excess -2 Sodium Potassium Chloride Carbon Dioxide Anion Gap BUN Creatinine BUN/Creatinine Ratio Glucose Calculated Osmolality Lactic Acid 2.0 Calcium 10.1 Magnesium 1.6 Total Bilirubin 0.8 AST 37 ALT 15 Alkaline Phosphatase 120 Total Creatine Kinase 89 Troponin I Handheld C-Reactive Protein < 0.5 NT-Pro-B Natriuret Pep 15266 H Total Protein Albumin Globulin Albumin/Globulin Ratio TSH Free T4 Urine Protein Urine Glucose (UA) Urine Ketones Urine Occult Blood Ur Leukocyte Esterase Urine RBC Urine WBC Ur 24 Hour Volume Ur Total Protein 24 Hr U Tot Protein 24h, Calc 10/12/18 10/12/18 10/12/18 17:30 17:42 17:44 WBC Hgb Hct Plt Count D-Dimer 776 H VBG pH VBG pCO2 VBG HCO3 VBG Base Excess Sodium Potassium Chloride Carbon Dioxide Anion Gap BUN Creatinine BUN/Creatinine Ratio Glucose Calculated Osmolality Lactic Acid Calcium Magnesium Total Bilirubin AST ALT Alkaline Phosphatase Total Creatine Kinase Troponin I Handheld 0.030 C-Reactive Protein NT-Pro-B Natriuret Pep Total Protein Albumin Globulin Albumin/Globulin Ratio TSH 5.66 H Free T4 1.40 Urine Protein Urine Glucose (UA) Urine Ketones Urine Occult Blood Ur Leukocyte Esterase Urine RBC Urine WBC Ur 24 Hour Volume Ur Total Protein 24 Hr U Tot Protein 24h, Calc 10/12/18 10/13/18 10/13/18 18:25 01:00 07:53 WBC 12.07 H Hgb 16.8 H Hct 46.5 Plt Count 235 D-Dimer VBG pH VBG pCO2 VBG HCO3 VBG Base Excess Sodium Potassium Chloride Carbon Dioxide Anion Gap BUN Creatinine BUN/Creatinine Ratio Glucose Calculated Osmolality Lactic Acid Calcium Magnesium Total Bilirubin AST ALT Alkaline Phosphatase Total Creatine Kinase Troponin I Handheld C-Reactive Protein NT-Pro-B Natriuret Pep Total Protein Albumin Globulin Albumin/Globulin Ratio TSH Free T4 Urine Protein >300 A Urine Glucose (UA) 250 Urine Ketones 40 Urine Occult Blood Moderate H Ur Leukocyte Esterase Urine RBC Urine WBC Ur 24 Hour Volume 1100 Ur Total Protein 24 Hr 363 U Tot Protein 24h, Calc 3993 H 10/13/18 10/14/18 10/15/18 07:53 07:30 09:00 WBC Hgb Hct Plt Count D-Dimer VBG pH VBG pCO2 VBG HCO3 VBG Base Excess Sodium 133 L Potassium 4.7 Chloride 100 Carbon Dioxide 21 L Anion Gap 12 BUN 27 H Creatinine 1.4 H BUN/Creatinine Ratio 19.28 Glucose 102 Calculated Osmolality 280.0 Lactic Acid Calcium 9.4 Magnesium Total Bilirubin 0.7 AST 33 ALT 20 Alkaline Phosphatase 96 Total Creatine Kinase Troponin I Handheld C-Reactive Protein NT-Pro-B Natriuret Pep Total Protein 7.8 Albumin 4.6 Globulin 3.2 Albumin/Globulin Ratio 1.40 TSH Free T4 Urine Protein Urine Glucose (UA) Urine Ketones Urine Occult Blood Ur Leukocyte Esterase Large Urine RBC 50-60 Urine WBC >100 Ur 24 Hour Volume Ur Total Protein 24 Hr U Tot Protein 24h, Calc Procedures: [address] [facility] [place] [id number] PH: DD: [phone] FAX: [phone] ~DIAGNOSTIC IMAGING REPORT~ Patient: Sara Herndon : 1930 Sex: F Age: 88 Exam Name: MRI Brain WO Contrast Exam Date: 10/14/18 Report # : [id number] CPT Code: 66623 EMR/MR #: [id number] Ordering: TRINY WING Admiting: TRINY WING DO Primary: Theo Del Toro MD Attending: TRINY WING DO Signed MRI Brain WO Contrast 10/14/2018 7:00 AM History: [facility] [facility] ^altered mental status Comparison: CT head 10/12/2018. Technique: Routine noncontrast multiecho multiplanar MR imaging of the brain was performed. Findings: There is no evidence of acute or chronic hemorrhage. No extra-axial fluid collections are present. There is no focal mass or mass-effect. The ventricles and cisterns are mildly prominent consistent with age related atrop hy. There is normal anatomic appearance of the midline structures. Moderate T2/FLAIR hyperintensities are noted in the subcortical and deep white matter, becoming confluent in the periventricular region. There is no diffusion restriction. The cerebral vasculature is grossly normal in appearance. The orbits and paranasal sinuses are unremarkable. Impression: 1. No MR evidence of acute intracranial pathology. 2. Moderate T2/FLAIR hyperintensities are present within the periventricular, subcortical, and deep white matter, a nonspecific finding that is most commonly associated with chronic small vessel ischemia in this age group. Clinical correlation is recommended. Dictated By: 10/14/18 0919 VAMSI ALEXIS MD. Signed By: 10/14/18 0926 VAMSI ALEXIS MD. [address] [facility] [place] [address] PH: DD: [phone] FAX: [phone] ~DIAGNOSTIC IMAGING REPORT~ Patient: O'Satinder,Sara Sophia : 1930 Sex: F Age: 88 Exam Name: CT Abdomen/Pelvis WO Contrast Exam Date: 10/13/18 Report # : [id number] CPT Code: 57184 EMR/MR #: [id number] Ordering: TRINY WING Admiting: TRINY WING DO Primary: Theo Del Toro MD Attending: TRINY WING DO ------ Signed CT Abdomen/Pelvis WO Contrast 10/13/2018 10:03 AM History: [facility] ^AMS, renal failure, question stone. Comparison: None. Technique: Imaging was performed with a multi-detector CT scanner. Data acquisition was obtained from the dome of the diaphragm through the pubic symphysis without oral or intravenous contrast material. Multiplanar reformations were performed. Findings: There are no radiopaque renal, ureteral, or bladder stones identified. There is no hydronephrosis or perinephric stranding. There is a Barton catheter in the decompressed urinary bladder. A small amount of air is present in the bladder, an expected finding following recent catheter placement. Radiopaque material layering in the dependent gallbladder is most likely small stones. Further evaluation of the abdomen shows normal CT appearance of the visualized portions of the liver, spleen, adrenal glands, and pancreas. Hollow viscus organs demonstrate normal course and caliber. Is absent. The adnexa are unremarkable, though better evaluated with pelvic ultrasound. Vascular structures are intact with atheromatous aortoiliac. There is no free intraperitoneal air or fluid. There is bibasilar dependent atelectasis. The lung bases are otherwise clear. There is mild thickening and calcification along the left pericardium. There is a moderate-sized hiatal hernia. The osseous structures are notable for a subacute right posterior 11th and 12th rib fractures. There is multilevel degenerative disc disease. The patient is status post median sternotomy. Impression: 1. A Barton catheter is in the decompressed urinary bladder. No urolithiasis or CT evidence of obstructive uropathy. 2. Cholelithiasis without CT evidence of acute cholecystitis. 3. Mild thickening and calcification along the left pericardium. 4. Subacute right posterior 11th and 12th rib fractures. Dictated By: 10/13/18 1044 VAMSI ALEXIS MD. Signed By: 10/13/18 110 VAMSI ALEXIS MD. [address] [facility] [place] [address] PH: DD: [phone] FAX: [phone] ~DIAGNOSTIC IMAGING REPORT~ Patient: JaydenZinaSatinderSara Cortes : 1930 Sex: F Age: 88 Exam Name: CT Head WO Contrast Exam Date: 10/12/18 Report # : [id number] CPT Code: 86909 EMR/MR #: [id number] Ordering: Cayden Astorga Admiting: Primary: Theo Del Toro MD Attending: Signed CT Head WO Contrast 10/12/2018 5:07 PM History: [facility] ^altered mental status Comparison: 06/26/2018. Procedure: Noncontrast CT images through the head were reviewed. Findings: There is no acute intracranial hemorrhage or extra-axial fluid collection. The ventricles are symmetric. There is mild global atrophy which is within the expected range for age. Decreased attenuation in the periventricular and subcortical white matter is consistent with moderate chronic small vessel ischemic changes. There is otherwise normal montemayor-white differentiation without focal mass or mass-effect. Atheromatous calcifications are noted in the intracranial vasculature. There are postsurgical changes of the bilateral globes. The visualized portions of the mastoid air cells are clear. There is minimal mucosal thickening along the posterior left maxillary sinus wall. Review of the osseous structures demonstrate no depressed calvarial fracture or aggressive osseous lesion. The facial soft tissues are unremarkable. Impression: 1. No acute intracranial findings. 2. Age related senescent changes as above. Dictated By: 10/12/18 1747 VAMSI ALEXIS MD. Signed By: 10/12/18 1752 VAMSI ALEXIS MD. [address] [place] [id number] PH: DD: [phone] FAX: [phone] ~DIAGNOSTIC IMAGING REPORT~ Patient: Sara Herndon : 1930 Sex: F Age: 88 Exam Name: XR CXR 1VW Exam Date: 10/12/18 Report # : [id number] CPT Code: 77680 EMR/MR #: [id number] Ordering: Cayden Astorga Admiting: Primary: Theo Del Toro MD Attending: - Signed XR CXR 1VW 10/12/2018 5:07 PM HISTORY: [facility] ^altered mental status Comparison: Portable chest x-ray 12/10/2017. CTA PE 10/11/2017. Findings: A single portable frontal view of the chest is submitted. The patient is status post median sternotomy and there is a prosthetic heart valve with a left atrial appendage occlusion device in place. Images demonstrate normal aeration without focal consolidation. There is no large pneumothorax or pleural effusion. The cardiomediastinal silhouette is within normal limits with atheromatous calcifications in the arch of the tortuous thoracic aorta. The osseous structures are not significantly changed. Convexity at the left cardiophrenic angle corresponds with a known hiatal hernia. Impression: No radiographic evidence of acute cardiopulmonary disease. Dictated By: 10/12/18 1741 VAMSI ALEXIS MD. Signed By: 10/12/18 1750 VAMSI ALEXIS MD. Patient Problems - Patient Problem List (1) Seizure disorder Current Visit: Yes Status: Acute Code(s): G40.909 - Epilepsy, unspecified, not intractable, without status epilepticus Category: Medical (2) Proteinuria Current Visit: Yes Status: Acute Code(s): R80.9 - Proteinuria, unspecified Qualifiers: Proteinuria type: unspecified Qualified Code(s): R80.9 - Proteinuria, unspecified Category: Medical (3) Aortic valve stenosis Current Visit: Yes Status: Chronic Onset Date: 05/20/12 Code(s): I35.0 - Nonrheumatic aortic (valve) stenosis Qualifiers: Cardiac valve disease etiology: etiology unspecified Qualified Code(s): I35.0 - Nonrheumatic aortic (valve) stenosis Category: Medical (4) Atrial fibrillation Current Visit: Yes Status: Chronic Onset Date: 07/23/15 Code(s): I48.91 - Unspecified atrial fibrillation Qualifiers: Atrial fibrillation type: chronic Qualified Code(s): I48.2 - Chronic atrial fibrillation Category: Medical (5) Benign hypertension Current Visit: Yes Status: Chronic Category: Medical (6) CHF (congestive heart failure) Current Visit: Yes Status: Chronic Comment: will decrease lasix to 20 bid secondary to bump in creatinine repeat xray Code(s): I50.9 - Heart failure, unspecified Qualifiers: Heart failure type: systolic Heart failure chronicity: acute on chronic Qualified Code(s): I50.23 - Acute on chronic systolic (congestive) heart failure Category: Medical (7) Dementia Current Visit: Yes Status: Chronic Code(s): F03.90 - Unspecified dementia without behavioral disturbance Qualifiers: Dementia type: Alzheimer's disease Alzheimer's disease onset: late-onset Dementia behavioral disturbance: without behavioral disturbance Qualified Code(s): G30.1 - Alzheimer's disease with late onset; F02.80 - Dementia in other diseases classified elsewhere without behavioral disturbance Category: Medical (8) Essential hypertension Current Visit: Yes Status: Chronic Onset Date: 05/06/11 Code(s): I10 - Essential (primary) hypertension Category: Medical (9) GERD (gastroesophageal reflux disease) Current Visit: Yes Status: Chronic Onset Date: 03/15/13 Code(s): K21.9 - Gastro-esophageal reflux disease without esophagitis Qualifiers: Esophagitis presence: esophagitis presence not specified Qualified Code(s): K21.9 - Gastro-esophageal reflux disease without esophagitis Category: Medical (10) Altered mental status Current Visit: Yes Status: Resolved Code(s): R41.82 - Altered mental status, unspecified Qualifiers: Altered mental status type: disorientation Qualified Code(s): R41.0 - Disorientation, unspecified Category: Medical
--- NOTE | 2018-10-16 10:05 | PT.PROG ---
Progress Note Progress Note: S: pt reports she is doing fair today. O: nsg okay'd prior to PT. pt instructed in UE red theraband all planex x 10 reach BUE. pt instructed in 1# LAQs, marches x 10 reps each. red theraband clams in seated x 10 reps, seated hamstring curls x 10 reps. seated ankle pumps x 10 reps. sit to stand x 5 reps with CGA x 1. pt instructed in standing marches x 1# x [address] hip x 10 reps 1#. pt fatigued post treatment and left in her chair with proper alarms in place and call light within reach. A: pt tolerated therapy fair, fatigued post session. continues to benefit from skilled therapy P: cont per POC
[2018-10-16 17:26] LABS: KAPPA FREE LIGHT CHAINS 3.36 mg/dL; KAPPA/LAMBDA FLC RATIO 2.55
[2018-10-19 07:20] LABS: A/G RATIO 0.82; ALP1 GLOB 0.4 g/dL (0.1-0.3); ALP2 GLOB 1.3 g/dL (0.6-1.0); GAMMA GLOBS 1.7 g/dL (0.6-1.6)
== END 2018-10-16 11:12 | disposition swing bed (61) | DRG 100 ==
LOC: ER 16:56 → MED/SURG 19:27
PROVIDERS: ADMIT Family Medicine; ATTEND Family Medicine

== ENCOUNTER 2018-12-22 10:48 | Inpatient (IN) ==
--- NOTE | 2018-12-22 11:16 | PDOC ---
Dyspnea HPI - General Chief Complaint: Dyspnea Stated Complaint: sent to er by pcp for chf Date Seen by Provider: 12/22/18 Time Seen by Provider: 11:16 Source: POSITIVE: Patient Exam Limitations: POSITIVE: No limitations Treatment Prior to Arrival: REPORTS: None Nurse's Notes Reviewed & Considered: Yes - History of Present Illness Initial Comments: This is a well-developed, well-nourished, 88-year-old female, who presents to the emergency room from her primary care provider for evaluation and admission to the hospital secondary to shortness of breath and suspected congestive heart failure. She does have shortness of breath and a rapid heart rate. She denies any headache, no sore throat, no chest pain, no nausea vomiting or diarrhea, no hematuria or dysuria, no rashes. She denies any fever chills or sweats. Patient is a very poor historian. Body Location Affected: REPORTS: Chest Timing: REPORTS: Unknown Duration: Unknown Severity: Moderate Exacerbated By: REPORTS: Exertion, Laying Flat Associated Symptoms: REPORTS: Heart Racing, Ankle Swelling Similar Symptoms Previously: No Recently seen/treated/hospitalized: No Any Prior Injuries Related to Current Complaint?: No - Patient Home Medications Home Medications: Home Medications apixaban 2.5 mg tablet 2.5 mg PO BID #60 tab 11/04/18 aspirin 81 mg tablet,delayed release 81 mg PO QDAY #30 tab 11/04/18 brimonidine-timolol 0.2 %-0.5 % eye drops 1 drp OP Q12H #10 ml 11/04/18 cholecalciferol (vitamin D3) 1,000 unit capsule 1,000 unit PO QDAY #30 cap 11/04/18 latanoprost (PF) 0.005 % eye drops 1 drp OP BID #7.5 ml 11/04/18 levothyroxine 50 mcg tablet 50 mcg PO DAILY #30 tab 11/04/18 lisinopril 20 mg tablet 20 mg PO QDAY #30 tab 11/04/18 omeprazole 20 mg capsule,delayed release 20 mg PO QDAY #90 cap 11/04/18 potassium chloride ER 10 mEq tablet,extended release 10 meq PO QDAY #90 tab 11/04/18 levetiracetam 250 mg tablet 250 mg PO BID #60 tab 12/08/18 metoprolol succinate ER 50 mg tablet,extended release 24 hr 50 mg PO QDAY #30 tab 12/08/18 - Patient Allergies Allergies/Adverse Reactions: Allergies Allergy/AdvReac Type Severity Reaction Status Date / Time Penicillins AdvReac Unknown UNSURE Verified 12/22/18 10:56 Past Medical History - heen HEENT History: Cataracts, Dentures/Partials Additional HEENT History: bottom Cardiovascular History: Hypertension, CHF, Arrhythmia, Valvular Heart Disease, Hyperlipidemia, Other (please comment) Additional Cardiovasular History: 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 Pulmonary Edema Respiratory History: Other (please comment) Additional Respiratory History: Hypoxia secondary to CHF Gastrointestinal History: GERD Genitourinary History: Denies History Additional Genitourinary History: UTI 12/12/2015 Endocrine History: Hypothyroidism Musculoskeletal History: Back Pain Prosthesis or Implant: No Neurological History: TIA Blood Disorders: Previous Bld Transfusions Additional Blood Disorders History: with heart surgery Psychiatric History: Denies History History of Sexually Transmitted Diseases: No Cancer History: Denies History History of MDRO: No History of Other Communicable Diseases: No Alcohol Use: Occasionally In the Past 12 Months, Have Used or Abuse Any Substance: None Previous Surgical History: Yes Type / Date of Surgery: hysterectomy/ open heart/ CATARACT EXT/Tubal/Breast b iopsy/Mitral valve repair/Aortic valve replacement Anesthesia Reactions: No Malignant Hyperthermia: No Significant Family History: Cancer ROS - Limitations ROS Limitations: No Limitations Constitution: REPORTS: Denies Symptoms Cardiovascular: REPORTS: Heart Racing Respiratory: REPORTS: Shortness Of Breath Neurological: REPORTS: Denies Neuro Symptoms Gastrointestinal: REPORTS: Denies GI Symptoms Endocrine: REPORTS: Fatigue Musculoskeletal: REPORTS: Denies MS Symptoms Genitourinary: REPORTS: Denies Symptoms Eyes: REPORTS: Denies Symptoms ENT: REPORTS: Denies Symptoms Skin: REPORTS: Denies Skin Symptoms Lympathic: REPORTS: Denies Lympathic Symptoms Immunologic: POSITIVE: Denies Symptoms Psychiatric: POSITIVE: Denies Psych Symptoms Dyspnea Physical Exam - General Appearance General Appearance: REPORTS: Alert, Cooperative, No Acute Distress, No Evidence of Trauma - HEENT HEENT: POSITIVE: Head Inspection Nml, Eyes Inspection Nml, Ears Inspection Nml, Nose Inspection Nml, Oral/Dental Inspect. Nml, Pharynx Inspect. Nml, PERRL, EOMI - Neck Neck: REPORTS: Normal Inspection - Respiratory Respiratory: REPORTS: No Respiratory Distress, No Pleuritic Chest Pain, Speaks Full Sentences, No Pain on Inspiration, Other (Crackles in the bilateral bases) - Cardiovascular Cardiovascular: REPORTS: Heart Sounds Normal, Strong Pulses, No Murmur, No Gallop, No Friction Rub, No JVD, Irregularly Irreg Rhythm, Tachycardia Peripheral Pulses: Radial (L): 4+ - Abdomen Abdomen: Soft: (All Quadrants), Normal Bowel Sounds: (All Quadrants), Denies Tenderness: (All Quadrants), No Splenomegaly: (All Quadrants), No Hepatomegaly: (All Quadrants), No Guarding: (All Quadrants), No Rebound: (All Quadrants), No Palpable Pulse: (All Quadrants), No Palpabale Mass: (All Quadrants), No Distention: (All Quadrants), No Rigidity: (All Quadrants) - Skin Skin: REPORTS: Intact, Normal For Race, Warm, Dry, No Rash - Extremities Extremity: Non-Tender: (All Extremities), Normal ROM: (All Extremities), Normal Inspection: (All Extremities), Pelvis Stable: (All Extremities) - Neurological / Psychological Neurological: POSITIVE: Affect Apporpriate, Oriented X3, Motor Normal, Sensation Normal Dyspnea Progress - Results Reviewed by me Xrays/CTs/US Reviewed by me: Yes Discussed with Radiologist: Yes Lab Results Reviewed by Me: Yes CBC and BMP: 12/22/18 14:08 12/22/18 14:08 Lab Results:: Laboratory Results 12/22/18 12/22/18 12/22/18 14:08 14:08 14:08 WBC 7.19 RBC 4.19 L Hgb 12.7 Hct 38.6 MCV 92.1 MCH 30.3 MCHC 32.9 L RDW Std Deviation 44.9 RDW Coeff of Joseph 13.5 Plt Count 298 MPV 9.6 Immature Gran % (Auto) 0.1 Neut % (Auto) 59.6 Lymph % (Auto) 26.3 Spalding % (Auto) 11.5 Eos % (Auto) 1.9 Baso % (Auto) 0.6 Immature Gran # (Auto) 0.01 Neut # (Auto) 4.28 Lymph # (Auto) 1.89 Spalding # (Auto) 0.83 H Eos # (Auto) 0.14 Baso # (Auto) 0.04 WBC Morphology Comment Normal morphology Plt Morphology Comment Normal morphology RBC Morph Comment Normal morphology PT 21.8 H INR 1.88 VBG pH VBG pCO2 VBG HCO3 VBG Base Excess Sodium 138 Potassium 4.1 Chloride 108 Carbon Dioxide 20 L Anion Gap 10 BUN 22 Creatinine 1.1 Estimated GFR Not Reportable BUN/Creatinine Ratio 20.00 Glucose 98 Calculated Osmolality 288.0 Lactic Acid Calcium 8.6 L Magnesium 1.7 Total Bilirubin 0.6 AST 93 H ALT 124 H Alkaline Phosphatase 94 Total Creatine Kinase 30 CK-MB (CK-2) Troponin I Handheld NT-Pro-B Natriuret Pep 9390 H Total Protein 6.2 Albumin 3.3 L Globulin 2.9 Albumin/Globulin Ratio 1.10 L TSH Free T4 12/22/18 12/22/18 12/22/18 14:08 14:08 14:08 WBC RBC Hgb Hct MCV MCH MCHC RDW Std Deviation RDW Coeff of Joseph Plt Count MPV Immature Gran % (Auto) Neut % (Auto) Lymph % (Auto) Spalding % (Auto) Eos % (Auto) Baso % (Auto) Immature Gran # (Auto) Neut # (Auto) Lymph # (Auto) Spalding # (Auto) Eos # (Auto) Baso # (Auto) WBC Morphology Comment Plt Morphology Comment RBC Morph Comment PT INR VBG pH VBG pCO2 VBG HCO3 VBG Base Excess Sodium Potassium Chloride Carbon Dioxide Anion Gap BUN Creatinine Estimated GFR BUN/Creatinine Ratio Glucose Calculated Osmolality Lactic Acid 1.4 Calcium Magnesium Total Bilirubin AST ALT Alkaline Phosphatase Total Creatine Kinase CK-MB (CK-2) 0.76 Troponin I Handheld 0.010 NT-Pro-B Natriuret Pep Total Protein Albumin Globulin Albumin/Globulin Ratio TSH 5.61 H Free T4 12/22/18 12/22/18 14:08 14:13 WBC RBC Hgb Hct MCV MCH MCHC RDW Std Deviation RDW Coeff of Joseph Plt Count MPV Immature Gran % (Auto) Neut % (Auto) Lymph % (Auto) Spalding % (Auto) Eos % (Auto) Baso % (Auto) Immature Gran # (Auto) Neut # (Auto) Lymph # (Auto) Spalding # (Auto) Eos # (Auto) Baso # (Auto) WBC Morphology Comment Plt Morphology Comment RBC Morph Comment PT INR VBG pH 7.37 VBG pCO2 35 L VBG HCO3 20 L VBG Base Excess -5 L Sodium Potassium Chloride Carbon Dioxide Anion Gap BUN Creatinine Estimated GFR BUN/Creatinine Ratio Glucose Calculated Osmolality Lactic Acid Calcium Magnesium Total Bilirubin AST ALT Alkaline Phosphatase Total Creatine Kinase CK-MB (CK-2) Troponin I Handheld NT-Pro-B Natriuret Pep Total Protein Albumin Globulin Albumin/Globulin Ratio TSH Free T4 1.79 H EKG Interpreted/Reviewed By Me:: Yes (atrial flutter with RVR 131 bpm, no ST elevation.) EKG Interpretation:: POSITIVE: Abnormal EKG - Patient's Progress Pain Medication Addressed: POSITIVE: Not Applicable Status: POSITIVE: Improved MDM / ED Course: Patient was evaluated, an IV started, blood drawn and sent to the lab for studies, chest x-ray and EKG were obtained. Findings: CBC shows white count hemoglobin and hematocrit platelets are normal, coag studies show PT of 21.8, INR 1.88. Blood gases show pH is 7.37, PCO2 35, bicarbonate of 20, base excess is -2. Lactic acid is 1.4. BNP is elevated at 9390. Troponin is 0.010, CK of 30, CK-MB is 0.76. CMP shows abnormalities with a CO2 of 20, calcium of 8.6, AST of 93, ALT of 124, albumin of 3.3, the remainder the panel was normal. TSH is high at 5.61, free T4 is 1.79. Chest x- ray shows congestive heart failure with cardiomegaly. Assessment: #1 atrial fibrillation with RVR. #2 congestive heart failure. Plan: Patient being admitted by the hospitalist. She is started here in the emergency room on diltiazem drip. Quality Measure Initiative: CP/AMI: POSITIVE: EKG Quality Measure Initiative: CAP: POSITIVE: CXR or CT - Consult Counseled: POSITIVE: Patient, RE: Lab Results, RE: Radiology Results, RE: DX, RE: Need for F/U Patient Care Time - Estimated PCT Patient Care Time (In Minutes): 60 Vital Signs - VS Reviewed Vital Signs Reviewed: Yes Discharge Clinical Impression: Congestive heart failure, Atrial fibrillation with RVR Discharge Disposition: Admit to Inpatient Condition: Stable Patient Problem(s) Reviewed: Yes Date Decision to Admit to Inpatient: 12/22/18 Time Decision to Admit to Inpatient: 13:56
[2018-12-22] MEDS ORDERED: Sodium Chloride 0.9% 1,000 ML PRIMARY IV ONE (11:24)
[2018-12-22] MEDS ORDERED: IPRATROPIUM/ALBUTEROL SULFATE 3 ML NEB NEB ONE (11:24)
[2018-12-22] MEDS ORDERED: DILTIAZEM 5 MG/ML - 5 ML IV ONE (11:28)
[2018-12-22] MEDS ORDERED: Diltiazem Drip 125 MG in Sodium Chloride 0.9% 100 ML IV ONE (11:28)
--- NOTE | 2018-12-22 13:40 | DI ---
PA /LATERAL CHEST, 12/22/2018 12:00 PM : Clinical History: Shortness of breath. Previous Exam: 10/12/2018. Soft Tissues: No acute soft tissue abnormality. Status post aortic valve replacement with placement o f the clip probably over the left atrial appendage. Bones: Normal. Heart: Heart Size: Cardiomegaly. The right heart contour is more prominent than before. Vascular Pedi heron Width: Increased indicating increased circulating blood volume. Azygous Vein: Larger than before and increased indicating elevated right atrial pressure. Vascular Flow Pattern:Reversal of flow to up per lobes indicating chronic elevated left atrial pressure. The debora are sharp, and there is no incre ased lung density. No peribronchial cuffing or perivascular haziness present. Pulmonary Arteries: Normal. Lungs: The patient has developed bilateral lower lobe infiltrates with very small pleural effusions. The bilateral involvement raises the possibility of aspiration pneumonitis. Effusion(s): Very small pleural effusions bilaterally. Mediastinum: Normal. Nodules: No pulmonary nodules. Readin. There are bilateral lower lobe infiltrates that have developed since the last exam. The bilateral presentation raises the possibility of aspiration pneumonia. 2. Cardiomegaly with left atrial enlargement. There is reversal of flow to the upper lobes indicatin g chronic left heart failure, well compensated. No evidence of interstitial pulmonary edema. There is increased circulating blood volume with enlargement of the azygos vein in a more prominent right hea rt contour. The patient may have developed right heart failure. These findings should be correlated w ith the physical findings and laboratory values.
--- NOTE | 2018-12-22 14:17 | DI ---
AP CHEST X-RAY, 12/22/2018 2:05 PM : Clinical History: Status post Central line placement. Verification of catheter tip location. Previous Exam: Earlier today at 1238 hours. Soft Tissues: A right internal jugular catheter has been inserted and the catheter tip is right at th e junction with the superior vena cava and right atrium. The catheter could be pulled back 2 cm. Bones: Normal. Heart: Heart Size: Cardiomegaly. Vascular Pedicle Width: Cannot be assessed. Azygous Vein: Cannot be assessed. Vascular Flow Pattern:Redistribution consistent with a supine chest x-ray. Pulmonary Arteries: Normal. Lungs: Bilateral lower lobe infiltrates. No pneumothorax. Effusion(s): Small bilateral pleural effusions. Mediastinum: Normal. Nodules: No pulmonary nodules. Readin. The central venous catheter can be withdrawn about 2 cm. 2. There is no pneumothorax.
[2018-12-22 14:19] LABS: VENOUS PH 7.37 (7.32-7.42)
[2018-12-22 14:20] LABS: BASOPHILS # (AUTO) 0.04 10*3/UL; BASOPHILS % (AUTO) 0.6 % (0-1); EOSINOPHILS # (AUTO) 0.14 10*3/UL; EOSINOPHILS % (AUTO) 1.9 % (0-8); Hematocrit [HCT] 38.6 % (37.0-47.0); Hemoglobin [HGB] 12.7 g/dL (12.0-16.0); LYMPHOCYTES # (AUTO) 1.89 10*3/uL; MEAN CORPUSCULAR HGB CONC 32.9 g/dL (33-37); MEAN CORPUSCULAR VOLUME 92.1 FL (81-99); MEAN PLATELET VOLUME 9.6 FL (7.4-12.2); MONOCYTES # (AUTO) 0.83 10*3/UL (0.3-0.8); MONOCYTES % (AUTO) 11.5 % (5-15); NEUTROPHILS # (AUTO) 4.28 10*3/UL; NEUTROPHILS % (AUTO) 59.6 % (50-80); RED BLOOD COUNT 4.19 10^6/uL (4.20-5.40)
[2018-12-22 14:21] LABS: PLATELET MORPHOLOGY COMMENT NORMAL MORPHOLOGY (NORM); RBC MORPHOLOGY COMMENT NORMAL MORPHOLOGY (NORM); WBC MORPHOLOGY COMMENT NORMAL MORPHOLOGY (NORM)
[2018-12-22] MEDS ORDERED: FUROSEMIDE 10 MG/1 ML - 4 ML IVP ONE (15:10)
[2018-12-22] MEDS ORDERED: LIDOCAINE HCL 2 % 10 ML JELLY URO-JECT TOPICAL PRN ×3 (15:10→16:11)
[2018-12-22 15:35] LABS: BLOOD UREA NITROGEN 22 mg/dL (7-22); SERUM ALBUMIN 3.3 g/dL (3.5-4.8)
--- NOTE | 2018-12-22 15:49 | PDOC ---
HPI - History of Present Illness History of Present Illness: This very nice 88-year-old female who presented to the ER for her primary care physician's office for increased heart rate has any chest pain. He was discharg ed 3 months ago and had a good summer she was also found to have some infiltrates on chest x-ray but no white count or left shift. She was found to be in A. fib RVR central line was placed because of access. Patient will be admitted to the ICU on diltiazem drip. He does not say much in the lower quadrant is slightly laterally Past Medical History Medical History: 1. Hypertension. 2. GERD. 3. hypothyroidism. 4. 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 5. History of atrial fibrillation. 6. History of mitral valve clipping. 7. Admission in September 2017 for TIA. 8. hypercholesterolemia. 9. Admission November 2017 for uncontrolled atrial flutter she was transferred to [facility] [place] and she needed cardioversion. 10. Slipped on ice April 2018 that resulted in distal fibula fracture. 11. seizure disorder likely. 12. mild to moderate dementia. Surgical History: 1. Hysterectomy. 2. Aortic valve replacement with Maze procedure for atrial fibrillation. 3. Status post mitral valve clipping Family History: Reviewed an Not Pertinent Pertinent Family History: I cannot obtain this patient information due to her dementia and confusion Past Social History: Does not currently smoke tobacco. No alcohol. Daughter checks in on the patient frequently. She has known dementia. Tobacco Use: Never Smoker In the Past 12 Months, Have Used or Abuse Any of the Following Substance: None Medication / Allergies Home Medications: Home Medications Medication Instructions Recorded Confirmed apixaban 2.5 mg tablet 2.5 mg PO BID #60 tab 11/04/18 12/22/18 aspirin 81 mg tablet,delayed 81 mg PO QDAY #30 tab 11/04/18 12/22/18 release brimonidine-timolol 0.2 %-0.5 % 1 drp OP Q12H #10 ml 11/04/18 12/22/18 eye drops cholecalciferol (vitamin D3) 1,000 1,000 unit PO QDAY #30 cap 11/04/18 12/22/18 unit capsule latanoprost (PF) 0.005 % eye drops 1 drp OP BID #7.5 ml 11/04/18 12/22/18 levothyroxine 50 mcg tablet 50 mcg PO DAILY #30 tab 11/04/18 12/22/18 lisinopril 20 mg tablet 20 mg PO QDAY #30 tab 11/04/18 12/22/18 omeprazole 20 mg capsule,delayed 20 mg PO QDAY #90 cap 11/04/18 12/22/18 release potassium chloride ER 10 mEq 10 meq PO QDAY #90 tab 11/04/18 12/22/18 tablet,extended release levetiracetam 250 mg tablet 250 mg PO BID #60 tab 12/08/18 12/22/18 metoprolol succinate ER 50 mg 50 mg PO QDAY #30 tab 12/08/18 12/22/18 tablet,extended release 24 hr Allergies/Adverse Reactions: Allergies Allergy/AdvReac Type Severity Reaction Status Date / Time Penicillins AdvReac Unknown UNSURE Verified 12/22/18 10:56 Review of Systems - Review of Systems All Systems: Reviewed & No Additional Complaints Except as Stated - Respiratory Respiratory: DENIES: Negative System Review, Cough, Sputum, Dyspnea At Rest, Dyspnea with Exertion, Pleuritic Pain, Hemoptysis, Wheezing, Other, See HPI - Cardiovascular Cardiovascular: DENIES: Negative System Review, Chest Pain, Edema, Syncope, Palpitations, Orthopnea, Paroxysmal Nocturnal Dyspnea, Other, See HPI Exam - Vitals Vital Signs: Vital Signs Temperature 96.8 F Temperature Source Temporal Artery Scan Pulse Rate [Pulse Oximeter] 128 Pulse Rate 129 Respiratory Rate 16 Blood Pressure [Right Arm] 142/111 Pulse Ox 95 Oxygen Flow Rate 0 Oxygen Delivery Method Room Air Height 5 ft 6 in Weight 145 lb - General General Appearance: No Acute Distress, Cooperative - Eye Eye Exam: POSITIVE: Normal Appearance, PERRL, EOMI, No Scleral Icterus - Respiratory Respiratory Exam: POSITIVE: Clear to Auscultation - Bilaterally, Breathing Non Labored, Normal To Percussion, Normal to Percussion and Palpation - Cardiovascular Cardiovascular Exam: POSITIVE: Irregular Rhythm - GI/Abdominal GI/Abdominal Exam: POSITIVE: Normal Bowel Sounds, Non Tender, Non Distended, Soft, No Masses, No Hepatomegaly, No Splenomegaly, No Organomegaly - Extremities Extremities Exam: POSITIVE: No Clubbing Present, No Edema Present, No Cyanosis Present Results - Labs CBC and BMP: 12/22/18 14:08 12/22/18 14:08 Assessment and Plan - Patient Problems (1) Atrial fibrillation with rapid ventricular response Current Visit: Yes Status: Chronic Code(s): I48.91 - Unspecified atrial fibrillation (2) CHF (congestive heart failure) Current Visit: Yes Status: Chronic Code(s): I50.9 - Heart failure, unspecified Qualifiers: - Assessment / Plan Additional Assessment/Plan Details: #1 #141 Admit the patient with together with controlled continue her beta joan, the echo insert Barton catheter diuresed patient EKG she is in congestive heart failure. Troponin remains negative #2 possible pneumonia on chest x-ray I will order a CT scan to confirm I see no clinical signs of pneumonia and no left shift or white count
[2018-12-22] MEDS ORDERED: ASPIRIN EC 81 MG TABLET PO SCH (16:11)
[2018-12-22] MEDS ORDERED: [UNRECOGNIZED DRUG - OTHER] OP SCH (16:11)
[2018-12-22] MEDS ORDERED: METOPROLOL SUCCINATE 50 MG SR 24H TABLET PO SCH (16:11)
[2018-12-22] MEDS ORDERED: BRIMONIDINE TARTRATE OP SCH (16:11)
[2018-12-22] MEDS ORDERED: Acetaminophen 1000mg Inj 1,000 MG/100 ML VIAL IV PRN (16:11)
[2018-12-22] MEDS ORDERED: LEVETIRACETAM 250 MG PO SCH (16:11)
[2018-12-22] MEDS ORDERED: ONDANSETRON 4 MG/2 ML VIAL IV PRN (16:11)
[2018-12-22] MEDS ORDERED: Apixaban Tab 2.5 MG TABLET PO SCH ×2 (16:11→21:00)
[2018-12-22] MEDS ORDERED: TIMOLOL OP SCH (16:11)
[2018-12-22] MEDS ORDERED: LIDOCAINE W/ SODIUM BICARB 0.5 ML SYR SUBD PRN (16:11)
[2018-12-22] MEDS ORDERED: LATANOPROST OP SCH (16:11)
[2018-12-22] MEDS ORDERED: OMEPRAZOLE 20 MG CAPSULE PO SCH (16:30)
[2018-12-22] MEDS ORDERED: Cefepime Inj 2 GM in Sodium Chloride 0.9% 100 ML IV SCH (16:30)
[2018-12-22] MEDS ORDERED: ADENOSINE 6 MG/2 ML IVP ONE ×3 (17:53→18:14)
[2018-12-22 18:11] VITALS: O2SAT 95
[2018-12-22] MEDS ORDERED: Magnesium Sulfate 2gm (Premix) 2 GM/50 ML BAG IV ONE (18:38)
--- NOTE | 2018-12-22 18:46 | DCSUMMARY ---
Hospitalization Summary Hospital Course: Please see H&P an addendum note ratio was admitted was not better try to chemically cardiovert unsuccessful was transferred to [facility] Exam - Vitals Vital Signs: Vital Signs Temperature 98.0 F Temperature Source Oral Pulse Rate [Pulse Oximeter] 133 Pulse Rate [pulse ox] 133 Pulse Rate 131 Respiratory Rate 22 Blood Pressure [LEft arm] 110/80 Blood Pressure [Right Arm] 128/99 Blood Pressure 137/100 Pulse Ox [pulse ox] 94 Pulse Ox 95 Oxygen Flow Rate [pulse ox] 2 Oxygen Flow Rate 2 Oxygen Delivery Method [pulse Nasal Cannula ox] Oxygen Delivery Method Nasal Cannula Height 5 ft 6 in Weight 147 lb 8 oz Patient Problems - Patient Problem List (1) Atrial fibrillation with rapid ventricular response Current Visit: Yes Status: Chronic Comment: Cardizem drip, anticoagulation with a eliquis, apparently this is her first episode was started today her chest to scores is greater than 2 Code(s): I48.91 - Unspecified atrial fibrillation Category: Medical (2) CHF (congestive heart failure) Current Visit: Yes Status: Chronic Comment: will decrease lasix to 20 bid secondary to bump in creatinine repeat xray Code(s): I50.9 - Heart failure, unspecified Qualifiers: Category: Medical
[2018-12-22 19:22] VITALS: TEMP 97.9
[2018-12-22 20:11] VITALS: BP 116/90; RESP 20
[2018-12-22] MEDS ORDERED: TIMOLOL EACH EYE SCH (21:00)
[2018-12-22] MEDS ORDERED: ASCORBIC ACID Chewable 500 MG TABLET PO SCH (21:00)
[2018-12-22] MEDS ORDERED: EYE EACH EYE SCH (21:00)
[2018-12-22] MEDS ORDERED: LevETIRAcetam Tab 500 MG TABLET PO SCH (21:00)
[2018-12-22] MEDS ORDERED: LATANOPROST 0.005% 2.5 ML EYE DROPS EACH EYE SCH (21:00)
[2018-12-22] MEDS ORDERED: LATANOPROST 0.005% EACH EYE SCH (21:00)
[2018-12-22] MEDS ORDERED: BRIMONIDINE TARTRATE EACH EYE SCH (21:00)
[2018-12-23] MEDS ORDERED: LEVOTHYROXINE 50 MCG TABLET PO SCH (05:30)
[2018-12-23] MEDS ORDERED: CHOLECALCIFEROL 1000 IU TABLET PO SCH (09:00)
[2018-12-23] MEDS ORDERED: Potassium Chloride Tab 10 MEQ TAB PO SCH (09:00)
== END 2018-12-22 20:11 | disposition short-term general hospital (02) | DRG 310 ==
LOC: ER 10:48 → ICU 15:10
PROVIDERS: ADMIT Internal Medicine; ATTEND Internal Medicine